=== PATIENT | male | born 1930 | race Caucasian/White ===

== ENCOUNTER → 2016-08-07 | Outpatient (CLI) | payer OTHER, MEDICARE ==
[~2016-08-07] MED LIST: ASPI81TA21 PO; CEFD1CAP14 PO; DICL-201 PO; DICL1GEL12 TOP; DTRSR/2 PO; LEVO88TA PO; LIDO1CRE16 TOP; LVQ500 PO; MOMLX PO; MULT-190 PO; Nicotine TD; POLY335019 PO; RISP0.5T4 PO; SENN-65 PO; SIMV40TA4 PO; TPRSR25 PO; TRAZ50TA35 PO
[2016-08-07 12:47] LABS: BASO % 0.7 %; BASO ABS # 0.04 K/uL (0-0.2); EOS % 3.7 %; HEMATOCRIT 35.7 % (42-52); IG% 0.7 %; LYMPH % 30.9 %; LYMPH ABS # 1.86 K/uL (1.2-3.4); MEAN CELL VOLUME 94.9 fL (80-100); MEAN CORPUSCULAR HEMOGLOBIN 31.9 pg (25-34); MEAN CORPUSCULAR HGB CONC 33.6 g/dl (32-36); MEAN PLATELET VOLUME 9.4 fL (7.4-10.4); MONO % 7.3 %; NEUT % 56.7 %; PLATELET COUNT 124 K/uL (130-400); RED BLOOD COUNT 3.76 M/uL (4.7-6.1); WHITE BLOOD COUNT 6.01 K/uL (4.8-10.8)
[2016-08-07 13:01] LABS: FERRITIN 93.8 ng/ml (8.0-388.0)
[2016-08-07 13:16] LABS: COMPLETE YES
== END | disposition home or self-care (01) ==
LOC: C.LABSPEC 12:11
PROVIDERS: ATTEND Internal Medicine Hematology & Oncology
DX: G93.41 Metabolic encephalopathy (principal); D63.8 Anemia in other chronic diseases classified elsewhere; E11.9 Type 2 diabetes mellitus without complications; D50.9 Iron deficiency anemia, unspecified

== ENCOUNTER 2016-11-04 07:16 | Emergency (ER) | payer OTHER, MEDICARE ==
[~2016-11-04] VITALS: Ht 175.3 cm; Wt 120.0 kg
[~2016-11-04 07:16] MED LIST changes: -CEFD1CAP14 PO; -DICL1GEL12 TOP; -LIDO1CRE16 TOP; -LVQ500 PO; -MOMLX PO; -Nicotine TD; -POLY335019 PO; -RISP0.5T4 PO; -TPRSR25 PO; -TRAZ50TA35 PO
[2016-11-04 07:21] VITALS: O2SAT 91; Ht 175.3 cm; Wt 120.0 kg
--- NOTE | 2016-11-04 08:02 | DIAGNOSTIC IMAGING REPORT ---
CHEST ONE VIEW PORTABLE CLINICAL HISTORY: cough, sob COMPARISON STUDY: 12/24/2015 FINDINGS: The cardiac and mediastinal contours remain stable. There is a right internal jugular A-Port catheter. There is no failure. There is no lobar consolidation. There is minor basilar atelectatic change. No pleural effusions are visualized.[ IMPRESSION: AP portable study. No acute findings. Electronically signed by: Guy Valdez M.D. 11/04/2016 8:01 AM Dictated Date/Time: 11/04/2016 8:00 AM
[2016-11-04] MEDS ORDERED: DICL1GEL12 TOP (08:09)
[2016-11-04] MEDS ORDERED: LIDO1CRE16 TOP (08:09)
[2016-11-04 08:15] LABS: HEMATOCRIT 39.2 % (42-52); MEAN CELL VOLUME 95.6 fL (80-100); MEAN CORPUSCULAR HEMOGLOBIN 31.2 pg (25-34); MEAN CORPUSCULAR HGB CONC 32.7 g/dl (32-36); MEAN PLATELET VOLUME 9.1 fL (7.4-10.4); PLATELET COUNT 103 K/uL (130-400); WHITE BLOOD COUNT 7.44 K/uL (4.8-10.8)
--- NOTE | 2016-11-04 08:19 | EMERGENCY ROOM VISIT NOTE ---
History Report prepared by Tory: Franchesca Reynoso Under the Supervision of: Dr. Shireen Nelson M.D. First contact with patient: 07:31 Chief Complaint: SHORTNESS OF BREATH Stated Complaint: CAN'T BREATH, UPSET STOMACH, WEAK, DONT FEEL WELL Nursing Triage Summary: Triage note: Pt reports nausea "all night." pt reports shortness of breath for the past several days. pt reports generalized weakness. pt reports "i have a permanent catheter." History of Present Illness The patient is a 86 year old male who presents to the Emergency Room with complaints of constant shortness of breath beginning 2 days ago. The patient states that he has felt generally ill over the last week and has developed a cough and shortness of breath over the last 2 days. He complains of chills, fatigue, tiredness, lower back pain, and a cough. He denies any chest pain, abdominal pain, vomiting, diarrhea, and change in mental status. The patient reports that he has not been sleeping well and has little energy. He notes that he has a history of recurrent UTI, chronic indwelling Monson catheter, and aortic stenosis. The patient last had his Monson changed 3 weeks ago and is scheduled to have it changed again next week. Source of History: patient Onset: 2 days ago Position: other (global) Quality: other (SOB) Timing: constant Associated Symptoms: + back pain, + chills, + cough, No abdominal pain, No chest pain, No diarrhea, No vomiting Note: He complains of fatigue, tiredness. He denies any change in mental status. Review of Systems See HPI for pertinent positives & negatives. A total of 10 systems reviewed and were otherwise negative. Past Medical & Surgical Medical Problems: (1) Aortic stenosis, severe (2) Chronic anemia (3) Dyslipidemia (4) History of colon cancer (5) Hypertension (6) Lymphoma (7) Obesity Surgical Problems: (1) H/O cataract removal with insertion of prosthetic lens (2) History of amputation of lesser toe of right foot (3) S/P TURP (status post transurethral resection of prostate) Family History Omitted due to age Social History Smoking Status: Former Smoker Alcohol Use: none Drug Use: none Marital Status: Housing Status: lives with significant other Occupation Status: retired Current/Historical Medications Scheduled Aspirin Enteric Coated (Ecotrin Or Generic), 81 MG PO QAM Cefdinir (Omnicef), 300 MG PO Q12H Levothyroxine Sodium (Synthroid), 2 TAB PO QAM Ocuvite Preservision (Ocuvite Preservision), 1 TAB PO BID Simvastatin (Zocor), 20 MG PO HS Trazodone Hcl (Trazodone), Unknown Dose PO UD Scheduled PRN Diclofenac Sodium (Topical) (Voltaren 1% Top Gel), Unknown Dose TOP DAILY PRN for Pain Lidocaine-Prilocaine (Lidocaine/Prilocaine), 1 APPLN TOP UD PRN for Pain Senna/Docusate Sod (Senokot S), 1 TAB PO DAILY PRN for Constipation Allergies Coded Allergies: Baclofen (Unverified Allergy, Unknown, HIVES, 11/04/16) Sulfamethoxazole w/Trimethoprim (Unverified Allergy, Unknown, rash per PCP records , 11/04/16) Physical Exam Vital Signs Date Time Temp Pulse Resp B/P Pulse Ox O2 Delivery O2 Flow Rate FiO2 11/04/16 10:57 37.3 66 18 108/62 11/04/16 10:08 94 18 104/60 11/04/16 09:05 96 18 119/68 11/04/16 08:10 95 11/04/16 07:21 91 11/04/16 07:21 37.8 94 20 129/70 92 Room Air Physical Exam Vital signs reviewed. General: Elderly, chronically ill appearing, obese, Monson catheter in place, in no significant distress. HEENT: No scleral icterus, PERRLA, neck supple. Atraumatic. Cardiovascular: Regular rate and rhythm, no extra sounds. Pulmonary: Clear to auscultation bilaterally, normal work of breathing. Moist cough with green sputum. Abdomen: Soft, nontender, nondistended, positive bowel sounds. Musculoskeletal: Atraumatic, no peripheral edema. Neurologic: Patient awake alert and oriented x 3 generally weak however no focal deficit appreciated. Skin: Warm, dry, no rash Medical Decision & Procedures ER Provider Diagnostic Interpretation: X-ray results as stated below per interpretation by me and the radiologist: CHEST ONE VIEW PORTABLE FINDINGS: The cardiac and mediastinal contours remain stable. There is a right internal jugular A-Port catheter. There is no failure. There is no lobar consolidation. There is minor basilar atelectatic change. No pleural effusions are visualized.[ IMPRESSION: AP portable study. No acute findings. Electronically signed by: Guy Valdez M.D. 11/04/2016 8:01 AM Dictated Date/Time: 11/04/2016 8:00 AM Laboratory Results 11/04/16 07:50 Red Blood Count 4.10, Mean Corpuscular Volume 95.6, Mean Corpuscular Hemoglobin 31.2, Mean Corpuscular Hemoglobin Concent 32.7, Mean Platelet Volume 9.1, Neutrophils (%) (Auto) 67.4, Lymphocytes (%) (Auto) 17.3, Monocytes (%) (Auto) 12.2, Eosinophils (%) (Auto) 1.9, Basophils (%) (Auto) 0.3, Neutrophils # (Auto ) 5.01, Lymphocytes # (Auto) 1.29, Monocytes # (Auto) 0.91, Eosinophils # (Auto ) 0.14, Basophils # (Auto) 0.02 11/04/16 07:50 Test 11/04/16 07:50 11/04/16 08:14 11/04/16 08:40 White Blood Count 7.44 K/uL (4.8-10.8) Red Blood Count 4.10 M/uL (4.7-6.1) Hemoglobin 12.8 g/dL (14.0-18.0) Hematocrit 39.2 % (42-52) Mean Corpuscular Volume 95.6 fL (80-100) Mean Corpuscular Hemoglobin 31.2 pg (25-34) Mean Corpuscular Hemoglobin Concent 32.7 g/dl (32-36) Platelet Count 103 K/uL (130-400) Mean Platelet Volume 9.1 fL (7.4-10.4) Neutrophils (%) (Auto) 67.4 % Lymphocytes (%) (Auto) 17.3 % Monocytes (%) (Auto) 12.2 % Eosinophils (%) (Auto) 1.9 % Basophils (%) (Auto) 0.3 % Neutrophils # (Auto) 5.01 K/uL (1.4-6.5) Lymphocytes # (Auto) 1.29 K/uL (1.2-3.4) Monocytes # (Auto) 0.91 K/uL (0.11-0.59) Eosinophils # (Auto) 0.14 K/uL (0-0.5) Basophils # (Auto) 0.02 K/uL (0-0.2) RDW Standard Deviation 47.5 fL (36.4-46.3) RDW Coefficient of Variation 13.5 % (11.5-14.5) Immature Granulocyte % (Auto) 0.9 % Immature Granulocyte # (Auto) 0.07 K/uL (0.00-0.02) Anion Gap 8.0 mmol/L (3-11) Est Creatinine Clear Calc Drug Dose 72.7 ml/min Estimated GFR () 84.3 Estimated GFR (Non- 72.7 BUN/Creatinine Ratio 23.6 (10-20) Calcium Level 8.7 mg/dl (8.5-10.1) Lactic Acid Level 1.3 mmol/L (0.4-2.0) Urine Color YELLOW Urine Appearance CLEAR (CLEAR) Urine pH 5.0 (4.5-7.5) Urine Specific [place] 1.015 (1.000-1.030) Urine Protein NEG (NEG) Urine Glucose (UA) NEG (NEG) Urine Ketones NEG (NEG) Urine Occult Blood TRACE (NEG) Urine Nitrite POS (NEG) Urine Bilirubin NEG (NEG) Urine Urobilinogen NEG (NEG) Urine Leukocyte Esterase MODERATE (NEG) Urine WBC (Auto) 10-30 /hpf (0-5) Urine RBC (Auto) 0-4 /hpf (0-4) Urine Hyaline Casts (Auto) 1-5 /lpf (0-5) Urine Epithelial Cells (Auto) 0-5 /lpf (0-5) Urine Bacteria (Auto) 1+ (NEG) Laboratory results per my review. Medications Administered Medications (Trade) Dose Ordered Sig/Robert Route Start Time Stop Time Status Last Admin Dose Admin Acetaminophen 650 mg 650 mg NOW STAT PO 11/04/16 08:39 11/04/16 08:41 DC 11/04/16 09:06 650 MG Sodium Chloride (Nss 1000ml) 1,000 ml @ 100 mls/hr Q10H IV 11/04/16 08:45 11/04/16 11:42 DC 11/04/16 09:07 100 MLS/HR Ceftriaxone Sodium (Rocephin Inj) 1 gm NOW STAT IV 11/04/16 09:06 11/04/16 09:07 DC 11/04/16 09:31 1 GM Albuterol/ Ipratropium (Duoneb) 3 ml ONE ONCE INH 11/04/16 09:15 11/04/16 09:16 DC 11/04/16 09:33 3 ML ECG Rate (beats per minute): 96 Rhythm: sinus rhythm Findings: RBBB, left axis deviation, other (Premature supraventricular complexes, previous inferior infarct) ED Course 0731: Past medical records reviewed. The patient was evaluated in room B10. A complete history and physical examination was performed. 0839: Tylenol Tab 650mg PO. 0845: Sodium Chloride 1000 ml @ 100 mls/hr IV. 0906: Rocephin Inj 1gm IV. 0915: Duoneb 3ml INH. 0952: I reevaluated the patient and he is doing well. 1021: Upon reevaluation, the patient appeared to have improvement of his symptoms. I discussed findings with the patient. He verbalized agreement of the treatment plan. The patient was discharged home. Medical Decision Differential diagnosis: Influenza, other viral illness, pneumonia, urinary tract infection, metabolic abnormality, medication effect, cellulitis, meningitis, intra-abdominal source. Medication Reconciliation: I attest that I have personally reviewed the patient' s current medication list. Blood Pressure Screening: Patient was found to have normal blood pressure on screening and does not require follow-up. This patient was evaluated and appeared to be in no significant distress. The patient had a mild increased work of breathing with moist cough. The patient had spit up some green sputum prior to my evaluation. Chest x-ray is clear. Laboratory work reveals a normal white blood cell count, UA is concerning for infection. Monson catheter was changed. The patient was medicated with IV ceftriaxone. He was given oral Tylenol for his low-grade fever. Patient felt better after a DuoNeb treatment. He was placed on Omnicef 300 mg twice a day for 10 days. Patient will follow-up with his physician this week for reevaluation and return to the ER for worsening of symptoms or any medical concerns. Impression Primary Impression: UTI (urinary tract infection) Additional Impression: Bronchitis Scribe Attestation The scribe's documentation has been prepared under my direction and personally reviewed by me in its entirety. I confirm that the note above accurately reflects all work, treatment, procedures, and medical decision making performed by me. Departure Information Dispostion Home / Self-Care Prescriptions Cefdinir (Omnicef) 300 Mg Cap 300 MG PO Q12H for 10 Days, #20 CAP Prov: Minh Sage MD 11/04/16 Referrals Arash Gomez M.D. (PCP) Forms HOME CARE DOCUMENTATION FORM, IMPORTANT VISIT INFORMATION Patient Instructions My [facility] Additional Instructions - Please follow up with your Primary Care Physician in the next week - For your records you had your Monson Catheter changed on 11/04/2016 - Please take Omnicef 300mg tablet twice daily for your urinary tract infection and also bronchitis - Continue to take Tylenol as needed for fever - If your symptoms do not improve over the next 3 days or you present with worsening fever, chills, fatigue, change in mental status, shortness of breath, or any other concerning symptoms please return to the hospital to be evaluated Problem Qualifiers
[2016-11-04 08:31] LABS: BUN/CREATININE RATIO 23.6 (10-20); CREATININE 0.95 mg/dl (0.60-1.40)
[2016-11-04 08:37] LABS: CALCIUM 8.7 mg/dl (8.5-10.1)
[2016-11-04] MEDS ORDERED: ACETAMINOPHEN 325 MG TAB PO STA (08:39)
[2016-11-04 08:44] LABS: BASO % 0.3 %; BASO ABS # 0.02 K/uL (0-0.2); COMPLETE YES; EOS % 1.9 %; IG% 0.9 %; LYMPH % 17.3 %; LYMPH ABS # 1.29 K/uL (1.2-3.4); MONO % 12.2 %; NEUT % 67.4 %
[2016-11-04] MEDS ORDERED: SODIUM CHLORIDE 0.9% 1000ML 1,000 ML IV SCH (08:45)
[2016-11-04 09:00] LABS: MANUAL MICROSCOPIC REQUIRED? NO; REVIEW REQ? NO; URINE APPEARANCE CLEAR (CLEAR); URINE BILIRUBIN NEG (NEG); URINE COLOR YELLOW; URINE EPITHELIAL CELL AUTO 0-5 /lpf (0-5); URINE NITRITE POS (NEG); URINE SPECIFIC GRAVITY 1.015 (1.000-1.030); UROBILINOGEN NEG (NEG)
[2016-11-04] MEDS ORDERED: CEFTRIAXONE SOD INJ 1 GM ADDVIAL IV STA (09:06)
[2016-11-04] MEDS ORDERED: TRAZ50TA35 PO (09:13)
[2016-11-04] MEDS ORDERED: ALBUT/IPRATROP 3MG/0.5MG NEB 3 ML VIAL INH ONE (09:15)
--- NOTE | 2016-11-04 10:17 | EMERGENCY ROOM VISIT NOTE ---
History First contact with patient: 07:32 Chief Complaint: SHORTNESS OF BREATH Stated Complaint: CAN'T BREATH, UPSET STOMACH, WEAK, DONT FEEL WELL Nursing Triage Summary: Triage note: Pt reports nausea "all night." pt reports shortness of breath for the past several days. pt reports generalized weakness. pt reports "i have a permanent catheter." History of Present Illness The patient is a 86 year old male with a past medical history of recurrent UTI, chronic indwelling beebe catheter, and aortic stenosis who presents to the Emergency Room with complaints of shortness of breath and fatigue. The patient states that he has felt "bad all over" for the last weeks. Over the last 2 days his has noticed he has been coughing more often and more tired. He says he has no energy and wants to sleep all day. The patient states he has had the chills and has not been sleeping well. The patient last had his beebe changed 3 weeks ago and is scheduled to have it changed again next week. He denies any fevers, nausea, vomiting, diarrhea, abdominal pain, or chest pain. Review of Systems See HPI for pertinent positives and negatives. A total of ten systems were reviewed and were otherwise negative. Past Medical/Surgical History Medical Problems: (1) Aortic stenosis, severe (2) Chronic anemia (3) Dyslipidemia (4) History of colon cancer (5) Hypertension (6) Lymphoma (7) Obesity Surgical Problems: (1) H/O cataract removal with insertion of prosthetic lens (2) History of amputation of lesser toe of right foot (3) S/P TURP (status post transurethral resection of prostate) Family History Omitted due to age Social History Smoking Status: Former Smoker Alcohol Use: none Drug Use: none Marital Status: Housing Status: lives with significant other Occupation Status: retired Current/Historical Medications Scheduled Aspirin Enteric Coated (Ecotrin Or Generic), 81 MG PO QAM Levothyroxine Sodium (Synthroid), 2 TAB PO QAM Ocuvite Preservision (Ocuvite Preservision), 1 TAB PO BID Simvastatin (Zocor), 20 MG PO HS Trazodone Hcl (Trazodone), Unknown Dose PO UD Scheduled PRN Diclofenac Sodium (Topical) (Voltaren 1% Top Gel), Unknown Dose TOP DAILY PRN for Pain Lidocaine-Prilocaine (Lidocaine/Prilocaine), 1 APPLN TOP UD PRN for Pain Senna/Docusate Sod (Senokot S), 1 TAB PO DAILY PRN for Constipation Allergies Coded Allergies: Baclofen (Unverified Allergy, Unknown, HIVES, 11/04/16) Sulfamethoxazole w/Trimethoprim (Unverified Allergy, Unknown, rash per PCP records , 11/04/16) Physical Exam Vital Signs Date Time Temp Pulse Resp B/P Pulse Ox O2 Delivery O2 Flow Rate FiO2 11/04/16 09:05 96 18 119/68 11/04/16 08:10 95 11/04/16 07:21 91 11/04/16 07:21 37.8 94 20 129/70 92 Room Air Physical Exam GENERAL: Awake, alert, well-appearing, in no distress HENT: Normocephalic, atraumatic. Oropharynx unremarkable. EYES: Normal conjunctiva. Sclera non-icteric. NECK: Supple. No nuchal rigidity. RESPIRATORY: Clear to auscultation. CARDIAC: Regular rate, normal rhythm. Systolic ejection murmur. Extremities warm and well perfused. Pulses equal. ABDOMEN: Soft, non-distended. Suprapubic tenderness to palpation. No rebound or guarding. No masses. RECTAL: Deferred. MUSCULOSKELETAL: Chest examination reveals no tenderness. The back is symmetrical on inspection without obvious abnormality. There is no CVA tenderness to palpation. Lower midline back pain. LOWER EXTREMITIES: Calves are equal size bilaterally and non-tender. No edema. No discoloration. NEURO: Patient has some element of dementia but does respond appropriately to questions. SKIN: No rash or jaundice noted. Medical Decision & Procedures Laboratory Results 11/04/16 07:50 Red Blood Count 4.10, Mean Corpuscular Volume 95.6, Mean Corpuscular Hemoglobin 31.2, Mean Corpuscular Hemoglobin Concent 32.7, Mean Platelet Volume 9.1, Neutrophils (%) (Auto) 67.4, Lymphocytes (%) (Auto) 17.3, Monocytes (%) (Auto) 12.2, Eosinophils (%) (Auto) 1.9, Basophils (%) (Auto) 0.3, Neutrophils # (Auto ) 5.01, Lymphocytes # (Auto) 1.29, Monocytes # (Auto) 0.91, Eosinophils # (Auto ) 0.14, Basophils # (Auto) 0.02 11/04/16 07:50 Test 11/04/16 07:50 11/04/16 08:14 11/04/16 08:40 White Blood Count 7.44 K/uL (4.8-10.8) Red Blood Count 4.10 M/uL (4.7-6.1) Hemoglobin 12.8 g/dL (14.0-18.0) Hematocrit 39.2 % (42-52) Mean Corpuscular Volume 95.6 fL (80-100) Mean Corpuscular Hemoglobin 31.2 pg (25-34) Mean Corpuscular Hemoglobin Concent 32.7 g/dl (32-36) Platelet Count 103 K/uL (130-400) Mean Platelet Volume 9.1 fL (7.4-10.4) Neutrophils (%) (Auto) 67.4 % Lymphocytes (%) (Auto) 17.3 % Monocytes (%) (Auto) 12.2 % Eosinophils (%) (Auto) 1.9 % Basophils (%) (Auto) 0.3 % Neutrophils # (Auto) 5.01 K/uL (1.4-6.5) Lymphocytes # (Auto) 1.29 K/uL (1.2-3.4) Monocytes # (Auto) 0.91 K/uL (0.11-0.59) Eosinophils # (Auto) 0.14 K/uL (0-0.5) Basophils # (Auto) 0.02 K/uL (0-0.2) RDW Standard Deviation 47.5 fL (36.4-46.3) RDW Coefficient of Variation 13.5 % (11.5-14.5) Immature Granulocyte % (Auto) 0.9 % Immature Granulocyte # (Auto) 0.07 K/uL (0.00-0.02) Anion Gap 8.0 mmol/L (3-11) Est Creatinine Clear Calc Drug Dose 72.7 ml/min Estimated GFR () 84.3 Estimated GFR (Non- 72.7 BUN/Creatinine Ratio 23.6 (10-20) Calcium Level 8.7 mg/dl (8.5-10.1) Lactic Acid Level 1.3 mmol/L (0.4-2.0) Urine Color YELLOW Urine Appearance CLEAR (CLEAR) Urine pH 5.0 (4.5-7.5) Urine Specific [place] 1.015 (1.000-1.030) Urine Protein NEG (NEG) Urine Glucose (UA) NEG (NEG) Urine Ketones NEG (NEG) Urine Occult Blood TRACE (NEG) Urine Nitrite POS (NEG) Urine Bilirubin NEG (NEG) Urine Urobilinogen NEG (NEG) Urine Leukocyte Esterase MODERATE (NEG) Urine WBC (Auto) 10-30 /hpf (0-5) Urine RBC (Auto) 0-4 /hpf (0-4) Urine Hyaline Casts (Auto) 1-5 /lpf (0-5) Urine Epithelial Cells (Auto) 0-5 /lpf (0-5) Urine Bacteria (Auto) 1+ (NEG) Medications Administered Medications (Trade) Dose Ordered Sig/Robert Route Start Time Stop Time Status Last Admin Dose Admin Acetaminophen 650 mg 650 mg NOW STAT PO 11/04/16 08:39 11/04/16 08:41 DC 11/04/16 09:06 650 MG Sodium Chloride (Nss 1000ml) 1,000 ml @ 100 mls/hr Q10H IV 11/04/16 08:45 12/04/16 08:44 11/04/16 09:07 100 MLS/HR Ceftriaxone Sodium (Rocephin Inj) 1 gm NOW STAT IV 11/04/16 09:06 11/04/16 09:07 DC 11/04/16 09:31 1 GM Albuterol/ Ipratropium (Duoneb) 3 ml ONE ONCE INH 11/04/16 09:15 11/04/16 09:16 DC 11/04/16 09:33 3 ML Medical Decision Patient is an 86 year old male that presents with fatigue and cough Differential Diagnosis: Catheter associated UTI, Bronchitis, Pneumonia, Viral URI, Pyelonephritis, Gastroenteritis, Dehydration Labs Ordered: CBC, BMP, Urinalysis, Urine Culture, Lactic Acid Imaging: Chest XRay, EKG Patient given IV NS at 100ml/hr and Tylenol 650mg for headache and fever UA returned with appearance of UTI (blood, nitrite, leuk esterase) and sample from cath not contaminated - Patient given 1g Rocephin - Changed Catheter - Given DuoNeb breathing treatment Impression Primary Impression: Urinary tract infection associated with indwelling urethral catheter Additional Impression: Acute bronchitis Departure Information Dispostion Home / Self-Care Condition GOOD Referrals Arash Gomez M.D. (PCP) Patient Instructions My [facility] Problem Qualifiers Primary Impression: Urinary tract infection associated with indwelling urethral catheter Encounter type: initial encounter Qualified Codes: T83.511A - Infection and inflammatory reaction due to indwelling urethral catheter, initial encounter; N39.0 - Urinary tract infection, site not specified
[2016-11-04] MEDS ORDERED: CEFD1CAP14 PO (10:23)
[2016-11-04 10:57] VITALS: BP 108/62; PULSE 66; TEMP 37.3
[2016-11-04] MEDS ORDERED: POLY335019 PO (18:31)
[2016-11-04] MEDS ORDERED: DICL-201 PO (18:31)
[2016-11-06] MEDS ORDERED: Nicotine TD (10:03)
[2016-11-06] MEDS ORDERED: LVQ500 PO (10:03)
[2016-11-06] MEDS ORDERED: TPRSR25 PO (10:03)
[2016-11-06] MEDS ORDERED: MOMLX PO (10:03)
[2016-11-06] MEDS ORDERED: RISP0.5T4 PO (10:03)
--- NOTE | 2016-11-06 11:23 | Pharmacy Progress Note ---
ED Pharmacist Culture FollowUp Date of Service: Nov 06, 2016. Patient was seen in ER on 11/04 for complicated UTI. He initially left the ER after receiving IV abx and rx for PO abx however returned later in the day with fever and SIRS. He was admitted to [facility] with sepsis. His urine cx from that ER visit is growing pansensitive e coli. He remains hospitalized and ID is following this patient. ID noted that the ER cx is growing pansensitive e coli. He is currently receiving PO Levofloxacin which will cover this organism based upon cx result. No action required from ED at this time.
== END 2016-11-04 10:59 | disposition home or self-care (01) ==
LOC: C.EDB 07:19
DX: N39.0 Urinary tract infection, site not specified (principal); J40 Bronchitis, not specified as acute or chronic; I35.0 Nonrheumatic aortic (valve) stenosis; D64.9 Anemia, unspecified; E78.5 Hyperlipidemia, unspecified; I10 Essential (primary) hypertension; E66.9 Obesity, unspecified; C85.90 Non-Hodgkin lymphoma, unspecified, unspecified site; I45.10 Unspecified right bundle-branch block; Z96.0 Presence of urogenital implants; Z87.440 Personal history of urinary (tract) infections; Z85.038 Personal history of other malignant neoplasm of large intestine; Z87.891 Personal history of nicotine dependence; Z89.421 Acquired absence of other right toe(s); Z79.82 Long term (current) use of aspirin

== ENCOUNTER 2016-11-04 18:00 | Inpatient (IN) | payer OTHER, MEDICARE ==
[~2016-11-04] VITALS: Ht 177.8 cm; Wt 111.8 kg
[~2016-11-04 18:00] MED LIST changes: +CEFD1CAP14 PO; +DICL1GEL12 TOP; +LIDO1CRE16 TOP; +TRAZ50TA35 PO
[2016-11-04] MEDS ORDERED: PIPERACILLIN/TAZOBACTAM 4.5 GM/100ML D5W IV STA (18:19)
[2016-11-04] MEDS ORDERED: VANCOMYCIN INJ 2,300 MG in SODIUM CHLORIDE 0.9% 500ML 500 ML IV STA (18:19)
[2016-11-04] MEDS ORDERED: SODIUM CHLORIDE 0.9% 1000ML 1,000 ML IV STA ×3 (18:19→19:20)
[2016-11-04] MEDS ORDERED: ACETAMINOPHEN 325 MG TAB PO STA (18:26)
[2016-11-04] MEDS ORDERED: DICL-201 PO (18:31)
[2016-11-04] MEDS ORDERED: POLY335019 PO (18:31)
--- NOTE | 2016-11-04 18:36 | DIAGNOSTIC IMAGING REPORT ---
SINGLE VIEW CHEST CLINICAL HISTORY: Generalized weakness. Fever. FINDINGS: An AP, portable, upright chest radiograph is compared to study performed by the same day 11/04/2016 and correlated with chest CT dated 03/30/2012.. The examination is degraded by portable technique, motion artifact, large body habitus, and patient rotation. A right internal jugular central venous infusion port is unchanged in position. The heart is enlarged and there is atherosclerotic calcification of the thoracic aorta. The pulmonary vasculature is noncongested. Chronic interstitial thickening is unchanged. No pleural effusion or focal airspace consolidation is identified. Linear atelectasis is seen at the lung bases. No pneumothorax is seen. The skeletal structures are osteopenic. The bony thorax is grossly intact. IMPRESSION: Cardiomegaly with no acute cardiopulmonary abnormality. There has been no significant change from today's earlier examination. Electronically signed by: Nathan Cuadra M.D. 11/04/2016 6:34 PM Dictated Date/Time: 11/04/2016 6:32 PM
[2016-11-04 18:37] LABS: HEMATOCRIT 37.1 % (42-52); MEAN CELL VOLUME 96.4 fL (80-100); MEAN CORPUSCULAR HEMOGLOBIN 32.5 pg (25-34); MEAN CORPUSCULAR HGB CONC 33.7 g/dl (32-36); RED BLOOD COUNT 3.85 M/uL (4.7-6.1); WHITE BLOOD COUNT 10.13 K/uL (4.8-10.8)
[2016-11-04 18:50] LABS: PARTIAL THROMBOPLASTIN RATIO 1.2; PROTHROMBIN TIME (PATIENT) 10.7 SECONDS (9.0-12.0)
[2016-11-04 18:59] LABS: BUN/CREATININE RATIO 23.1 (10-20); CALCIUM 8.2 mg/dl (8.5-10.1); CREATININE 0.95 mg/dl (0.60-1.40); POTASSIUM 4.1 mmol/L (3.5-5.1)
[2016-11-04 19:40] LABS: MAGNESIUM 1.8 mg/dl (1.8-2.4); THYROID STIMULATING HORMONE 1.79 uIu/ml (0.300-4.500)
--- NOTE | 2016-11-04 19:47 | History and Physical ---
History & Physical Date & Time of Service: November 04, 2016 at 19:47 Chief Complaint: Fever, Sob, Sepsis Alert Primary Care Physician: Arash Gomez M.D. History of Present Illness Source: family (DAUGHTERS , ) this is a 86 yo Male with hx of chronic indwelling catheter /recurrent UTI ( last urine culture-MRSA ) , critical aortic stenosis , hx of large cell lymphoma on remission presented to ED with complain of fever , generalized weakness, worsening of mental status , lethargy history obtained form Family members -daughters , present at bedside as pt was not able to stay awake through the conversation pt as brought to ED earlier today morning for weakness, chills , concern for possible UTI as all his prior episodes had similar presentation in ED visit -UA was found to be grossly positive , had normal white count , afebrile pt was discharged home with Omnicef /Cefdinir PO , as pt returned home in few hours -started to spike fever, had chills and rigor severe weakness, need 2 person to get him up to bathroom more lethargic and sleepy Family brought pt to ED as his condition detoriated pt was found to be febrile , hypotensive , tachycardic , in rapid afib ( no prior diagnosis of arrhythmia) elevated Lactic acid 2.4 ( am level was 1.3 ) no complain of SOB , chest heaviness Past Medical/Surgical History Medical Problems: (1) Aortic stenosis, severe Permanent Comment: echo 2015: critical Status: Chronic (2) Chronic anemia Status: Chronic (3) Dyslipidemia Status: Chronic (4) History of colon cancer Status: Chronic (5) Hypertension Status: Chronic (6) Lymphoma Permanent Comment: remission Status: Resolved (7) Obesity Status: Chronic Surgical Problems: (1) H/O cataract removal with insertion of prosthetic lens Permanent Comment: R side Status: Resolved (2) History of amputation of lesser toe of right foot Permanent Comment: 3rd toe amputation 2* gangrene Status: Resolved (3) S/P TURP (status post transurethral resection of prostate) Status: Resolved Family History Omitted due to age Social History Smoking Status: Former Smoker Drug Use: none Marital Status: Housing status: lives with family Occupational Status: retired Immunizations History of Influenza Vaccine: Yes History of Tetanus Vaccine?: Unknown History of Pneumococcal: Yes History of Hepatitis B Vaccine: No Multi-Drug Resistant Organisms History of MDRO: Yes Type of MDRO: MRSA Allergies Coded Allergies: Baclofen (Verified Allergy, Intermediate, HIVES, 11/04/16) Sulfamethoxazole w/Trimethoprim (Verified Allergy, Mild, rash per PCP records , 11/04/16) Home Medications Scheduled Aspirin Enteric Coated (Ecotrin Or Generic), 81 MG PO QAM Cefdinir (Omnicef), 300 MG PO Q12H Levothyroxine Sodium (Synthroid), 2 TAB PO QAM Ocuvite Preservision (Ocuvite Preservision), 1 TAB PO BID Polyethylene Glycol 3350 (Miralax), 17 GM PO DAILY Simvastatin (Zocor), 40 MG PO HS Scheduled PRN Diclofenac (Voltaren), 75 MG PO DAILY PRN for PRN Lidocaine-Prilocaine (Lidocaine/Prilocaine), 1 APPLN TOP UD PRN for Pain Review of Systems Constitutional: + chills, + fatigue, + fever, + sweats, + weakness Respiratory: + cough Cardiovascular: No PND, No chest pain, No claudication, No edema, No orthopnea , No palpitations, No problem reported Abdomen: No GI bleeding, No constipation, No diarrhea, No nausea, No pain, No problem reported, No vomiting Musculoskeletal: No calf pain, No joint pain, No muscle pain, No problem reported, No swelling Genitourinary - Male: + urinary incontinence (ON CHRONIC BEY CATHETER ) Neurologic: + problem reported (LETHERGY ), + weakness Endocrine: + fatigue Physical Exam Vital Signs Date Time Temp Pulse Resp B/P Pulse Ox O2 Delivery O2 Flow Rate FiO2 11/04/16 19:27 37.6 108 20 11/04/16 18:37 115 17 109/59 96 Nasal Cannula 2.0 11/04/16 18:30 95 Nasal Cannula 2.0 11/04/16 18:29 93 Room Air 11/04/16 18:27 93 Room Air 11/04/16 18:25 39.3 115 24 114/59 93 Room Air 11/04/16 18:20 120 General Appearance: no apparent distress Eyes: sclerae normal Respiratory/Chest: lungs clear, normal breath sounds, no respiratory distress Cardiovascular: + tachycardia, + irregularly irregular Abdomen/GI: normal bowel sounds, non tender, soft Extremities/Musculoskelatal: normal capillary refill, + pedal edema (+1 ) Neurologic/Psych: + pertinent finding (LETHERGIC , OPENS EYES TO VOICE , ABLE TO ANSWER QUESTIONS ) Diagnostics Laboratory Results Results Past 24 Hours Test 11/04/16 18:15 11/04/16 18:25 11/04/16 19:18 Range/Units Bedside Prothrombin Time INR 1.1 0.9-1.1 Bedside Glucose 127 70-99 mg/dl White Blood Count 10.13 4.8-10.8 K/uL Red Blood Count 3.85 4.7-6.1 M/uL Hemoglobin 12.5 14.0-18.0 g/dL Hematocrit 37.1 42-52 % Mean Corpuscular Volume 96.4 80-100 fL Mean Corpuscular Hemoglobin 32.5 25-34 pg Mean Corpuscular Hemoglobin Concent 33.7 32-36 g/dl RDW Standard Deviation 47.9 36.4-46.3 fL RDW Coefficient of Variation 13.6 11.5-14.5 % Prothrombin Time 10.7 9.0-12.0 SECONDS Prothromb Time International Ratio 1.0 0.9-1.1 Activated Partial Thromboplast Time 29.9 21.0-31.0 SECONDS Partial Thromboplastin Ratio 1.2 Sodium Level 141 136-145 mmol/L Potassium Level 4.1 3.5-5.1 mmol/L Chloride Level 105 98-107 mmol/L Carbon Dioxide Level 27 21-32 mmol/L Anion Gap 9.0 3-11 mmol/L Blood Urea Nitrogen 22 7-18 mg/dl Creatinine 0.95 0.60-1.40 mg/dl Est Creatinine Clear Calc Drug Dose 73.2 ml/min Estimated GFR () 84.3 Estimated GFR (Non- 72.7 BUN/Creatinine Ratio 23.1 10-20 Random Glucose 145 70-99 mg/dl Calcium Level 8.2 8.5-10.1 mg/dl Magnesium Level 1.8 1.8-2.4 mg/dl Total Bilirubin 0.9 0.2-1 mg/dl Direct Bilirubin 0.2 0-0.2 mg/dl Aspartate Amino Transf (AST/SGOT) 22 15-37 U/L Alanine Aminotransferase (ALT/SGPT) 21 12-78 U/L Alkaline Phosphatase 67 45-117 U/L Troponin I 0.789 0-0.045 ng/ml Total Protein 6.5 6.4-8.2 gm/dl Albumin 3.6 3.4-5.0 gm/dl Lipase 192 73-393 U/L Thyroid Stimulating Hormone (TSH) 1.790 0.300-4.500 uIu/ml Bedside Lactic Acid Venous 2.46 0.90-1.70 mmol/L Microbiology Results 11/04/16 Blood Culture, Received Pending Diagnostic Radiology CHEST XRAY : PORTABLE -Cardiomegaly with no acute cardiopulmonary abnormality no significant change form today's earlier examination EKG AFIB WITH RVR @110 LEFT AXIS DEVIATION RBBB INFERIOR INFRACT NOTED IN PRIOR EKG Impression Assessment and Plan SEPSIS DUE TO UTI : -meets criteria -presented with fever , tachycardia , elevated lactic acid -possible source UTI , -complicated UTI due to chronic indwelling catheter -prior urine culture -staph aureus MRSA ( URINE CULTURE ON 10/27/15 ) -started on Vancomycin -added IV Zosyn for gram negative coverage has A port -( prior hx of Lymphoma completed chemo few yrs back ) -blood and urine culture ordered CRITICAL AORTIC STENOSIS : ECHO ON 04/2015 : severely calcified aortic valve /critical aortic stenosis , V max of 4.8 m/sec mild to moderate aortic regurgitation pt was found not a surgical candidate due to multiple co morbidities ( pt and family also declined aggressive measures ) need to be cautious with IV fluid resuscitation got 1 liter of NSS in ED already will order for gentle hydration of NSS @ 75 ml /hr X1 more liter cont to assess vol status and monitor of I's /0's very high risk for Flash pulmonary edema with vol overload due to critical repeat ECHO ordered to assess pt follows with Cardiology Dr Palma AFIB RVR -NEW DX : due to infection sepsis /critical pt denies on any chest pain , palpitation or SOB monitor in Tele ordered for Low dose Lopressor 12.5 mg BID with holding parameters IV heparin not ordered -thrombocytopenia , prior hx of anemia , GI bleed will defer to Cardiology for further recommendation ECHO ordered cardiology eval requested THROMBOCYTOPENIA ; possible due to sepsis platelet this Am 103-> 96 follow CBC daily avoid antiplatelets , anticoagulation MILD ELEVATION OF TROPONIN : possible due to demand ischemia due to above pt denies of any symptom of chest pain serial cardiac markers ordered ECHO in AM Cardiology eval requested HX OF LARGE CELL LYMPHOMA : -in remission -completed chemo few yrs back -blood cultures ordered for presence of A port /sepsis -Pt follows at [facility] FULL CODE -discussed with pt and family DVT PROPHYLAXIS : moderate to high risk sub q heparin not ordered for low platelet count SCD and teds ambulate as tolerated DISPOSITION : lives at home with active with home health recently had referral for home PT for bilateral knee pain /arthritis PT/OT EVAL prior to discharge Social service consulted for discharge planning Medicine follow up with Dr Gomez Level of Care Telemetry Resuscitation Status FULL RESUSCITATION VTE Prophylaxis VTE Risk Assessment Done? Y/N: Yes Risk Level: Moderate Given or contraindicated: T.E.D. Stockings, SCD's Additional Copies To Arash Gomez M.D., Michael G., DO
[2016-11-04] MEDS ORDERED: SODIUM CHLORIDE 0.9% 1000ML 1,000 ML IV SCH (19:50)
[2016-11-04 19:53] LABS: BASO ABS # 0.17 K/uL (0-0.2); BASOPHIL % 1.7 % (0-2); COMPLETE YES; LYMPHOCYTE % 21.7 %; MEAN PLATELET VOLUME 9.3 fL (7.4-10.4); META ABS # 0.09 K/uL (0-0); METAMYELOCYTE % 0.9 %; MYELOCYTE % 0.9 %; NEUTROPHILS % 64.4 %; PLATELET COUNT 96 K/uL (130-400); PLT ESTIMATE DECREASED
[2016-11-04] MEDS ORDERED: POLYETHYLENE (MIRALAX) 17 GM PACK PO PRN (20:00)
[2016-11-04] MEDS ORDERED: MAGNESIUM HYDROXIDE SUSP 30 ML UDC PO PRN (20:00)
[2016-11-04] MEDS ORDERED: ONDANSETRON INJ 2 MG/ML 2 ML VIAL IV PRN (20:00)
[2016-11-04] MEDS ORDERED: ZOLPIDEM TARTRATE 5 MG TAB PO PRN (20:00)
[2016-11-04] MEDS ORDERED: ALUMINUM/MAGNESIUM/SIMETH (MAALOX MAX) 30 ML UDC PO PRN (20:00)
[2016-11-04] MEDS ORDERED: NITROGLYCERIN 0.4 MG SL PER TAB CHARGE SL PRN (20:00)
[2016-11-04] MEDS ORDERED: PIPERACILL/TAZOBAC CONSULT ACTIVE SCH (20:13)
[2016-11-04] MEDS ORDERED: VANCOMYCIN CONSULT ACTIVE SCH (20:18)
[2016-11-04 20:36] VITALS: BP 112/62; PULSE 97; TEMP 37.6; O2SAT 97; Ht 177.8 cm; Wt 111.8 kg
[2016-11-04] MEDS ORDERED: HEPARIN IV LOW DOSE NO BOLUS SCH (20:41)
[2016-11-04 20:42] LABS: SMUDGE CELLS PRESENT
[2016-11-04] MEDS: METOPROLOL TARTRATE 25 MG TAB PO SCH (21:00)
[2016-11-04] MEDS ORDERED: HEPARIN 25,000 UNIT/500ML D5W 500 ML IV PRN (21:00)
[2016-11-04] MEDS: SIMVASTATIN 40 MG TAB PO SCH (21:00)
[2016-11-04] MEDS: CEROVITE ADV FORMULA TAB PO SCH (21:00)
--- NOTE | 2016-11-04 21:19 | EMERGENCY ROOM VISIT NOTE ---
History Report prepared by Tory: Deb Zuniga Under the Supervision of: Dr. Cody Roldan M.D. First contact with patient: 18:03 Stated Complaint: FEVER, SOB, SEPSIS ALERT History of Present Illness The patient is an 86 year old male who presents to the Emergency Room with complaints of a persistent illness that worsened just prior to arrival. Per records, the patient was seen and evaluated in the emergency department this morning for confusion, fatigue, and weakness, and found to have a urinary tract infection. Per records, the patient had his Monson catheter changed and was given a shot of Rocephin. Records indicate that the patient was discharged on Omnicef. The patient states that he arrived home today and developed a fever of 102 degrees Fahrenheit. He additionally associates tachycardia and shortness of breath with his symptoms today. The patient's family denies the patient wearing supplemental nasal cannula oxygen at home. They note that the patient has a history of recurrent UTIs and atrial fibrillation. The patient denies taking any Tylenol prior to arrival. The patient states that his shortness of breath has resolved with the DuoNeb treatment prior to arrival. The patient's family reports that the patient is currently undergoing treatments for lymphoma. Source of History: patient, family, other (records) Onset: prior to arrival Position: other (global) Quality: other (illness) Timing: worsening, other (persistent) Associated Symptoms: + SOB, + fevers Note: Associated Symptoms: tachycardia Review of Systems See HPI for pertinent positives and negatives. A total of ten systems were reviewed and were otherwise negative. Past Medical & Surgical Medical Problems: (1) Aortic stenosis, severe (2) Chronic anemia (3) Dyslipidemia (4) History of colon cancer (5) Hypertension (6) Lymphoma (7) Obesity (8) Sepsis Surgical Problems: (1) H/O cataract removal with insertion of prosthetic lens (2) History of amputation of lesser toe of right foot (3) S/P TURP (status post transurethral resection of prostate) Family History Omitted due to age Social History Smoking Status: Former Smoker Alcohol Use: none Drug Use: none Marital Status: Housing Status: lives with significant other Occupation Status: retired Current/Historical Medications Scheduled Aspirin Enteric Coated (Ecotrin Or Generic), 81 MG PO QAM Cefdinir (Omnicef), 300 MG PO Q12H Levothyroxine Sodium (Synthroid), 2 TAB PO QAM Ocuvite Preservision (Ocuvite Preservision), 1 TAB PO BID Polyethylene Glycol 3350 (Miralax), 17 GM PO DAILY Simvastatin (Zocor), 40 MG PO HS Scheduled PRN Diclofenac (Voltaren), 75 MG PO DAILY PRN for PRN Lidocaine-Prilocaine (Lidocaine/Prilocaine), 1 APPLN TOP UD PRN for Pain Allergies Coded Allergies: Baclofen (Verified Allergy, Intermediate, HIVES, 11/04/16) Sulfamethoxazole w/Trimethoprim (Verified Allergy, Mild, rash per PCP records , 11/04/16) Physical Exam Vital Signs Date Time Temp Pulse Resp B/P Pulse Ox O2 Delivery O2 Flow Rate FiO2 11/04/16 19:27 37.6 108 20 11/04/16 18:37 115 17 109/59 96 Nasal Cannula 2.0 11/04/16 18:30 95 Nasal Cannula 2.0 11/04/16 18:29 93 Room Air 11/04/16 18:27 93 Room Air 11/04/16 18:25 39.3 115 24 114/59 93 Room Air 11/04/16 18:20 120 Physical Exam GENERAL: Awake, alert, well-appearing, in no distress HENT: Normocephalic, atraumatic. Oropharynx unremarkable. EYES: Normal conjunctiva. Sclera non-icteric. NECK: Supple. No nuchal rigidity. FROM. No JVD. RESPIRATORY: Scattered wheezes. Mildly dyspneic. CARDIAC: Tachycardic rate, normal rhythm. Systolic ejection murmur. Extremities warm and well perfused. Pulses equal. ABDOMEN: Soft, non-distended. No tenderness to palpation. No rebound or guarding. No masses. RECTAL: Deferred. MUSCULOSKELETAL: Chest examination reveals no tenderness. No joint edema. LOWER EXTREMITIES: 2+ pitting edema to bilateral extremities. Calves are equal size bilaterally and non-tender. No discoloration. NEURO: Normal sensorium. No sensory or motor deficits noted. SKIN: No rash or jaundice noted. Medical Decision & Procedures ER Provider Diagnostic Interpretation: X-ray: Per my interpretation, radiologist review. SINGLE VIEW CHEST CLINICAL HISTORY: Generalized weakness. Fever. FINDINGS: An AP, portable, upright chest radiograph is compared to study performed by the same day 11/04/2016 and correlated with chest CT dated 03/30/2012.. The examination is degraded by portable technique, motion artifact, large body habitus, and patient rotation. A right internal jugular central venous infusion port is unchanged in position. The heart is enlarged and there is atherosclerotic calcification of the thoracic aorta. The pulmonary vasculature is noncongested. Chronic interstitial thickening is unchanged. No pleural effusion or focal airspace consolidation is identified. Linear atelectasis is seen at the lung bases. No pneumothorax is seen. The skeletal structures are osteopenic. The bony thorax is grossly intact. IMPRESSION: Cardiomegaly with no acute cardiopulmonary abnormality. There has been no significant change from today's earlier examination. Electronically signed by: Nathan Cuadra M.D. 11/04/2016 6:34 PM Dictated Date/Time: 11/04/2016 6:32 PM The status of this report is Signed. Draft = Not yet reviewed or approved by Radiologist. Signed = Reviewed and approved by Radiologist. Laboratory Results 11/04/16 18:25 Red Blood Count 3.85, Mean Corpuscular Volume 96.4, Mean Corpuscular Hemoglobin 32.5, Mean Corpuscular Hemoglobin Concent 33.7, Mean Platelet Volume 9.3 11/04/16 18:25 Test 11/04/16 18:15 11/04/16 18:25 11/04/16 19:18 Bedside Prothrombin Time INR 1.1 (0.9-1.1) Bedside Glucose 127 mg/dl (70-99) White Blood Count 10.13 K/uL (4.8-10.8) Red Blood Count 3.85 M/uL (4.7-6.1) Hemoglobin 12.5 g/dL (14.0-18.0) Hematocrit 37.1 % (42-52) Mean Corpuscular Volume 96.4 fL (80-100) Mean Corpuscular Hemoglobin 32.5 pg (25-34) Mean Corpuscular Hemoglobin Concent 33.7 g/dl (32-36) Platelet Count 96 K/uL (130-400) Mean Platelet Volume 9.3 fL (7.4-10.4) RDW Standard Deviation 47.9 fL (36.4-46.3) RDW Coefficient of Variation 13.6 % (11.5-14.5) Neutrophils % (Manual) 64.4 % Lymphocytes % (Manual) 21.7 % Monocytes % (Manual) 10.4 % Basophils % (Manual) 1.7 % (0-2) Metamyelocytes % 0.9 % Myelocytes % 0.9 % Neutrophils # (Manual) 6.52 K/uL (1.4-6.5) Total Absolute Neutrophils 6.52 K/uL (1.4-6.5) Lymphocytes # (Manual) 2.20 K/uL (1.2-3.4) Total Absolute Lymphocytes 2.20 K/uL (1.2-3.4) Monocytes # (Manual) 1.05 K/uL (0.11-0.59) Basophils # (Manual) 0.17 K/uL (0-0.2) Metamyelocytes # 0.09 K/uL (0-0) Myelocytes # 0.09 K/uL (0-0) Smudge Cells PRESENT Platelet Estimate DECREASED Red Blood Cell Morphology Unremarkable Prothrombin Time 10.7 SECONDS (9.0-12.0) Prothromb Time International Ratio 1.0 (0.9-1.1) Activated Partial Thromboplast Time 29.9 SECONDS (21.0-31.0) Partial Thromboplastin Ratio 1.2 Anion Gap 9.0 mmol/L (3-11) Est Creatinine Clear Calc Drug Dose 73.2 ml/min Estimated GFR () 84.3 Estimated GFR (Non- 72.7 BUN/Creatinine Ratio 23.1 (10-20) Calcium Level 8.2 mg/dl (8.5-10.1) Magnesium Level 1.8 mg/dl (1.8-2.4) Total Bilirubin 0.9 mg/dl (0.2-1) Direct Bilirubin 0.2 mg/dl (0-0.2) Aspartate Amino Transf (AST/SGOT) 22 U/L (15-37) Alanine Aminotransferase (ALT/SGPT) 21 U/L (12-78) Alkaline Phosphatase 67 U/L (45-117) Troponin I 0.789 ng/ml (0-0.045) Total Protein 6.5 gm/dl (6.4-8.2) Albumin 3.6 gm/dl (3.4-5.0) Lipase 192 U/L (73-393) Thyroid Stimulating Hormone (TSH) 1.790 uIu/ml (0.300-4.500) Bedside Lactic Acid Venous 2.46 mmol/L (0.90-1.70) Laboratory results reviewed by me Medications Administered Medications (Trade) Dose Ordered Sig/Robert Route Start Time Stop Time Status Last Admin Dose Admin Sodium Chloride 1,000 ml @ 125 mls/hr Q8H STAT IV 11/04/16 18:19 11/04/16 20:49 DC 11/04/16 18:31 125 MLS/HR Sodium Chloride 1,000 ml @ 999 mls/hr Q1H1M STAT IV 11/04/16 18:19 11/04/16 19:19 DC 11/04/16 18:32 999 MLS/HR Vancomycin HCl/ Sodium Chloride (Vancomycin Inj/ Nss 500ml) 546 ml @ 200 mls/hr ONE STAT IV 11/04/16 18:19 11/04/16 21:02 DC 11/04/16 18:42 200 MLS/HR Piperacillin Sod/ Tazobactam Sod (Zosyn Iv) 4.5 gm NOW STAT IV 11/04/16 18:19 11/04/16 18:24 DC 11/04/16 18:32 4.5 GM Acetaminophen 325 mg 325 mg NOW STAT PO 11/04/16 18:26 11/04/16 18:27 DC 11/04/16 18:33 325 MG Sodium Chloride (Nss 1000ml) 1,000 ml @ 999 mls/hr Q1H1M STAT IV 11/04/16 19:20 11/04/16 20:20 DC 11/04/16 19:20 999 MLS/HR ECG Indication: tachycardia Rate (beats per minute): 119 Rhythm: atrial fibrillation (with RVR) Findings: RBBB, no acute ischemic change, left axis deviation ED Course 1811: The patient was evaluated in room A1. A complete history and physical exam was performed. 1818: Ordered Zosyn IV 4.5 gm IV, Vancomycin HCl 2300 mg/Sodium Chloride 546 ml @ 200 mls/hr IV, Sodium Chloride 1000 ml @ 999 mls/hr IV, Sodium Chloride 1000 ml @ 125 mls/hr IV. 1825: Ordered Tylenol Tab 325 mg PO. 1827: Pharmacy reviewed prior sensitivities and MRSA was noted. 1907: I reevaluated the patient and he is feeling better and breathing easier. I discussed the exam findings thus far with him and I discussed the treatment plan. He and his family verbalized complete understanding and agreement. He is going to be evaluated for further treatment. 1919: Ordered Sodium Chloride 1000 ml @ 999 mls/hr IV. 1922: I discussed the patient's case with Elida Inman. She is going to evaluate the patient for further treatment. Medical Decision Medication Reconciliation: I attest that I have personally reviewed the patient' s current medication list Triage Nursing notes reviewed. The patient's presentation and history were concerning for possible sepsis. Etiologies such as urinary tract infection, sepsis, bacteremia, viral syndrome, pneumonia, meningitis, as well as others were entertained. The patient was evaluated. Prior records were reviewed. I did discuss the case with one of his treating physicians, Dr. Sage, from earlier today. The patient was given IV Rocephin and placed on Omnicef for UTI. He worsened at home. EMS was summoned. The patient was febrile. He was tachycardic and was having some difficulty breathing. He was given multiple DuoNeb, Tylenol, and fluids by my medical command. He was doing somewhat better. Additional fluids were ordered. A sepsis alert was initiated from the prehospital standpoint. ECG did reveal a mild rapid atrial fibrillation. His CBC was unremarkable compared to prior. Chemistry panel was unchanged. The patient was experiencing a moderate elevation of his lactate. Troponin was mildly elevated. He was given IV Zosyn and IV vancomycin. Prior cultures were reviewed from the last several years and he was noted to have MRSA in his urine. The vancomycin should cover this well. I did discuss this with the patient and family. His chest x-ray was unremarkable. The patient was reassessed and was feeling better. Consultation was made with internal medicine. He was evaluated in the Emergency Room for further management. The chart was completed utilizing [employer] Speech voice recognition software. Grammatical errors, random word insertions, pronoun errors, and incomplete sentences are an occasional consequence of this system due to software limitations, ambient noise, and hardware issues. Any formal questions or concerns about the content, text, or information contained within the body of this dictation should be directly addressed to the physician for clarification. Consults Time Called: 1917 Consulting Physician: Elida Inman Returned Call: 1922 I discussed the patient's case with Elida Inman. She is going to evaluate the patient for further treatment. Impression Primary Impression: Sepsis Additional Impressions: UTI (urinary tract infection) Elevated troponin Critical Care I have personally spent greater than 30 minutes of critical care time in the direct management of this patient. This includes bedside care, interpretation of diagnostic studies, and testing, discussion with consultants, patient, and family members, and other required patient management activities. This 30 minutes is in excess of all separately billable procedures. Scribe Attestation The scribe's documentation has been prepared under my direction and personally reviewed by me in its entirety. I confirm that the note above accurately reflects all work, treatment, procedures, and medical decision making performed by me. Departure Information Dispostion Being Evaluated By Hospitalist Arash Mann M.D. (PCP) Problem Qualifiers
[2016-11-04] MEDS: ACETAMINOPHEN 325 MG TAB PO PRN (21:29)
--- NOTE | 2016-11-04 21:32 | Pharmacy Progress Note ---
Pharmacy Antibiotic Consult Date of Service: November 04, 2016. Pharmacy Dosing Scope Pharmacy is consulted to initiate vancomycin and Zosyn IV dosing therapy, order appropriate labs and adjust drug dose/frequency. Subjective The patient is a 86 year old male admitted on November 04, 2016 at 19:29. Objective Height (Feet): 5 Height (Inches): 10.00 Weight (Kilograms): 118.100 Lab Results (24hrs): Test 11/04/16 18:15 11/04/16 18:25 11/04/16 19:18 11/04/16 20:30 Bedside Prothrombin Time INR 1.1 (0.9-1.1) Bedside Glucose 127 mg/dl (70-99) White Blood Count 10.13 K/uL (4.8-10.8) Red Blood Count 3.85 M/uL (4.7-6.1) Hemoglobin 12.5 g/dL (14.0-18.0) Hematocrit 37.1 % (42-52) Mean Corpuscular Volume 96.4 fL (80-100) Mean Corpuscular Hemoglobin 32.5 pg (25-34) Mean Corpuscular Hemoglobin Concent 33.7 g/dl (32-36) Platelet Count 96 K/uL (130-400) Mean Platelet Volume 9.3 fL (7.4-10.4) RDW Standard Deviation 47.9 fL (36.4-46.3) RDW Coefficient of Variation 13.6 % (11.5-14.5) Neutrophils % (Manual) 64.4 % Lymphocytes % (Manual) 21.7 % Monocytes % (Manual) 10.4 % Basophils % (Manual) 1.7 % (0-2) Metamyelocytes % 0.9 % Myelocytes % 0.9 % Neutrophils # (Manual) 6.52 K/uL (1.4-6.5) Total Absolute Neutrophils 6.52 K/uL (1.4-6.5) Lymphocytes # (Manual) 2.20 K/uL (1.2-3.4) Total Absolute Lymphocytes 2.20 K/uL (1.2-3.4) Monocytes # (Manual) 1.05 K/uL (0.11-0.59) Basophils # (Manual) 0.17 K/uL (0-0.2) Metamyelocytes # 0.09 K/uL (0-0) Myelocytes # 0.09 K/uL (0-0) Smudge Cells PRESENT Platelet Estimate DECREASED Red Blood Cell Morphology Unremarkable Prothrombin Time 10.7 SECONDS (9.0-12.0) Prothromb Time International Ratio 1.0 (0.9-1.1) Activated Partial Thromboplast Time 29.9 SECONDS (21.0-31.0) Partial Thromboplastin Ratio 1.2 Sodium Level 141 mmol/L (136-145) Potassium Level 4.1 mmol/L (3.5-5.1) Chloride Level 105 mmol/L (98-107) Carbon Dioxide Level 27 mmol/L (21-32) Anion Gap 9.0 mmol/L (3-11) Blood Urea Nitrogen 22 mg/dl (7-18) Creatinine 0.95 mg/dl (0.60-1.40) Est Creatinine Clear Calc Drug Dose 73.2 ml/min Estimated GFR () 84.3 Estimated GFR (Non- 72.7 BUN/Creatinine Ratio 23.1 (10-20) Random Glucose 145 mg/dl (70-99) Calcium Level 8.2 mg/dl (8.5-10.1) Magnesium Level 1.8 mg/dl (1.8-2.4) Total Bilirubin 0.9 mg/dl (0.2-1) Direct Bilirubin 0.2 mg/dl (0-0.2) Aspartate Amino Transf (AST/SGOT) 22 U/L (15-37) Alanine Aminotransferase (ALT/SGPT) 21 U/L (12-78) Alkaline Phosphatase 67 U/L (45-117) Troponin I 0.789 ng/ml (0-0.045) Total Protein 6.5 gm/dl (6.4-8.2) Albumin 3.6 gm/dl (3.4-5.0) Lipase 192 U/L (73-393) Thyroid Stimulating Hormone (TSH) 1.790 uIu/ml (0.300-4.500) Bedside Lactic Acid Venous 2.46 mmol/L (0.90-1.70) Lactic Acid Level 1.6 mmol/L (0.4-2.0) Micro Results: 11/04 blood x3 pending 11/04 urine pending Recent Pertinent Medications Item Value Date Time Piperacillin Sod/ 120 ml @ 30 mls/hr 11/05/16 0000 Tazobactam Sod Q8@0000,0800,1600/IV 4.5 gm/Dextrose Vancomycin HCl 270 ml @ 125 mls/hr 11/04/16 2100 1000 mg/Sodium Q12/IV Chloride Vancomycin HCl 546 ml @ 200 mls/hr 11/04/16 1819 2300 mg/Sodium ONE STAT/IV 11/04/16 1842 Chloride Piperacillin Sod/ 4.5 gm 11/04/16 1819 Tazobactam Sod NOW STAT/IV 11/04/16 1832 (Zosyn Iv) Assessment & Plan Loading dose: vancomycin 2300 mg IV X 1 dose (~19.5 mg/kg) then: vancomycin 1500 mg IV every 12 hours. Goal peak level estimate: between 25- 40 mcg/mL. Goal trough level estimate: between 15-20 mcg/mL. (may be able to adjust when culture results are available) Trough has been ordered for: 11/06/16 before 0600 dose. Zosyn 4.5 Gm loading dose, then 4.5 Gm (infused over 4 hr) q8h for CrCl greater than 20 ml/min. Pharmacy will continue to follow and will adjust dose/frequency as necessary. Thank you
[2016-11-04] MEDS ORDERED: HEPARIN SOD 5000 UNIT/0.5 ML CARP SQ SCH (22:00)
[2016-11-04] MEDS ORDERED: MoRPHine SULFATE 2 MG/ML CARP IV STA (22:19)
[2016-11-04] MEDS ORDERED: MoRPHine SULFATE 2 MG/ML CARP ONE (22:27)
[2016-11-04] MEDS ORDERED: MoRPHine SULFATE 2 MG/ML CARP IV PRN (22:30)
[2016-11-04] MEDS ORDERED: HEPARIN DRIP~STOP ORDER STA (22:43)
[2016-11-04 22:50] VITALS: BP 115/62; PULSE 86; TEMP 37.2; O2SAT 96
[2016-11-04] MEDS: PIPERACILL/TAZOBAC IV 4.5 GM in DEXTROSE 5% 100ML 100 ML IV SCH (23:54)
[2016-11-05] VITALS (8 sets, daily range): BP systolic 128–143; BP diastolic 63–76; PULSE 69–81; TEMP 36.5–38; O2SAT 91–96
[2016-11-05 02:49] LABS: CKMB/CK RATIO 2.7 (0-3.0)
[2016-11-05 05:50] LABS: HEMATOCRIT 33.7 % (42-52); MEAN CELL VOLUME 97.4 fL (80-100); MEAN CORPUSCULAR HEMOGLOBIN 31.2 pg (25-34); RED BLOOD COUNT 3.46 M/uL (4.7-6.1); WHITE BLOOD COUNT 6.66 K/uL (4.8-10.8)
[2016-11-05 05:51] LABS: MEAN PLATELET VOLUME 9.4 fL (7.4-10.4); PLATELET COUNT 89 K/uL (130-400)
[2016-11-05] MEDS: LEVOTHYROXINE 88 MCG TAB PO SCH (05:53)
[2016-11-05 05:55] LABS: PARTIAL THROMBOPLASTIN RATIO 1.1
[2016-11-05] MEDS ORDERED: VANCOMYCIN INJ 1,500 MG in SODIUM CHLORIDE 0.9% 500ML 500 ML IV SCH (06:00)
[2016-11-05 06:23] LABS: CALCIUM 7.7 mg/dl (8.5-10.1); CREATININE 0.91 mg/dl (0.60-1.40); POTASSIUM 3.8 mmol/L (3.5-5.1)
[2016-11-05 06:30] LABS: ALB/GLOB RATIO 1.2 (0.9-2); CHOLESTEROL/HDL RATIO 2.8
--- NOTE | 2016-11-05 07:31 | DIAGNOSTIC IMAGING REPORT ---
BILATERAL LOWER EXTREMITY VENOUS DOPPLER HISTORY: pain and swelling of bilat legs COMPARISON STUDY: None. FINDINGS: There is normal compressibility, flow, and augmentation within the bilateral lower extremity deep venous systems. IMPRESSION: No DVT within the right or left lower extremity. Electronically signed by: Aly Manzano M.D. 11/05/2016 7:30 AM Dictated Date/Time: 11/05/2016 7:30 AM
[2016-11-05] MEDS ORDERED: PERFLUTREN LIPID MICROSPHERE (DEFINITY) IV ONE (07:57)
[2016-11-05] MEDS: PIPERACILL/TAZOBAC IV 4.5 GM in DEXTROSE 5% 100ML 100 ML IV SCH ×3 (08:06→23:22)
[2016-11-05] MEDS: METOPROLOL TARTRATE 25 MG TAB PO SCH ×2 (08:08→20:41)
[2016-11-05] MEDS: CEROVITE ADV FORMULA TAB PO SCH ×2 (08:08→20:46)
--- NOTE | 2016-11-05 08:44 | DIAGNOSTIC IMAGING REPORT ---
CHEST ONE VIEW PORTABLE CLINICAL HISTORY: Congestive heart failure. COMPARISON STUDY: Chest radiograph November 04, 2016. FINDINGS: A right internal jugular [id number] remains in place. There is no pneumothorax or pleural effusion. The patient is rotated. Cardiac size is at the upper limits of normal. Patient rotation likely accounts for mediastinal widening. There is no radiographic evidence of pulmonary edema. Right infrahilar opacity likely reflects normal vessels or atelectasis. IMPRESSION: 1. No radiographic evidence of pulmonary edema. 2. Right infrahilar opacity likely reflects normal vessels or atelectasis. Electronically signed by: Kirby Garcia M.D. 11/05/2016 8:43 AM Dictated Date/Time: 11/05/2016 8:41 AM
[2016-11-05] MEDS ORDERED: GLUCOSE 10 TABS/TUBE PO PRN (08:45)
[2016-11-05] MEDS ORDERED: GLUCOSE 40% GEL 15 GM TUBE PO PRN (08:45)
[2016-11-05] MEDS ORDERED: GLUCAGON FOR INJ 1 MG VIAL SQ PRN (08:45)
[2016-11-05] MEDS ORDERED: DEXTROSE 50% 50 ML SYR IV PRN (08:45)
[2016-11-05] MEDS ORDERED: ASPIRIN 81 MG ECTAB PO SCH (09:00)
[2016-11-05] MEDS: NICOTINE 21 MG/24 HR TDSY TD SCH ×2 (09:17→09:18)
--- NOTE | 2016-11-05 09:57 | Cardiology Consultation ---
Cardiology Consultation Date of Consultation: November 05, 2016 Requesting Physician: Sarbjit Attending Power And Recovery Supervisor: Minerva (Get Hernandez PA-C) History of Present Illness History of Present Illness: Mr. Padron is an 86 year old male who presented to the [facility] ER on 11/04/2016 with multiple complaints including acute on chronic dyspnea, nausea, GI upset, generalized weakness. He was felt to have an acute bronchitis and a recurrent urinary tract infection. He was given 650 mg of PO Tylenol, IVF's, 1 gram of Rocephin, and a Duoneb treatment with improvement of his symptoms. His Monson catheter was change. Omnicef was prescribed on discharge from the ER. EKG revealed Sinus rhythm with premature supraventricular complexes and a right bundle branch block. Symptoms progressed upon returning home including fever, rigors, progressive weakness, increased lethargy. He returned to the ER and was found to be febrile, hypotension, and tachycardic. Lactic acid was 2.4. In the ER he was given Zosyn, Vancomycin, 1 L IVF's, and Tylenol. EKG is suggestive of atrial fibrillation with a rapid ventricular response versus sinus tachycardia with frequent premature atrial complexes with a right bundle branch block pattern. Patient admitted with a working diagnosis of urosepsis, acute complicated bronchitis, and possible atrial fibrillation which was the reason for cardiology consultation. At the time of my evaluation, the patient is resting comfortably with multiple family members present at the bedside. He denies chest pain. He denies palpitations. He notes, on questioning, increased shortness of breath and a cough productive of thick green sputum. He notes his was recently diagnosed with acute bronchitis. He denies abdominal bloating, orthopnea, PND, lower extremity peripheral edema, or abrupt weight change. No lightheadedness or dizziness. No near syncope or syncope. 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 Chart history of iron deficiency. History of GI bleed, unknown etiology Hypertension Dyslipidemia Hypothyroidism. Type II diabetes mellitus Generalized osteoarthritis Obesity Chart history of colon carcinoma Removal of the prostate, TURP Right 3rd toe amputation Multiple eye injections, followed by Dr. Broderick. Bilateral cataract extraction Social History: Nonsmoker. Chronic smokeless tobacco user, currently 1 can per day. He notes chewing x 73 years. Alcohol: Remote heavy use, minimal over the past 20 years. No illegal drug use. Retired after 43 years of service at the [employer] in [facility] [place]. Lives in [place] with his family. . Family History: Father with stroke age 63. Mother with stomach cancer. Brother with NM age 58. Sister with metastatic ? colon cancer. (Get Hernandez PA-C) Review Of Systems General: + Fever. + Chills. + Sweats. Head: No headache. Cardiovascular: Denies chest pain or chest discomfort. No palpitations. One pillow orthopnea without PND. + MCQUEEN. Pulmonary: + Cough productive of green sputum. + wheeze. No hemoptysis. Gastrointestinal: + Nausea. No vomiting. No diarrhea. Skin: No rash. Musculoskeletal: Diffuse arthritis. Neurological: Denies history of TIA, CVA, or seizures Complete review of systems is as stated above, negative, or noncontributory. (Get Hernandez PA-C) Allergies Coded Allergies: Baclofen (Verified Allergy, Intermediate, HIVES, 11/04/16) Sulfamethoxazole w/Trimethoprim (Verified Allergy, Mild, rash per PCP records , 11/04/16) Medications Reported Home Medications Medications Dose Route/Sig Max Daily Dose Days Date Category Dose Instructions Miralax (Polyethylene Glycol 3350) 1 Pow Pow 17 Gm PO DAILY 11/04/16 Reported Voltaren (Diclofenac Sodium) 75 Mg Tabcr 75 Mg PO DAILY PRN 11/04/16 Reported WITH FOOD Omnicef (Cefdinir) 300 Mg Cap 300 Mg PO Q12H 10 11/04/16 Rx Lidocaine/Prilocaine (Lidocaine-Prilocaine) 1 Cre Cre 1 Appln TOP UD PRN 11/04/16 Reported Applies to heels in evning as needed Ocuvite Preservision (Multivitamins/Minerals) 1 Tab Tab 1 Tab PO BID 09/12/15 Reported Ecotrin Or Generic (Aspirin) 81 Mg Tab 81 Mg PO QAM 03/29/12 Reported Zocor (Simvastatin) 40 Mg Tab 40 Mg PO HS 03/29/12 Reported Synthroid (Levothyroxine Sodium) 88 Mcg Tab 2 Tab PO QAM 03/29/12 Reported (Get Hernandez PA-C) Physical Exam Vital Signs (Last 8hrs): Last 8 Hrs Date Time Temp Pulse Resp B/P Pulse Ox O2 Delivery O2 Flow Rate FiO2 11/05/16 08:03 37.1 69 22 128/69 93 11/05/16 08:00 Nasal Cannula 11/05/16 04:28 37.0 75 20 131/70 91 Room Air 11/05/16 04:00 Nasal Cannula 2.0 General Appearance: Alert and Oriented x3. Tachypneic. Acutely ill. Chronically ill. Head: Normocephalic Atraumatic. Eyes: PER, EOMI, conjunctiva and sclera pale. Neck: Supple. Transmitted systolic murmur. No overt JVD. Respiratory: Diminished throughout. Decreased breath sounds. Diffuse rhonchi. Diffuse expiratory wheezing. Cardiovascular: Regular at 76 bpm. Grade II/ systolic ejection murmur. Normal S1. Decreased S2. No diastolic murmur. PMI was not palpated. Chest: Right subclavian A-port. Abdomen: Obese. +BS. Soft. Nontender. Extremities: Mild edema. No clubbing. No cyanosis. Distal pulses were 0/4 bilaterally. Neuro: No focal deficits. Psychiatric: Normal affect. (Get Hernandez PA-C) Data Last 24 Hours Test 11/04/16 18:15 11/04/16 18:25 11/04/16 19:18 11/04/16 20:30 Bedside Prothrombin Time INR 1.1 Bedside Glucose 127 mg/dl White Blood Count 10.13 K/uL Red Blood Count 3.85 M/uL Hemoglobin 12.5 g/dL Hematocrit 37.1 % Mean Corpuscular Volume 96.4 fL Mean Corpuscular Hemoglobin 32.5 pg Mean Corpuscular Hemoglobin Concent 33.7 g/dl Platelet Count 96 K/uL Mean Platelet Volume 9.3 fL RDW Standard Deviation 47.9 fL RDW Coefficient of Variation 13.6 % Neutrophils % (Manual) 64.4 % Lymphocytes % (Manual) 21.7 % Monocytes % (Manual) 10.4 % Basophils % (Manual) 1.7 % Metamyelocytes % 0.9 % Myelocytes % 0.9 % Neutrophils # (Manual) 6.52 K/uL Total Absolute Neutrophils 6.52 K/uL Lymphocytes # (Manual) 2.20 K/uL Total Absolute Lymphocytes 2.20 K/uL Monocytes # (Manual) 1.05 K/uL Basophils # (Manual) 0.17 K/uL Metamyelocytes # 0.09 K/uL Myelocytes # 0.09 K/uL Smudge Cells PRESENT Platelet Estimate DECREASED Red Blood Cell Morphology Unremarkable Prothrombin Time 10.7 SECONDS Prothromb Time International Ratio 1.0 Activated Partial Thromboplast Time 29.9 SECONDS Partial Thromboplastin Ratio 1.2 Sodium Level 141 mmol/L Potassium Level 4.1 mmol/L Chloride Level 105 mmol/L Carbon Dioxide Level 27 mmol/L Anion Gap 9.0 mmol/L Blood Urea Nitrogen 22 mg/dl Creatinine 0.95 mg/dl Est Creatinine Clear Calc Drug Dose 73.2 ml/min Estimated GFR () 84.3 Estimated GFR (Non- 72.7 BUN/Creatinine Ratio 23.1 Random Glucose 145 mg/dl Calcium Level 8.2 mg/dl Magnesium Level 1.8 mg/dl Total Bilirubin 0.9 mg/dl Direct Bilirubin 0.2 mg/dl Aspartate Amino Transf (AST/SGOT) 22 U/L Alanine Aminotransferase (ALT/SGPT) 21 U/L Alkaline Phosphatase 67 U/L Troponin I 0.789 ng/ml Total Protein 6.5 gm/dl Albumin 3.6 gm/dl Lipase 192 U/L Thyroid Stimulating Hormone (TSH) 1.790 uIu/ml Bedside Lactic Acid Venous 2.46 mmol/L Lactic Acid Level 1.6 mmol/L Test 11/05/16 02:14 11/05/16 04:55 11/05/16 07:44 Total Creatine Kinase 82 U/L Creatine Kinase MB 2.2 ng/ml Creatine Kinase MB Ratio 2.7 Troponin I 0.525 ng/ml White Blood Count 6.66 K/uL Red Blood Count 3.46 M/uL Hemoglobin 10.8 g/dL Hematocrit 33.7 % Mean Corpuscular Volume 97.4 fL Mean Corpuscular Hemoglobin 31.2 pg Mean Corpuscular Hemoglobin Concent 32.0 g/dl RDW Standard Deviation 49.0 fL RDW Coefficient of Variation 13.7 % Platelet Count 89 K/uL Mean Platelet Volume 9.4 fL Activated Partial Thromboplast Time 28.8 SECONDS Partial Thromboplastin Ratio 1.1 Sodium Level 143 mmol/L Potassium Level 3.8 mmol/L Chloride Level 109 mmol/L Carbon Dioxide Level 28 mmol/L Anion Gap 6.0 mmol/L Blood Urea Nitrogen 18 mg/dl Creatinine 0.91 mg/dl Est Creatinine Clear Calc Drug Dose 74.9 ml/min Estimated GFR () 88.8 Estimated GFR (Non- 76.6 BUN/Creatinine Ratio 20.0 Random Glucose 149 mg/dl Lactic Acid Level 0.9 mmol/L Calcium Level 7.7 mg/dl Magnesium Level 2.0 mg/dl Total Bilirubin 1.0 mg/dl Aspartate Amino Transf (AST/SGOT) 20 U/L Alanine Aminotransferase (ALT/SGPT) 17 U/L Alkaline Phosphatase 52 U/L Total Protein 5.6 gm/dl Albumin 3.1 gm/dl Globulin 2.5 gm/dl Albumin/Globulin Ratio 1.2 Triglycerides Level 86 mg/dl Cholesterol Level 99 mg/dl HDL Cholesterol 36 mg/dl LDL Cholesterol, Calculated 46 mg/dl VLDL Cholesterol, Calculated 17 mg/dl Cholesterol/HDL Ratio 2.8 Bedside Glucose 137 mg/dl Admission CXR, as per Dr. Cuadra, revealed cardiomegaly with no acute cardiopulmonary abnormality. CXR this morning showed no evidence of pulmonary edema as per Dr. Garcia. Right infrahilar opacity observed. Venous duplex was negative for DVT bilaterally as per Dr. Manzano. EKG this morning reveals sinus rhythm with premature atrial complexes and a right bundle branch block, left anterior fascicular block. Telemetry: Currently sinus at 64 bpm. Frequent atrial greater than ventricular ectopy. ? short paroxysms of atrial fibrillation with a rapid ventricular response. No significant bradycardia. (Get Hernandez, JIMBOC) Assessment & Plan 86 year old male admitted the working diagnoses of urosepsis, acute complicated bronchitis, and possible asymptomatic paroxysmal atrial fibrillation with a rapid ventricular response. Paroxysmal atrial fibrillation Likely secondary to the acute illness, urosepsis Asymptomatic although he will not likely tolerate prolonged episodes of atrial fibrillation with his end stage aortic valve disease. Patient with multiple contraindications to anticoagulation Add low dose Toprol XL, 12.5 mg/day, with caution Continue ASA 81 mg/day Elevated troponin concentration, asymptomatic demand ischemia from the critical illness, tachycardia, and severe valvular heart disease. History of critical aortic stenosis Echocardiogram ordered on admission; ? reduction in LV systolic function Patient and family request remains for ongoing medical management, avoiding opening a Lecanto's Box. DVT Prophylaxis: SCD and teds. (Get Hernandez PA-C) CARDIOLOGY ATTENDING ADDENDUM: The patient was seen and personally examined. Agree with Get Hernandez PA-C's findings and plans as documented above. Patient in the past has not wanted aggressive treatment for . He is not a candidate for any intervention. (Masood Palma, DO)
--- NOTE | 2016-11-05 10:14 | Medical Consult ---
Consultation Date of Consultation: November 05, 2016. Attending Physician: Katia Schaffer M.D. Reason for Consultation: Sepsis/UTI History of Present Illness Patient is an 86-year-old female who presented to the emergency department with complaints of fever, weakness, and altered mental status. The patient has history of chronic indwelling catheter for the last 6 months and had previously had recurrent urinary tract infection, most recently with MRSA prior to initiation of his Monson catheter. The patient does also have history of large cell lymphoma currently in remission. The patient was seen in the emergency department on 11/04/2016 at which time he had a urine culture completed and blood cultures drawn. Urine culture is growing E coli with sensitivities pending. Blood cultures are pending. The patient was sent home on p.o. cefdinir, but his symptoms worsened. He was then brought to the emergency department for re-evaluation. The patient did have a chest x-ray on admission which showed cardiomegaly with known cardiopulmonary abnormality. He also a venous Doppler of the bilateral lower extremities which showed no evidence of DVT. The patient's white blood cell count on admission was 10.13. His platelet count was mildly decreased 96. He did a troponin of 0.789 on admission. His creatinine was 0.95, and point of care lactic was 2.46. He was placed empirically on IV Zosyn and vancomycin. Past Medical/Surgical History Medical Problems: (1) Acute bronchitis Status: Acute (2) Bronchitis Status: Acute (3) Confusion Status: Acute (4) Elevated troponin Status: Acute (5) Urinary tract infection associated with indwelling urethralcatheter Status: Acute (6) UTI (urinary tract infection) Status: Acute (7) UTI (urinary tract infection) Status: Acute (8) UTI (urinary tract infection) Status: Acute Medical Problems: (1) Aortic stenosis, severe (2) Chronic anemia (3) Dyslipidemia (4) History of colon cancer (5) Hypertension (6) Lymphoma (7) Obesity (8) Sepsis Surgical Problems: (1) H/O cataract removal with insertion of prosthetic lens (2) History of amputation of lesser toe of right foot (3) S/P TURP (status post transurethral resection of prostate) Family History Omitted due to age Noncontributory Social History Smoking Status: Former Smoker Drug Use: none Marital Status: Housing Status: lives with significant other Occupation Status: retired Allergies Coded Allergies: Baclofen (Verified Allergy, Intermediate, HIVES, 11/04/16) Sulfamethoxazole w/Trimethoprim (Verified Allergy, Mild, rash per PCP records , 11/04/16) Home Medications Reported Home Medications Medications Dose Route/Sig Max Daily Dose Days Date Category Dose Instructions Miralax (Polyethylene Glycol 3350) 1 Pow Pow 17 Gm PO DAILY 11/04/16 Reported Voltaren (Diclofenac Sodium) 75 Mg Tabcr 75 Mg PO DAILY PRN 11/04/16 Reported WITH FOOD Omnicef (Cefdinir) 300 Mg Cap 300 Mg PO Q12H 10 11/04/16 Rx Lidocaine/Prilocaine (Lidocaine-Prilocaine) 1 Cre Cre 1 Appln TOP UD PRN 11/04/16 Reported Applies to heels in evning as needed Ocuvite Preservision (Multivitamins/Minerals) 1 Tab Tab 1 Tab PO BID 09/12/15 Reported Ecotrin Or Generic (Aspirin) 81 Mg Tab 81 Mg PO QAM 03/29/12 Reported Zocor (Simvastatin) 40 Mg Tab 40 Mg PO HS 03/29/12 Reported Synthroid (Levothyroxine Sodium) 88 Mcg Tab 2 Tab PO QAM 03/29/12 Reported Current Inpatient Medications Current Inpatient Medications Medications (Trade) Dose Ordered Sig/Robert Route Start Time Stop Time Status Last Admin Dose Admin Acetaminophen (Tylenol Tab) 650 mg Q4H PRN PO 11/04/16 20:00 12/04/16 19:59 11/04/16 21:29 650 MG Al Hydrox/Mg Hydrox/Simethicone (Maalox Max Susp) 15 ml Q4H PRN PO 11/04/16 20:00 12/04/16 19:59 Magnesium Hydroxide (Milk Of Magnesia Susp) 30 ml Q12H PRN PO 11/04/16 20:00 12/04/16 19:59 Zolpidem Tartrate (Ambien Tab) 5 mg HSZ PRN PO 11/04/16 20:00 12/04/16 19:59 Ondansetron HCl (Zofran Inj) 4 mg Q6H PRN IV 11/04/16 20:00 12/04/16 19:59 Nitroglycerin (Nitrostat Tab) 0.4 mg UD PRN SL 11/04/16 20:00 12/04/16 19:59 Polyethylene 17 gm 17 gm DAILY PRN PO 11/04/16 20:00 12/04/16 19:59 Vancomycin HCl 1500 mg/Sodium Chloride 530 ml @ 200 mls/hr Q12@0600,1800 IV 11/05/16 06:00 11/14/16 17:59 11/05/16 05:52 200 MLS/HR Piperacillin Sod/ Tazobactam Sod/ Dextrose (Zosyn Iv/D5 100ml) 120 ml @ 30 mls/hr Q8@0000,0800,1600 IV 11/05/16 00:00 11/14/16 15:59 11/05/16 08:06 30 MLS/HR Vancomycin HCl (Consult) 1 ea UD N/A 11/04/16 20:18 12/04/16 20:17 Piperacillin Sod/ Tazobactam Sod (Consult) 1 ea UD N/A 11/04/16 20:13 12/04/16 20:12 Aspirin (Ecotrin Tab) 81 mg QAM PO 11/05/16 09:00 12/05/16 08:59 11/05/16 08:08 81 MG Levothyroxine Sodium (Synthroid Tab) 176 mcg DAILYBB PO 11/05/16 06:00 12/05/16 05:59 11/05/16 05:53 176 MCG Multivitamins/ Minerals (Multivitamin W/ Minerals Tab) 1 tab BID PO 11/04/16 21:00 12/04/16 20:59 11/05/16 08:08 1 TAB Simvastatin (Zocor Tab) 40 mg HS PO 11/04/16 21:00 12/04/16 20:59 Metoprolol Tartrate (Lopressor Tab) 12.5 mg BID PO 11/04/16 21:00 11/05/16 22:00 11/05/16 08:08 12.5 MG Morphine Sulfate (MoRPHine SULFATE INJ) 0.5 mg Q8H PRN IV 11/04/16 22:30 11/18/16 22:29 11/05/16 01:37 0.5 MG Heparin Sodium (Porcine) (Heparin 100 Unit/ml 5ml Flush) 5 ml PRN PRN IV 11/04/16 23:30 12/04/16 23:29 Nicotine (Nicoderm Cq 21MG Patch) 1 patch QAM TD 11/05/16 08:45 12/05/16 08:44 11/05/16 09:18 1 PATCH Miscellaneous (Remove Nicoderm Patch) 1 ea HS N/A 11/05/16 21:00 12/05/16 20:59 Insulin Human Regular (novoLIN-R) SLIDING SCALE IF C... ACHS SC 11/05/16 11:00 12/05/16 10:59 Glucose (Glucose 40% Gel) 15-30 GRAMS 15 GRAMS... UD PRN PO 11/05/16 08:45 12/05/16 08:44 Glucose (Glucose Chew Tab) 4-8 Tablets 4 Tabl... UD PRN PO 11/05/16 08:45 12/05/16 08:44 Dextrose (Dextrose 50% 50ML Syringe) 25-50ML OF 50% DW IV FOR... UD PRN IV 11/05/16 08:45 12/05/16 08:44 Glucagon (Glucagon Inj) 1 mg UD PRN SQ 11/05/16 08:45 12/05/16 08:44 Metoprolol Succinate (Toprol Xl Tab) 12.5 mg QAM PO 11/06/16 09:00 12/06/16 08:59 UNV Review of Systems Constitutional: + weakness, + fatigue, No fever, No chills, No sweats Eyes: No worsening of vision ENT: No hearing loss Respiratory: + cough, + shortness of breath Cardiovascular: No chest pain, No palpitations Abdomen: No pain, No nausea, No vomiting, No diarrhea Musculoskeletal: No joint pain Genitourinary - Male: + problem reported (indwelling Monson x 6 months, hx MRSA UTI prior to Monson placement) Neurologic: No numbness/tingling Integumentary: No rash, No itch, No new/changing skin lesions Physical Exam Date Time Temp Pulse Resp B/P Pulse Ox O2 Delivery O2 Flow Rate FiO2 11/05/16 08:03 37.1 69 22 128/69 93 11/05/16 08:00 Nasal Cannula 11/05/16 04:28 37.0 75 20 131/70 91 Room Air 11/05/16 04:00 Nasal Cannula 2.0 11/05/16 00:00 Nasal Cannula 2.0 11/04/16 22:50 37.2 86 24 115/62 96 Nasal Cannula 2.0 11/04/16 20:36 37.6 97 20 112/62 97 Nasal Cannula 2.0 11/04/16 19:27 37.6 108 20 11/04/16 18:37 115 17 109/59 96 Nasal Cannula 2.0 11/04/16 18:30 95 Nasal Cannula 2.0 11/04/16 18:29 93 Room Air 11/04/16 18:27 93 Room Air 11/04/16 18:25 39.3 115 24 114/59 93 Room Air 11/04/16 18:20 120 General Appearance: no apparent distress, + obese Head: normocephalic, atraumatic Eyes: normal inspection, sclerae normal ENT: hearing grossly normal Neck: supple, trachea midline Respiratory/Chest: no respiratory distress, no accessory muscle use, + pertinent finding (coarse breath sounds throughout, mild wheezing) Cardiovascular: + pertinent finding (regular rate) Abdomen/GI: normal bowel sounds, non tender, soft Back: normal inspection, no CVA tenderness Extremities/Musculoskelatal: normal inspection, + swelling (1+ pitting edema b/ l LE) Neurologic/Psych: alert, normal mood/affect Skin: normal color, warm/dry, no rash Laboratory Results CHEST ONE VIEW PORTABLE CLINICAL HISTORY: Congestive heart failure. COMPARISON STUDY: Chest radiograph November 04, 2016. FINDINGS: A right internal jugular Thkwod-[id number]-Ccrk remains in place. There is no pneumothorax or pleural effusion. The patient is rotated. Cardiac size is at the upper limits of normal. Patient rotation likely accounts for mediastinal widening. There is no radiographic evidence of pulmonary edema. Right infrahilar opacity likely reflects normal vessels or atelectasis. IMPRESSION: 1. No radiographic evidence of pulmonary edema. 2. Right infrahilar opacity likely reflects normal vessels or atelectasis. Item Value Date Time Urine Culture Received 11/05/16 0800 Urine,Catheterized Pending Blood Culture Received 11/04/16 2040 Blood Pending Blood Culture Received 11/04/16 2030 Blood Pending Blood Culture Received 11/04/16 1825 Blood Pending Last 24 Hours Test 11/04/16 18:15 11/04/16 18:25 11/04/16 19:18 11/04/16 20:30 Bedside Prothrombin Time INR 1.1 Bedside Glucose 127 mg/dl White Blood Count 10.13 K/uL Red Blood Count 3.85 M/uL Hemoglobin 12.5 g/dL Hematocrit 37.1 % Mean Corpuscular Volume 96.4 fL Mean Corpuscular Hemoglobin 32.5 pg Mean Corpuscular Hemoglobin Concent 33.7 g/dl Platelet Count 96 K/uL Mean Platelet Volume 9.3 fL RDW Standard Deviation 47.9 fL RDW Coefficient of Variation 13.6 % Neutrophils % (Manual) 64.4 % Lymphocytes % (Manual) 21.7 % Monocytes % (Manual) 10.4 % Basophils % (Manual) 1.7 % Metamyelocytes % 0.9 % Myelocytes % 0.9 % Neutrophils # (Manual) 6.52 K/uL Total Absolute Neutrophils 6.52 K/uL Lymphocytes # (Manual) 2.20 K/uL Total Absolute Lymphocytes 2.20 K/uL Monocytes # (Manual) 1.05 K/uL Basophils # (Manual) 0.17 K/uL Metamyelocytes # 0.09 K/uL Myelocytes # 0.09 K/uL Smudge Cells PRESENT Platelet Estimate DECREASED Red Blood Cell Morphology Unremarkable Prothrombin Time 10.7 SECONDS Prothromb Time International Ratio 1.0 Activated Partial Thromboplast Time 29.9 SECONDS Partial Thromboplastin Ratio 1.2 Sodium Level 141 mmol/L Potassium Level 4.1 mmol/L Chloride Level 105 mmol/L Carbon Dioxide Level 27 mmol/L Anion Gap 9.0 mmol/L Blood Urea Nitrogen 22 mg/dl Creatinine 0.95 mg/dl Est Creatinine Clear Calc Drug Dose 73.2 ml/min Estimated GFR () 84.3 Estimated GFR (Non- 72.7 BUN/Creatinine Ratio 23.1 Random Glucose 145 mg/dl Calcium Level 8.2 mg/dl Magnesium Level 1.8 mg/dl Total Bilirubin 0.9 mg/dl Direct Bilirubin 0.2 mg/dl Aspartate Amino Transf (AST/SGOT) 22 U/L Alanine Aminotransferase (ALT/SGPT) 21 U/L Alkaline Phosphatase 67 U/L Troponin I 0.789 ng/ml Total Protein 6.5 gm/dl Albumin 3.6 gm/dl Lipase 192 U/L Thyroid Stimulating Hormone (TSH) 1.790 uIu/ml Bedside Lactic Acid Venous 2.46 mmol/L Lactic Acid Level 1.6 mmol/L Test 11/05/16 02:14 11/05/16 04:55 11/05/16 07:44 11/05/16 09:50 Total Creatine Kinase 82 U/L Creatine Kinase MB 2.2 ng/ml Creatine Kinase MB Ratio 2.7 Troponin I 0.525 ng/ml White Blood Count 6.66 K/uL Red Blood Count 3.46 M/uL Hemoglobin 10.8 g/dL Hematocrit 33.7 % Mean Corpuscular Volume 97.4 fL Mean Corpuscular Hemoglobin 31.2 pg Mean Corpuscular Hemoglobin Concent 32.0 g/dl RDW Standard Deviation 49.0 fL RDW Coefficient of Variation 13.7 % Platelet Count 89 K/uL Mean Platelet Volume 9.4 fL Activated Partial Thromboplast Time 28.8 SECONDS Partial Thromboplastin Ratio 1.1 Sodium Level 143 mmol/L Potassium Level 3.8 mmol/L Chloride Level 109 mmol/L Carbon Dioxide Level 28 mmol/L Anion Gap 6.0 mmol/L Blood Urea Nitrogen 18 mg/dl Creatinine 0.91 mg/dl Est Creatinine Clear Calc Drug Dose 74.9 ml/min Estimated GFR () 88.8 Estimated GFR (Non- 76.6 BUN/Creatinine Ratio 20.0 Random Glucose 149 mg/dl Lactic Acid Level 0.9 mmol/L Calcium Level 7.7 mg/dl Magnesium Level 2.0 mg/dl Total Bilirubin 1.0 mg/dl Aspartate Amino Transf (AST/SGOT) 20 U/L Alanine Aminotransferase (ALT/SGPT) 17 U/L Alkaline Phosphatase 52 U/L Total Protein 5.6 gm/dl Albumin 3.1 gm/dl Globulin 2.5 gm/dl Albumin/Globulin Ratio 1.2 Triglycerides Level 86 mg/dl Cholesterol Level 99 mg/dl HDL Cholesterol 36 mg/dl LDL Cholesterol, Calculated 46 mg/dl VLDL Cholesterol, Calculated 17 mg/dl Cholesterol/HDL Ratio 2.8 Bedside Glucose 137 mg/dl Assessment & Plan Patient with E. Coli UTI and flank pain in the setting of chronic indwelling Monson catheter and lymphoma. The patient does have history of MRSA UTI as well. E. Coli in urine culture from 11/04 is pending sensitivities. All blood cultures are pending. He is currently on IV Vancomycin and Zosyn. Will D/C Vancomycin but continue Zosyn pending culture results. We will follow. PROVIDER ADDENDUM: Patient examined and reviewed with Ms. Gerard. Agree with above assessment.
[2016-11-05] MEDS: INSULIN HUMAN REGULAR SC SCH ×3 (11:00→20:42)
[2016-11-05 11:06] LABS: CKMB/CK RATIO 2.6 (0-3.0)
--- NOTE | 2016-11-05 16:46 | ECHOCARDIOGRAM REPORT ---
*NOTICE TO RECEIVING [employer] This information is strictly Confidential and protected under [place] law. [place] law prohibits you from making any further disclosure of this information unless further disclosure is expressly permitted by the written consent of the person to whom it pertains or is authorized by law. A general authorization for the release of medical or other information is not sufficient for this purpose. Hospital accepts no responsibility if the information is made available to any other person, INCLUDING THE PATIENT. Interpretation Summary * Name: JESSI LIPSCOMB Study Date: 11/05/2016 07:37 AM BP: 128/69 mmHg * Patient Location: C.2T\S\S231\S\1 HR: 69 * : 1930 (M/d/yyy) Gender: Male Height: 70 in * Age: 86 yrs Ethnicity: [place] Weight: 260 lb * Ordering Physician: Katia Schaffer * Referring Physician: Self, Referred * Performed By: Jane Scherer RDCS * * Reason For Study: Atrial fibrillation * BSA: 2.3 m2 * The study was technically limited. * The study was technically difficult. * -- Conclusions -- * The study was technically limited. * The study was technically difficult. * Patient could not be positioned. * The aortic valve is not well visualized. * Probable severe aortic stenosis * Left ventricular systolic function is normal. * Ejection Fraction = >70 %. Procedure Details * A complete two-dimensional transthoracic echocardiogram was performed (2D, M-mode, Doppler and color flow Doppler). * The study was technically limited. * The study was technically difficult. * There were technical limitations due to patient'spoor positioning * A contrast injection of Definity was performed to improve assessment of LV function. * Contrast was injected into an intravenous site in the left arm. * One vial of Definity ultrasound contrast was diluted in normal saline to a total volume of 10 ml. A total of '2' ml of solution was administered during imaging. * Lot # [id number] of Definity utilized for procedure. * Expiration date DEC 23. * The attending nurse who injected the contrast agent was Ashley Machado RN. Left Ventricle * The left ventricle is normal in size. * Ejection Fraction = >70 %. * Left ventricular systolic function is normal. Right Ventricle * The right ventricle is grossly normal size. * The right ventricular systolic function is normal. Atria * The left atrium is not well visualized. * Right atrium not well visualized. Mitral Valve * There is severe mitral annular calcification. * Significant mitral regurgitation is absent. Aortic Valve * The aortic valve is not well visualized. * There is no significant aortic regurgitation. MMode 2D Measurements and Calculations IVSd 1.7 cm LVIDd 4.6 cm LVIDs 2.7 cm LVPWd 0.93 cm IVS/LVPW 1.8 FS 39.8 % EDV(Teich) 95.7 ml ESV(Teich) 28.2 ml EF(Teich) 70.5 % EDV(cubed) 95.3 ml ESV(cubed) 20.8 ml EF(cubed) 78.2 % LV mass(C)d 226.6 grams LV mass(C)dI 97.1 grams/m\S\2 SV(Teich) 67.5 ml SI(Teich) 28.9 ml/m\S\2 SV(cubed) 74.5 ml SI(cubed) 31.9 ml/m\S\2 LA dimension 4.7 cm asc Aorta Diam 3.3 cm LVAd ap4 32.3 cm\S\2 LVLd ap4 8.9 cm EDV(MOD-sp4) 92.5 ml EDV(sp4-el) 99.1 ml LVAs ap4 16.3 cm\S\2 LVLs ap4 7.3 cm ESV(MOD-sp4) 30.4 ml ESV(sp4-el) 30.7 ml EF(MOD-sp4) 67.1 % EF(sp4-el) 69.0 % LVAd ap2 33.5 cm\S\2 LVLd ap2 8.8 cm EDV(MOD-sp2) 102.7 ml EDV(sp2-el) 108.0 ml LVAs ap2 16.4 cm\S\2 LVLs ap2 7.8 cm ESV(MOD-sp2) 28.3 ml ESV(sp2-el) 29.1 ml EF(MOD-sp2) 72.4 % EF(sp2-el) 73.1 % LVLd %diff -0.81 % EDV(MOD-bp) 98.4 ml LVLs %diff 6.2 % ESV(MOD-bp) 29.0 ml EF(MOD-bp) 70.5 % SV(MOD-sp4) 62.1 ml SI(MOD-sp4) 26.6 ml/m\S\2 SV(MOD-sp2) 74.4 ml SI(MOD-sp2) 31.9 ml/m\S\2 SV(MOD-bp) 69.4 ml SI(MOD-bp) 29.7 ml/m\S\2 SV(sp4-el) 68.4 ml SI(sp4-el) 29.3 ml/m\S\2 SV(sp2-el) 78.9 ml SI(sp2-el) 33.8 ml/m\S\2 Doppler Measurements and Calculations MV E max joshua 147.5 cm/sec MV A max joshua 161.2 cm/sec MV E/A 0.91 MV V2 max 169.7 cm/sec MV max PG 11.5 mmHg MV V2 mean 104.5 cm/sec MV mean PG 5.0 mmHg MV V2 VTI 58.1 cm MV dec time 0.36 sec Ao V2 max 103.2 cm/sec Ao max PG 4.3 mmHg Ao max PG (full) 0.74 mmHg LV V1 max PG 3.5 mmHg LV V1 max 93.8 cm/sec PA V2 max 86.9 cm/sec PA max PG 3.0 mmHg PA acc slope 404.1 cm/sec\S\2 PA acc time 0.18 sec TR max joshua 169.7 cm/sec PA pr(Accel) -1.81 mmHg
[2016-11-05] MEDS ORDERED: FUROSEMIDE INJ 20 MG in SYRINGE 0 ML IV ONE (17:00)
--- NOTE | 2016-11-05 17:00 | Progress Note ---
Internal Med Progress Note Date of Service: November 05, 2016. Provider Documentation: SUBJECTIVE: developed epistaxis multiple episodes today resolved with nasal clamps and pressure apply Aspirin D/osito pt was on IV heparin briefly yesterday for Afib RVR -was discontinued has coarse cough , + rales more awake and alert today insisting on going home now does not like the hospital bed , does not like to stay in hospital any more pt is counselled -he was unable to stand up earlier today with PT still have infection in urine requiring IV antibiotics agreeable to stay one more night high fall risk ; with possible sun downing effect in the evening will order 1: 1 observation for pt' safety -as he was trying to get out of bed multiple times with out assistance OBJECTIVE: Vital Signs-as noted below Exam: General-elderly gentleman , anxious , wants to be " out of here " Eyes-sclera non icteric ENT-dried blood present on nasal nares and nasal bridge Neck-no JVD noted Lungs-+ rales at base Heart-irregular Abdomen-soft, non tender Extremities-+ 1 bilat lower ext edema Neuro-anxious with some element of delirium, awake and alert , no focal neurological deficit Lab data as noted below. ASSESSMENT & PLAN: SEPSIS DUE TO UTI : -meets criteria -presented with fever , tachycardia , elevated lactic acid -possible source UTI , -complicated UTI due to chronic indwelling catheter -urine culture in 11/04/16 : E . coli -D/c Vancomycin -cont IV Zosyn for gram negative coverage ID consult appreciated CRITICAL AORTIC STENOSIS : ECHO ON 04/2015 : severely calcified aortic valve /critical aortic stenosis , V max of 4.8 m/sec mild to moderate aortic regurgitation pt was found not a surgical candidate due to multiple co morbidities ( pt and family also declined aggressive measures ) cont to assess vol status and monitor of I's /0's very high risk for Flash pulmonary edema with vol overload due to critical repeat ECHO : * The study was technically limited. * The study was technically difficult. * Patient could not be positioned. * The aortic valve is not well visualized. * Probable severe aortic stenosis * Left ventricular systolic function is normal. * Ejection Fraction = >70 %. pt follows with Cardiology Dr Palma -appreciate input supportive management for end stage valvular heart disease will order Lasix 20 mg IV X1 dose for possible pulm edema as pt received IVF yesterday , getting IV abx repeat Cxray in AM AFIB RVR -NEW DX : due to infection sepsis /critical pt denies on any chest pain , palpitation or SOB monitor in Tele cont Low dose Lopressor 12.5 mg BID with holding parameters not a candidate for anticoagulation -thrombocytopenia , prior hx of anemia , GI bleed /now has ongoing epistaxis repeat ECHO as above appreciate cardiology eval THROMBOCYTOPENIA ; possible causing epistaxis Aspirin D/osito avoid all form of antiplatelets and anticoagulation follow CBC daily avoid antiplatelets , anticoagulation MILD ELEVATION OF TROPONIN : possible due to demand ischemia /severe pt denies of any symptom of chest pain ECHO -no wall motion abnormality per Cardiology conservative /medical management HX OF LARGE CELL LYMPHOMA : -in remission -completed chemo few yrs back -blood cultures ordered for presence of A port /sepsis -Pt follows at [facility] -discussed with pt and family DVT PROPHYLAXIS : moderate to high risk sub q heparin not ordered for low platelet count /ongoing epistaxis SCD and teds ambulate as tolerated PT/OT DISPOSITION : lives at home with PT/OT EVAL APPRECIATED pt presents with significant weakness, deconditioning, affecting pt's safety unable to do ADL's , not safe to return home recommend in patient Rehab Family in agreement for rehab for short term Social service following for discharge planning -aware for need for SNF /short term rehab pt is reluctant to go to rehab , insists on going home as soon as possible will continue to have D/w patient for rehab once medically stable cont PT/OT while in hospital Medicine follow up with Dr Gomez Vital Signs: Date Time Temp Pulse Resp B/P Pulse Ox O2 Delivery O2 Flow Rate FiO2 11/05/16 19:57 38.0 70 20 143/76 94 Room Air 11/05/16 16:00 Nasal Cannula 11/05/16 15:45 36.8 81 20 129/67 96 11/05/16 12:11 36.5 70 20 134/63 94 11/05/16 12:00 Nasal Cannula 11/05/16 10:33 94 11/05/16 08:03 37.1 69 22 128/69 93 11/05/16 08:00 Nasal Cannula 11/05/16 04:28 37.0 75 20 131/70 91 Room Air 11/05/16 04:00 Nasal Cannula 2.0 11/05/16 00:00 Nasal Cannula 2.0 11/04/16 22:50 37.2 86 24 115/62 96 Nasal Cannula 2.0 11/04/16 20:36 37.6 97 20 112/62 97 Nasal Cannula 2.0 Lab Results: Results Past 24 Hours Test 11/04/16 20:30 11/05/16 02:14 11/05/16 04:55 11/05/16 07:44 Range/Units Lactic Acid Level 1.6 0.9 0.4-2.0 mmol/L Total Creatine Kinase 82 39-308 U/L Creatine Kinase MB 2.2 0.5-3.6 ng/ml Creatine Kinase MB Ratio 2.7 0-3.0 Troponin I 0.525 0-0.045 ng/ml White Blood Count 6.66 4.8-10.8 K/uL Red Blood Count 3.46 4.7-6.1 M/uL Hemoglobin 10.8 14.0-18.0 g/dL Hematocrit 33.7 42-52 % Mean Corpuscular Volume 97.4 80-100 fL Mean Corpuscular Hemoglobin 31.2 25-34 pg Mean Corpuscular Hemoglobin Concent 32.0 32-36 g/dl RDW Standard Deviation 49.0 36.4-46.3 fL RDW Coefficient of Variation 13.7 11.5-14.5 % Platelet Count 89 130-400 K/uL Mean Platelet Volume 9.4 7.4-10.4 fL Activated Partial Thromboplast Time 28.8 21.0-31.0 SECONDS Partial Thromboplastin Ratio 1.1 Sodium Level 143 136-145 mmol/L Potassium Level 3.8 3.5-5.1 mmol/L Chloride Level 109 98-107 mmol/L Carbon Dioxide Level 28 21-32 mmol/L Anion Gap 6.0 3-11 mmol/L Blood Urea Nitrogen 18 7-18 mg/dl Creatinine 0.91 0.60-1.40 mg/dl Est Creatinine Clear Calc Drug Dose 74.9 ml/min Estimated GFR () 88.8 Estimated GFR (Non- 76.6 BUN/Creatinine Ratio 20.0 10-20 Random Glucose 149 70-99 mg/dl Calcium Level 7.7 8.5-10.1 mg/dl Magnesium Level 2.0 1.8-2.4 mg/dl Total Bilirubin 1.0 0.2-1 mg/dl Aspartate Amino Transf (AST/SGOT) 20 15-37 U/L Alanine Aminotransferase (ALT/SGPT) 17 12-78 U/L Alkaline Phosphatase 52 45-117 U/L Total Protein 5.6 6.4-8.2 gm/dl Albumin 3.1 3.4-5.0 gm/dl Globulin 2.5 2.5-4.0 gm/dl Albumin/Globulin Ratio 1.2 0.9-2 Triglycerides Level 86 0-150 mg/dl Cholesterol Level 99 0-200 mg/dl HDL Cholesterol 36 mg/dl LDL Cholesterol, Calculated 46 mg/dl VLDL Cholesterol, Calculated 17 mg/dl Cholesterol/HDL Ratio 2.8 Bedside Glucose 137 70-99 mg/dl Test 11/05/16 10:00 11/05/16 11:14 11/05/16 16:40 Range/Units Total Creatine Kinase 99 39-308 U/L Creatine Kinase MB 2.6 0.5-3.6 ng/ml Creatine Kinase MB Ratio 2.6 0-3.0 Troponin I 0.380 0-0.045 ng/ml Bedside Glucose 138 103 70-99 mg/dl Microbiology Results 11/04/16 Blood Culture, Received Pending 11/04/16 Blood Culture, Received Pending 11/05/16 MRSA DNA Surveillance Screen - Final, Complete Specimen Negative for MRSA by DNA Probe 11/05/16 Urine Culture, Received Pending
[2016-11-05] MEDS ORDERED: SODIUM CHLORIDE 0.65% NA SOLN 45 ML (OCEAN) ONE (17:18)
[2016-11-05] MEDS ORDERED: LORAZEPAM 0.5 MG TAB PO PRN (18:45)
[2016-11-05] MEDS: ACETAMINOPHEN 325 MG TAB PO PRN (19:46)
[2016-11-05] MEDS: LORAZEPAM 0.5 MG TAB PO PRN ×2 (19:47→23:49)
[2016-11-05] MEDS: SIMVASTATIN 40 MG TAB PO SCH (20:42)
[2016-11-06] VITALS (7 sets, daily range): BP systolic 123–167; BP diastolic 72–90; PULSE 62–77; TEMP 36.7–37.6; O2SAT 92–95
[2016-11-06] MEDS ORDERED: VANCOMYCIN TROUGH SCH (05:30)
[2016-11-06] MEDS: LEVOTHYROXINE 88 MCG TAB PO SCH (05:36)
[2016-11-06 05:58] LABS: HEMATOCRIT 34.1 % (42-52); MEAN CELL VOLUME 98.3 fL (80-100); MEAN CORPUSCULAR HEMOGLOBIN 31.7 pg (25-34); MEAN CORPUSCULAR HGB CONC 32.3 g/dl (32-36); RED BLOOD COUNT 3.47 M/uL (4.7-6.1); WHITE BLOOD COUNT 6.34 K/uL (4.8-10.8)
[2016-11-06 05:59] LABS: MEAN PLATELET VOLUME 9.4 fL (7.4-10.4); PLATELET COUNT 81 K/uL (130-400)
[2016-11-06 06:41] LABS: BUN/CREATININE RATIO 16.2 (10-20); CALCIUM 8.4 mg/dl (8.5-10.1); CREATININE 0.98 mg/dl (0.60-1.40); POTASSIUM 3.8 mmol/L (3.5-5.1)
[2016-11-06] MEDS: INSULIN HUMAN REGULAR SC SCH ×4 (07:00→20:41)
[2016-11-06] MEDS: CEROVITE ADV FORMULA TAB PO SCH ×2 (07:28→20:35)
[2016-11-06] MEDS: METOPROLOL SUCC 25MG EXT REL TAB PO SCH (07:28)
[2016-11-06] MEDS: NICOTINE 21 MG/24 HR TDSY TD SCH (07:29)
[2016-11-06] MEDS: PIPERACILL/TAZOBAC IV 4.5 GM in DEXTROSE 5% 100ML 100 ML IV SCH (07:33)
--- NOTE | 2016-11-06 08:06 | DIAGNOSTIC IMAGING REPORT ---
SINGLE VIEW CHEST CLINICAL HISTORY: CHF. FINDINGS: An AP, portable, upright chest radiograph is compared to study performed by the same day 11/05/2016 and correlated with chest CT dated 03/30/2012.. The examination is degraded by portable technique, large body habitus, and patient rotation. A right internal jugular central venous infusion port is unchanged in position. The heart is enlarged and there is atherosclerotic calcification of the thoracic aorta. There is prominence of the central pulmonary vasculature. Chronic interstitial thickening is again noted. No lower pleural effusion or focal airspace consolidation is identified. Linear atelectasis is seen at the lung bases. No pneumothorax is seen. The skeletal structures are osteopenic. The bony thorax is grossly intact. IMPRESSION: 1. Cardiomegaly with prominence of the central pulmonary vasculature. Cortical clinically for evidence of mild congestive failure. 2. No airspace consolidation or large pleural effusion is identified. Electronically signed by: Nathan Cuadra M.D. 11/06/2016 8:05 AM Dictated Date/Time: 11/06/2016 8:03 AM
[2016-11-06] MEDS ORDERED: RISPERIDONE 0.5 MG TAB PO PRN (09:15)
--- NOTE | 2016-11-06 09:26 | Progress Note ---
Internal Med Progress Note Date of Service: Nov 06, 2016. Provider Documentation: SUBJECTIVE: irritated and confused today got very agitated /combative early Am after getting 0.5 mg PO Ativan ( was ordered PRN for anxiety ) no episode of epistaxis remains in rate controlled Afib on monitor pt found pulling off his clothes , pulling at monitor leads wants to go home ANH pt is counselled again , that he is still weak , unable to stand up on his own his elderly not be able to help him if he falls at home pt says -he is willing to go to rehab if his tells him so OBJECTIVE: Vital Signs-as noted below Exam: General-elderly gentleman , confused , Eyes-sclera non icteric ENT-NAD , no evidence of epistaxis Neck-no JVD noted Lungs-improved auscultation today , no rales or wheeze noted Heart-irregular Abdomen-soft, non tender Extremities-+ 1 bilat lower ext edema Neuro-anxious / delirium/confusion , awake and alert , no focal neurological deficit Lab data as noted below. ASSESSMENT & PLAN: SEPSIS DUE TO UTI : -meets criteria -presented with fever , tachycardia , elevated lactic acid -possible source UTI , -complicated UTI due to chronic indwelling catheter -urine culture in 11/04/16 : E . coli -montez sensitive -will D/c Zosyn Abx changed to PO Levaquin ID consult appreciated CRITICAL AORTIC STENOSIS : ECHO ON 04/2015 : severely calcified aortic valve /critical aortic stenosis , V max of 4.8 m/sec mild to moderate aortic regurgitation pt was found not a surgical candidate due to multiple co morbidities ( pt and family also declined aggressive measures ) cont to assess vol status and monitor of I's /0's very high risk for Flash pulmonary edema with vol overload due to critical repeat ECHO : * The study was technically limited. * The study was technically difficult. * Patient could not be positioned. * The aortic valve is not well visualized. * Probable severe aortic stenosis * Left ventricular systolic function is normal. * Ejection Fraction = >70 %. pt follows with Cardiology Dr Palma -appreciate input supportive management for end stage valvular heart disease given Lasix 20 mg IV X1 dose yesterday-with adequate diuresis AFIB RVR -NEW DX : due to infection sepsis /critical pt denies on any chest pain , palpitation or SOB remains in rate controlled Afib not a candidate for anticoagulation -thrombocytopenia , prior hx of anemia , GI bleed / epistaxis repeat ECHO as above appreciate cardiology eval started on Toprol XL 12.5 mg daily DELIRIUM /CONFUSION : developing confusion /agitation worsened at night ( sun downing ) symptom was worse with Ativan PRN will D/C Ativan , avoid BDZ -precipitating rebound agitation /combativeness ordered for Risperdal 0.5 mg BID PRN THROMBOCYTOPENIA ; possible causing epistaxis avoid all form of antiplatelets and anticoagulation follow CBC daily will resume Aspirin tomorrow if no further episode of epistaxis MILD ELEVATION OF TROPONIN : possible due to demand ischemia /severe pt denies of any symptom of chest pain ECHO -no wall motion abnormality per Cardiology conservative /medical management 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 FULL CODE -discussed with pt and family DVT PROPHYLAXIS : moderate to high risk sub q heparin not ordered for low platelet count /ongoing epistaxis SCD and teds ambulate as tolerated PT/OT DISPOSITION : lives at home with PT/OT EVAL APPRECIATED pt presents with significant weakness, deconditioning, affecting pt's safety unable to do ADL's , not safe to return home recommend in patient Rehab Family in agreement for rehab for short term Social service following for discharge planning -aware for need for SNF /short term rehab cont PT/OT while in hospital Medicine follow up with Dr Gomez Vital Signs: Date Time Temp Pulse Resp B/P (MAP) Pulse Ox O2 Delivery O2 Flow Rate FiO2 11/06/16 08:00 37.6 77 22 150/82 (104) 93 11/06/16 08:00 Room Air 11/06/16 04:00 Room Air 11/06/16 03:50 37.1 73 24 158/82 (107) 93 Room Air 11/05/16 23:57 Room Air 11/05/16 23:13 37.3 69 22 134/68 (90) 92 Room Air 11/05/16 20:44 37.3 11/05/16 20:00 Room Air 11/05/16 19:57 38.0 70 20 143/76 (98) 94 Room Air 11/05/16 16:00 Nasal Cannula 11/05/16 15:45 36.8 81 20 129/67 (87) 96 11/05/16 12:11 36.5 70 20 134/63 (86) 94 11/05/16 12:00 Nasal Cannula 11/05/16 10:33 94 Lab Results: Results Past 24 Hours Test 11/05/16 10:00 11/05/16 11:14 11/05/16 16:40 11/05/16 20:16 Range/Units Total Creatine Kinase 99 39-308 U/L Creatine Kinase MB 2.6 0.5-3.6 ng/ml Creatine Kinase MB Ratio 2.6 0-3.0 Troponin I 0.380 0-0.045 ng/ml Bedside Glucose 138 103 138 70-99 mg/dl Test 11/06/16 04:43 Range/Units White Blood Count 6.34 4.8-10.8 K/uL Red Blood Count 3.47 4.7-6.1 M/uL Hemoglobin 11.0 14.0-18.0 g/dL Hematocrit 34.1 42-52 % Mean Corpuscular Volume 98.3 80-100 fL Mean Corpuscular Hemoglobin 31.7 25-34 pg Mean Corpuscular Hemoglobin Concent 32.3 32-36 g/dl RDW Standard Deviation 49.1 36.4-46.3 fL RDW Coefficient of Variation 13.7 11.5-14.5 % Platelet Count 81 130-400 K/uL Mean Platelet Volume 9.4 7.4-10.4 fL Sodium Level 143 136-145 mmol/L Potassium Level 3.8 3.5-5.1 mmol/L Chloride Level 107 98-107 mmol/L Carbon Dioxide Level 30 21-32 mmol/L Anion Gap 6.0 3-11 mmol/L Blood Urea Nitrogen 16 7-18 mg/dl Creatinine 0.98 0.60-1.40 mg/dl Est Creatinine Clear Calc Drug Dose 69.0 ml/min Estimated GFR () 81.2 Estimated GFR (Non- 70.0 BUN/Creatinine Ratio 16.2 10-20 Random Glucose 134 70-99 mg/dl Calcium Level 8.4 8.5-10.1 mg/dl Microbiology Results 11/05/16 MRSA DNA Surveillance Screen - Final, Complete Specimen Negative for MRSA by DNA Probe
--- NOTE | 2016-11-06 09:55 | Cardiology Follow-Up ---
Subjective General Date of Service: Nov 06, 2016. Chief Complaint: Pt evaluation today including: conversation w/ patient, physical exam, chart review, lab review, review of studies, review of inpatient medication list History of Present Illness Patient seen and examined. Confused. Sitter at bedside. Denies chest pain. No palpitations. November 05, 2016 TTE Interpretation Summary ([facility], Dr. Palma): The study was technically limited. The study was technically difficult. Patient could not be positioned. The aortic valve is not well visualized. Probable severe aortic stenosis. Left ventricular systolic function is normal. Ejection Fraction = >70 %. EKG dated and timed 06-NOV-2016 @ 06:31:13: sinus rhythm with premature supraventricular complexes and with occasional premature ventricular complexes, right bundle branch block, left anterior fascicular block. Telemetry: Sinus with atrial and ventricular ectopy. No overt atrial fibrillation observed. Allergies Coded Allergies: Baclofen (Verified Allergy, Intermediate, HIVES, 11/04/16) Sulfamethoxazole w/Trimethoprim (Verified Allergy, Mild, rash per PCP records , 11/04/16) Social History Smoking Status: Former Smoker Hx Tobacco Use In Past Year?: No Hx Alcohol Use - Type And Amou: No Hx Substance Use - Type And Am: No Problem List Medical Problems: (1) Acute bronchitis Status: Acute (2) Bronchitis Status: Acute (3) Confusion Status: Acute (4) Elevated troponin Status: Acute (5) Urinary tract infection associated with indwelling urethralcatheter Status: Acute (6) UTI (urinary tract infection) Status: Acute (7) UTI (urinary tract infection) Status: Acute (8) UTI (urinary tract infection) Status: Acute Physical Exam Vital Signs Last Vital Signs Documentation Date Time Temp Pulse Resp B/P (MAP) Pulse Ox O2 Delivery O2 Flow Rate FiO2 11/06/16 08:00 37.6 77 22 150/82 (104) 93 11/06/16 08:00 Room Air 11/05/16 04:00 2.0 Physical Exam Constitutional: General Apperance: obese Level of Distress: NAD Psychiatric: Orientation: to person, not oriented to time, not oriented to place Neck: pertinent finding (No overt JVD) Lungs: Auscultation: no rhonchi, deminished air movement, decreased breath sounds, expiratory wheezing Cardiovascular: Heart Auscultation: no rubs, II/ DAVID, irregular rate rhythm Abdomen: Bowel Sounds: normal Inspection & Palpation: soft Extremities: edema (Minimal edema) Assessment and Plan Assessment and Plan 86 year old male admitted with urosepsis, acute complicated bronchitis, possible asymptomatic paroxysmal atrial fibrillation with a rapid ventricular response. Paroxysmal atrial fibrillation Likely secondary to the acute illness, urosepsis Asymptomatic although he will not likely tolerate prolonged episodes of atrial fibrillation with his end stage aortic valve disease. Contraindications to anticoagulation and antiplatelet therapy. Low dose Toprol XL, 12.5 mg/day, added. Elevated troponin concentration, asymptomatic demand ischemia from the critical illness, tachycardia, and severe valvular heart disease. History of severe aortic stenosis Manage medically. DVT Prophylaxis: SCD and teds. Please call with any questions or concerns. CARDIOLOGY ATTENDING ADDENDUM: The patient was seen and personally examined. Agree with Get Hernandez PA-C's findings and plans as documented above. Laboratory Results Last 24 Hours Test 11/05/16 10:00 11/05/16 11:14 11/05/16 16:40 11/05/16 20:16 Total Creatine Kinase 99 U/L Creatine Kinase MB 2.6 ng/ml Creatine Kinase MB Ratio 2.6 Troponin I 0.380 ng/ml Bedside Glucose 138 mg/dl 103 mg/dl 138 mg/dl Test 11/06/16 04:43 White Blood Count 6.34 K/uL Red Blood Count 3.47 M/uL Hemoglobin 11.0 g/dL Hematocrit 34.1 % Mean Corpuscular Volume 98.3 fL Mean Corpuscular Hemoglobin 31.7 pg Mean Corpuscular Hemoglobin Concent 32.3 g/dl RDW Standard Deviation 49.1 fL RDW Coefficient of Variation 13.7 % Platelet Count 81 K/uL Mean Platelet Volume 9.4 fL Sodium Level 143 mmol/L Potassium Level 3.8 mmol/L Chloride Level 107 mmol/L Carbon Dioxide Level 30 mmol/L Anion Gap 6.0 mmol/L Blood Urea Nitrogen 16 mg/dl Creatinine 0.98 mg/dl Est Creatinine Clear Calc Drug Dose 69.0 ml/min Estimated GFR () 81.2 Estimated GFR (Non- 70.0 BUN/Creatinine Ratio 16.2 Random Glucose 134 mg/dl Calcium Level 8.4 mg/dl
--- NOTE | 2016-11-06 09:58 | Infectious Disease Progress Nt ---
Progress Note Date of Service Nov 06, 2016. Subjective Pt evaluation today including: conversation w/ patient, physical exam, chart review, lab review, review of studies, conversation w/ finance consultant (Dr. Schaffer), review of inpatient medication list Patient is slightly confused this morning. His nurses state that he was very confused this morning and is currently in a 1:1. The patient states that he is feeling better though this morning and is hoping to go home soon. When asked how his breathing is, the patient states it is "loud". He otherwise denies pain , N/V/D. WBC count today was 6.34. Creatinine was stable at 0.98. Blood cultures are showing no growth to date. Repeat urine culture is pending. Urine culture from 11/04 is growing pansensitive E. Coli. Repeat CXR showed cardiomegaly with prominence of central pulmonary vasculature but no evidence of consolidation. Additional Comments: Unreliable ROS due to slight confusion this morning. All Other Systems: Reviewed and Negative Medications Current Inpatient Medications Medications (Trade) Dose Ordered Sig/Robert Route Start Time Stop Time Status Last Admin Dose Admin Acetaminophen (Tylenol Tab) 650 mg Q4H PRN PO 11/04/16 20:00 12/04/16 19:59 11/05/16 19:46 650 MG Al Hydrox/Mg Hydrox/Simethicone (Maalox Max Susp) 15 ml Q4H PRN PO 11/04/16 20:00 12/04/16 19:59 Magnesium Hydroxide (Milk Of Magnesia Susp) 30 ml Q12H PRN PO 11/04/16 20:00 12/04/16 19:59 Zolpidem Tartrate (Ambien Tab) 5 mg HSZ PRN PO 11/04/16 20:00 12/04/16 19:59 Ondansetron HCl (Zofran Inj) 4 mg Q6H PRN IV 11/04/16 20:00 12/04/16 19:59 Nitroglycerin (Nitrostat Tab) 0.4 mg UD PRN SL 11/04/16 20:00 12/04/16 19:59 Polyethylene (Miralax Powder Packet) 17 gm DAILY PRN PO 11/04/16 20:00 12/04/16 19:59 Levothyroxine Sodium (Synthroid Tab) 176 mcg DAILYBB PO 11/05/16 06:00 12/05/16 05:59 11/06/16 05:36 176 MCG Multivitamins/ Minerals (Multivitamin W/ Minerals Tab) 1 tab BID PO 11/04/16 21:00 12/04/16 20:59 11/06/16 07:28 1 TAB Simvastatin (Zocor Tab) 40 mg HS PO 11/04/16 21:00 12/04/16 20:59 11/05/16 20:42 40 MG Morphine Sulfate (MoRPHine SULFATE INJ) 0.5 mg Q8H PRN IV 11/04/16 22:30 11/18/16 22:29 11/05/16 01:37 0.5 MG Heparin Sodium (Porcine) (Heparin 100 Unit/ml 5ml Flush) 5 ml PRN PRN IV 11/04/16 23:30 12/04/16 23:29 Nicotine (Nicoderm Cq 21MG Patch) 1 patch QAM TD 11/05/16 08:45 12/05/16 08:44 11/06/16 07:29 1 PATCH Miscellaneous (Remove Nicoderm Patch) 1 ea HS N/A 11/05/16 21:00 12/05/16 20:59 11/05/16 20:45 1 EA Insulin Human Regular (novoLIN-R) SLIDING SCALE IF C... ACHS SC 11/05/16 11:00 12/05/16 10:59 Glucose (Glucose 40% Gel) 15-30 GRAMS 15 GRAMS... UD PRN PO 11/05/16 08:45 12/05/16 08:44 Glucose (Glucose Chew Tab) 4-8 Tablets 4 Tabl... UD PRN PO 11/05/16 08:45 12/05/16 08:44 Dextrose (Dextrose 50% 50ML Syringe) 25-50ML OF 50% DW IV FOR... UD PRN IV 11/05/16 08:45 12/05/16 08:44 Glucagon (Glucagon Inj) 1 mg UD PRN SQ 11/05/16 08:45 12/05/16 08:44 Metoprolol Succinate (Toprol Xl Tab) 12.5 mg QAM PO 11/06/16 09:00 12/06/16 08:59 11/06/16 07:28 12.5 MG Risperidone (Risperdal Tab) 0.5 mg Q12 PRN PO 11/06/16 09:15 12/06/16 09:14 Levofloxacin (Levaquin Tab) 500 mg DAILY@11 PO 11/06/16 11:00 11/13/16 10:59 Objective Vital Signs Date Time Temp Pulse Resp B/P (MAP) Pulse Ox O2 Delivery O2 Flow Rate FiO2 11/06/16 08:00 37.6 77 22 150/82 (104) 93 11/06/16 08:00 Room Air 11/06/16 04:00 Room Air 11/06/16 03:50 37.1 73 24 158/82 (107) 93 Room Air 11/05/16 23:57 Room Air 11/05/16 23:13 37.3 69 22 134/68 (90) 92 Room Air 11/05/16 20:44 37.3 11/05/16 20:00 Room Air 11/05/16 19:57 38.0 70 20 143/76 (98) 94 Room Air 11/05/16 16:00 Nasal Cannula 11/05/16 15:45 36.8 81 20 129/67 (87) 96 11/05/16 12:11 36.5 70 20 134/63 (86) 94 11/05/16 12:00 Nasal Cannula 11/05/16 10:33 94 Physical Exam General Appearance: no apparent distress, + obese Eyes: normal inspection, sclerae normal ENT: hearing grossly normal Neck: supple, trachea midline Respiratory/Chest: no respiratory distress, no accessory muscle use, + wheezing (audible wheezing on exam with coarse breath sounds throughout all lobes) Cardiovascular: regular rate, rhythm, + systolic murmur Abdomen: normal bowel sounds, non tender, soft Neurologic/Psychiatric: alert, + disoriented Skin: normal color, warm/dry, no rash Laboratory Results Item Value Date Time MRSA DNA Surveillance Screen - Final Complete 11/05/16 1530 Nasal Specimen Negative for MRSA by DNA Probe Urine Culture Received 11/05/16 0800 Urine,Catheterized Pending Blood Culture - Preliminary Resulted 11/04/16 2040 Blood NO GROWTH TO DATE. Blood Culture - Preliminary Resulted 11/04/16 2030 Blood NO GROWTH TO DATE. Blood Culture - Preliminary Resulted 11/04/16 1825 Blood NO GROWTH TO DATE. SINGLE VIEW CHEST CLINICAL HISTORY: CHF. FINDINGS: An AP, portable, upright chest radiograph is compared to study performed by the same day 11/05/2016 and correlated with chest CT dated 03/30/2012.. The examination is degraded by portable technique, large body habitus, and patient rotation. A right internal jugular central venous infusion port is unchanged in position. The heart is enlarged and there is atherosclerotic calcification of the thoracic aorta. There is prominence of the central pulmonary vasculature. Chronic interstitial thickening is again noted. No lower pleural effusion or focal airspace consolidation is identified. Linear atelectasis is seen at the lung bases. No pneumothorax is seen. The skeletal structures are osteopenic. The bony thorax is grossly intact. IMPRESSION: 1. Cardiomegaly with prominence of the central pulmonary vasculature. Cortical clinically for evidence of mild congestive failure. 2. No airspace consolidation or large pleural effusion is identified. Last 24 Hours Test 11/05/16 10:00 11/05/16 11:14 11/05/16 16:40 11/05/16 20:16 Total Creatine Kinase 99 U/L Creatine Kinase MB 2.6 ng/ml Creatine Kinase MB Ratio 2.6 Troponin I 0.380 ng/ml Bedside Glucose 138 mg/dl 103 mg/dl 138 mg/dl Test 11/06/16 04:43 White Blood Count 6.34 K/uL Red Blood Count 3.47 M/uL Hemoglobin 11.0 g/dL Hematocrit 34.1 % Mean Corpuscular Volume 98.3 fL Mean Corpuscular Hemoglobin 31.7 pg Mean Corpuscular Hemoglobin Concent 32.3 g/dl RDW Standard Deviation 49.1 fL RDW Coefficient of Variation 13.7 % Platelet Count 81 K/uL Mean Platelet Volume 9.4 fL Sodium Level 143 mmol/L Potassium Level 3.8 mmol/L Chloride Level 107 mmol/L Carbon Dioxide Level 30 mmol/L Anion Gap 6.0 mmol/L Blood Urea Nitrogen 16 mg/dl Creatinine 0.98 mg/dl Est Creatinine Clear Calc Drug Dose 69.0 ml/min Estimated GFR () 81.2 Estimated GFR (Non- 70.0 BUN/Creatinine Ratio 16.2 Random Glucose 134 mg/dl Calcium Level 8.4 mg/dl Assessment and Plan Patient with E. Coli UTI in the setting of chronic indwelling Monson catheter. Urine culture is growing pansensitive E. Coli and blood cultures have shown NGTD. He is currently on IV Zosyn. Will transition to PO Levaquin 500 mg daily x 7 days. He is OK for D/C from ID perspective once medically cleared. Thanks PROVIDER ADDENDUM: Patient reviewed with Ms. Gerard. Agree with above assessment.
[2016-11-06] MEDS ORDERED: CIPROFLOXACIN 500 MG TAB PO SCH (10:00)
[2016-11-06] MEDS ORDERED: TPRSR25 PO (10:03)
[2016-11-06] MEDS ORDERED: Nicotine TD (10:03)
[2016-11-06] MEDS ORDERED: RISP0.5T4 PO (10:03)
[2016-11-06] MEDS ORDERED: LVQ500 PO (10:03)
[2016-11-06] MEDS ORDERED: MOMLX PO (10:03)
--- NOTE | 2016-11-06 10:04 | Discharge Instructions ---
Discharge Instructions Date of Service Nov 06, 2016. Admission Reason for Admission: Sepsis Discharge Discharge Diagnosis / Problem: SEPSIS /URINARY TRACT INFECTION/SEVERE AORTIC STENOSIS Discharge Goals Goal(s): Decrease discomfort, Increase independence, Diagnostic testing Activity Recommendations Activity Level: Assistance Required Therapies: Physical Therapy, Occupational Therapy . Additional Information Patient informed of condition: Yes Advance Directives: No DNR: No Level of Care: Skilled Communicable Disease: No Prognosis: Stable Monson Catheter: Yes Current Hospital Diet Patient's current hospital diet: AHA Diet (Heart Healthy) Discharge Diet Recommended Diet: AHA Diet (Heart Healthy) Fluid Restriction: 2000 ml (8 cups) Diet Texture: Dental Soft (bite-sized) Pending Studies Studies pending at discharge: no Laboratory Results Lipid Panel Test 11/05/16 04:55 Range/Units Triglycerides Level 86 0-150 mg/dl Cholesterol Level 99 0-200 mg/dl HDL Cholesterol 36 mg/dl Cholesterol/HDL Ratio 2.8 LDL Cholesterol, Calculated 46 mg/dl Medical Emergencies . Who to Call and When: Medical Emergencies: If at any time you feel your situation is an emergency, please call 911 immediately. . Non-Emergent Contact Non-Emergency issues call your: Primary Care Provider . . "Provider Documentation" section prepared by Katia Schaffer. . Core Measure Problem Core Measures: None [place] Drug Monitoring Program Search Results: no issues identified
[2016-11-06] MEDS: LEVOFLOXACIN 500 MG TAB PO SCH (10:47)
[2016-11-06] MEDS: SIMVASTATIN 40 MG TAB PO SCH (20:35)
[2016-11-07] VITALS (11 sets, daily range): BP systolic 123–147; BP diastolic 68–84; PULSE 70–89; TEMP 36.5–37.1; O2SAT 92–98
[2016-11-07 05:23] LABS: HEMATOCRIT 37.1 % (42-52); MEAN CELL VOLUME 97.9 fL (80-100); MEAN CORPUSCULAR HEMOGLOBIN 31.7 pg (25-34); MEAN CORPUSCULAR HGB CONC 32.3 g/dl (32-36); RED BLOOD COUNT 3.79 M/uL (4.7-6.1); WHITE BLOOD COUNT 6.29 K/uL (4.8-10.8)
[2016-11-07 05:33] LABS: MEAN PLATELET VOLUME 9.1 fL (7.4-10.4); PLATELET COUNT 89 K/uL (130-400)
[2016-11-07] MEDS: LEVOTHYROXINE 88 MCG TAB PO SCH (05:37)
[2016-11-07] MEDS: NICOTINE 21 MG/24 HR TDSY TD SCH (08:09)
[2016-11-07] MEDS: METOPROLOL SUCC 25MG EXT REL TAB PO SCH (08:10)
[2016-11-07] MEDS: CEROVITE ADV FORMULA TAB PO SCH ×2 (08:10→21:10)
[2016-11-07] MEDS: LEVOFLOXACIN 500 MG TAB PO SCH (08:11)
[2016-11-07] MEDS: INSULIN HUMAN REGULAR SC SCH ×4 (08:13→21:13)
[2016-11-07] MEDS ORDERED: DICLOFENAC SOD 1% GEL 100 GM TUBE EXT PRN (17:15)
[2016-11-07] MEDS ORDERED: LIDOCAINE/PRILOCAINE 2.5% EA CRM EXT PRN (17:15)
[2016-11-07] MEDS: SIMVASTATIN 40 MG TAB PO SCH (21:10)
--- NOTE | 2016-11-08 00:19 | Progress Note ---
Internal Med Progress Note Date of Service: Nov 08, 2016. Provider Documentation: SUBJECTIVE: agreeable to go to rehab referral made for [facility] family will provide transport pt sitting on chair feeling much better OBJECTIVE: Vital Signs-as noted below Exam: General-elderly gentleman , confused , Eyes-sclera non icteric ENT-NAD , no evidence of epistaxis Neck-no JVD noted Lungs-improved auscultation today , no rales or wheeze noted Heart-irregular Abdomen-soft, non tender Extremities-+ 1 bilat lower ext edema Neuro-anxious / delirium/confusion , awake and alert , no focal neurological deficit Lab data as noted below. ASSESSMENT & PLAN: SEPSIS DUE TO UTI : -meets criteria -presented with fever , tachycardia , elevated lactic acid -possible source UTI , -complicated UTI due to chronic indwelling catheter -urine culture in 11/04/16 : E . coli -montez sensitive Abx changed to PO Levaquin ID consult appreciated CRITICAL AORTIC STENOSIS : ECHO ON 04/2015 : severely calcified aortic valve /critical aortic stenosis , V max of 4.8 m/sec mild to moderate aortic regurgitation pt was found not a surgical candidate due to multiple co morbidities ( pt and family also declined aggressive measures ) cont to assess vol status and monitor of I's /0's very high risk for Flash pulmonary edema with vol overload due to critical repeat ECHO : * The study was technically limited. * The study was technically difficult. * Patient could not be positioned. * The aortic valve is not well visualized. * Probable severe aortic stenosis * Left ventricular systolic function is normal. * Ejection Fraction = >70 %. pt follows with Cardiology Dr Palma -appreciate input supportive management for end stage valvular heart disease given Lasix 20 mg IV X1 dose yesterday-with adequate diuresis AFIB RVR -NEW DX : due to infection sepsis /critical pt denies on any chest pain , palpitation or SOB remains in rate controlled Afib not a candidate for anticoagulation -thrombocytopenia , prior hx of anemia , GI bleed / epistaxis repeat ECHO as above appreciate cardiology eval started on Toprol XL 12.5 mg daily DELIRIUM /CONFUSION : developing confusion /agitation worsened at night ( sun downing ) symptom was worse with Ativan PRN will D/C Ativan , avoid BDZ -precipitating rebound agitation /combativeness ordered for Risperdal 0.5 mg BID PRN THROMBOCYTOPENIA ; possible causing epistaxis avoid all form of antiplatelets and anticoagulation follow CBC daily will resume Aspirin tomorrow if no further episode of epistaxis MILD ELEVATION OF TROPONIN : possible due to demand ischemia /severe pt denies of any symptom of chest pain ECHO -no wall motion abnormality per Cardiology conservative /medical management HX OF LARGE CELL LYMPHOMA : -in remission -completed chemo few yrs back -blood cultures ordered for presence of A port /sepsis -Pt follows at [facility] FULL CODE -discussed with pt and family DVT PROPHYLAXIS : moderate to high risk sub q heparin not ordered for low platelet count /ongoing epistaxis SCD and teds ambulate as tolerated PT/OT DISPOSITION : lives at home with PT/OT EVAL APPRECIATED pt presents with significant weakness, deconditioning, affecting pt's safety unable to do ADL's , not safe to return home recommend in patient Rehab pt is agreeable referral made to [facility] possible transfer to [facility] tomorrow if accepted family will provide transport Medicine follow up with Dr Gomez Vital Signs: Date Time Temp Pulse Resp B/P (MAP) Pulse Ox O2 Delivery O2 Flow Rate FiO2 11/07/16 23:26 36.6 85 19 136/79 (98) 94 Room Air 11/07/16 20:10 Room Air 11/07/16 18:50 36.7 89 20 139/83 (101) 94 Room Air 11/07/16 15:48 36.5 89 20 137/84 (101) 93 Room Air 11/07/16 15:20 98 Room Air 11/07/16 11:45 96 Room Air 11/07/16 11:08 36.5 79 24 135/68 (90) 96 Room Air 11/07/16 07:57 37.0 70 16 147/73 (97) 94 Room Air 11/07/16 07:45 94 Room Air 11/07/16 07:45 37.1 74 24 123/84 (97) 94 Room Air 11/07/16 04:00 92 Room Air 11/07/16 03:44 37.1 88 21 145/74 (97) 92 Room Air Lab Results: Results Past 24 Hours Test 11/07/16 04:50 11/07/16 06:48 11/07/16 11:09 11/07/16 16:32 Range/Units White Blood Count 6.29 4.8-10.8 K/uL Red Blood Count 3.79 4.7-6.1 M/uL Hemoglobin 12.0 14.0-18.0 g/dL Hematocrit 37.1 42-52 % Mean Corpuscular Volume 97.9 80-100 fL Mean Corpuscular Hemoglobin 31.7 25-34 pg Mean Corpuscular Hemoglobin Concent 32.3 32-36 g/dl RDW Standard Deviation 48.5 36.4-46.3 fL RDW Coefficient of Variation 13.5 11.5-14.5 % Platelet Count 89 130-400 K/uL Mean Platelet Volume 9.1 7.4-10.4 fL Bedside Glucose 174 208 156 70-99 mg/dl Test 11/07/16 20:35 Range/Units Bedside Glucose 238 70-99 mg/dl
[2016-11-08 04:00] VITALS: O2SAT 94
[2016-11-08 04:39] VITALS: BP 118/76; PULSE 84; TEMP 36.9; O2SAT 93
[2016-11-08] MEDS: LEVOTHYROXINE 88 MCG TAB PO SCH (05:08)
[2016-11-08 05:44] LABS: HEMATOCRIT 38.3 % (42-52); MEAN CORPUSCULAR HEMOGLOBIN 31.5 pg (25-34); MEAN CORPUSCULAR HGB CONC 32.1 g/dl (32-36); PLATELET COUNT 102 K/uL (130-400); RED BLOOD COUNT 3.91 M/uL (4.7-6.1); WHITE BLOOD COUNT 6.54 K/uL (4.8-10.8)
[2016-11-08] MEDS: INSULIN HUMAN REGULAR SC SCH ×2 (07:49→12:24)
[2016-11-08] MEDS: CEROVITE ADV FORMULA TAB PO SCH (07:50)
[2016-11-08] MEDS: NICOTINE 21 MG/24 HR TDSY TD SCH (07:53)
[2016-11-08 08:00] VITALS: BP 137/79; PULSE 87; TEMP 37; O2SAT 95
[2016-11-08] MEDS: METOPROLOL SUCC 25MG EXT REL TAB PO SCH (09:58)
[2016-11-08] MEDS: LEVOFLOXACIN 500 MG TAB PO SCH (09:58)
[2016-11-08 11:00] VITALS: BP 149/83; PULSE 87; TEMP 36.7; O2SAT 92
[2016-11-08 12:00] VITALS: O2SAT 96
[2016-11-08 12:12] VITALS: BP 149/83; PULSE 87; TEMP 36.7; O2SAT 96
--- NOTE | 2016-11-08 17:29 | Discharge Summary ---
Discharge Summary Date of Service Nov 08, 2016. Discharge Summary Admission Date: November 04, 2016 at 19:29 Discharge Date: Nov 07, 2016 Discharge Disposition: Rehab ([facility] ) Principal Diagnosis: SEPSIS /URINARY TRACT INFECTION/SEVERE AORTIC STENOSIS Secondary Diagnoses/Problems: Medical Problems: (1) Aortic stenosis, severe Permanent Comment: echo 2015: critical Status: Chronic (2) Chronic anemia Status: Chronic (3) Dyslipidemia Status: Chronic (4) History of colon cancer Status: Chronic (5) Hypertension Status: Chronic (6) Lymphoma Permanent Comment: remission Status: Resolved (7) Obesity Status: Chronic Surgical Problems: (1) H/O cataract removal with insertion of prosthetic lens Permanent Comment: R side Status: Resolved (2) History of amputation of lesser toe of right foot Permanent Comment: 3rd toe amputation 2* gangrene Status: Resolved (3) S/P TURP (status post transurethral resection of prostate) Status: Resolved Procedures: ECHO : Consultations: CARDIOLOGY ID Medication Reconciliation New Medications: Levofloxacin (Levofloxacin) 500 Mg Tab 500 MG PO DAILY for 4 Days, #4 TAB Magnesium Hydroxide (Milk of Magnesia) 30 Ml Susp 30 ML PO Q12H PRN for Constipation for 30 Days Metoprolol Succinate (Metoprolol Succinate ER) 25 Mg Tabcr 12.5 MG PO QAM for 30 Days, #15 TABS Risperidone (Risperidone) 0.5 Mg Tab 0.5 MG PO Q12 PRN for agitation , #60 TAB [Nicotine] () TDSY 1 PATCH TD QAM for 30 Days, #30 Continued Medications: Aspirin Enteric Coated (Ecotrin Or Generic) 81 Mg Tab 81 MG PO QAM, TAB Levothyroxine Sodium (Synthroid) 88 Mcg Tab 2 TAB PO QAM, TAB Lidocaine-Prilocaine (Lidocaine/Prilocaine) 1 Cre Cre 1 APPLN TOP UD PRN for Pain, #30 GM 1 Refill Applies to heels in evning as needed Ocuvite Preservision (Ocuvite Preservision) 1 Tab Tab 1 TAB PO BID, TAB Polyethylene Glycol 3350 (Miralax) 1 Pow Pow 17 GM PO DAILY, GM Simvastatin (Zocor) 40 Mg Tab 40 MG PO HS, TAB Discontinued Medications: Cefdinir (Omnicef) 300 Mg Cap 300 MG PO Q12H for 10 Days, #20 CAP Diclofenac (Voltaren) 75 Mg Tabcr 75 MG PO DAILY PRN for PRN, TAB WITH FOOD Admission Information HPI (per Admitting provider): this is a 86 yo Male with hx of chronic indwelling catheter /recurrent UTI ( last urine culture-MRSA ) , critical aortic stenosis , hx of large cell lymphoma on remission presented to ED with complain of fever , generalized weakness, worsening of mental status , lethargy history obtained form Family members -daughters , present at bedside as pt was not able to stay awake through the conversation pt as brought to ED earlier today morning for weakness, chills , concern for possible UTI as all his prior episodes had similar presentation in ED visit -UA was found to be grossly positive , had normal white count , afebrile pt was discharged home with Omnicef /Cefdinir PO , as pt returned home in few hours -started to spike fever, had chills and rigor severe weakness, need 2 person to get him up to bathroom more lethargic and sleepy Family brought pt to ED as his condition detoriated pt was found to be febrile , hypotensive , tachycardic , in rapid afib ( no prior diagnosis of arrhythmia) elevated Lactic acid 2.4 ( am level was 1.3 ) no complain of SOB , chest heaviness Physical Exam (per Admitting): General Appearance: no apparent distress Eyes: sclerae normal Respiratory/Chest: lungs clear, normal breath sounds, no respiratory distress Cardiovascular: + tachycardia, + irregularly irregular Abdomen/GI: normal bowel sounds, non tender, soft Extremities/Musculoskelatal: normal capillary refill, + pedal edema (+1 ) Neurologic/Psych: + pertinent finding (LETHERGIC , OPENS EYES TO VOICE , ABLE TO ANSWER QUESTIONS ) Hospital Course SEPSIS DUE TO UTI : -meets criteria -presented with fever , tachycardia , elevated lactic acid -possible source UTI , -complicated UTI due to chronic indwelling catheter -urine culture in 11/04/16 : E . coli -montez sensitive Abx changed to PO Levaquin ID consult appreciated CRITICAL AORTIC STENOSIS : ECHO ON 04/2015 : severely calcified aortic valve /critical aortic stenosis , V max of 4.8 m/sec mild to moderate aortic regurgitation pt was found not a surgical candidate due to multiple co morbidities ( pt and family also declined aggressive measures ) cont to assess vol status and monitor of I's /0's very high risk for Flash pulmonary edema with vol overload due to critical repeat ECHO : * The study was technically limited. * The study was technically difficult. * Patient could not be positioned. * The aortic valve is not well visualized. * Probable severe aortic stenosis * Left ventricular systolic function is normal. * Ejection Fraction = >70 %. pt follows with Cardiology Dr Palma -appreciate input supportive management for end stage valvular heart disease AFIB RVR -NEW DX : due to infection sepsis /critical pt denies on any chest pain , palpitation or SOB remains in rate controlled Afib not a candidate for anticoagulation -thrombocytopenia , prior hx of anemia , GI bleed / epistaxis repeat ECHO as above appreciate cardiology eval started on Toprol XL 12.5 mg daily DELIRIUM /CONFUSION : developing confusion /agitation worsened at night ( sun downing ) symptom was worse with Ativan PRN will D/C Ativan , avoid BDZ -precipitating rebound agitation /combativeness ordered for Risperdal 0.5 mg BID PRN THROMBOCYTOPENIA ; possible causing epistaxis avoid all form of antiplatelets and anticoagulation follow CBC daily Aspirin resumed , no further episode of nose bleed MILD ELEVATION OF TROPONIN : possible due to demand ischemia /severe pt denies of any symptom of chest pain ECHO -no wall motion abnormality per Cardiology conservative /medical management HX OF LARGE CELL LYMPHOMA : -in remission -completed chemo few yrs back -blood cultures ordered for presence of A port /sepsis -Pt follows at [facility] FULL CODE -discussed with pt and family DVT PROPHYLAXIS : moderate to high risk sub q heparin not ordered for low platelet count /ongoing epistaxis SCD and teds ambulate as tolerated PT/OT DISPOSITION : lives at home with PT/OT EVAL APPRECIATED pt presents with significant weakness, deconditioning, affecting pt's safety unable to do ADL's , not safe to return home recommend in patient Rehab pt is agreeable referral made to [facility] possible transfer to [facility] today family will provide transport Medicine follow up with Dr Gomez after discharge form Rehab Total time spent on discharge = This includes examination of the patient, discharge planning, medication reconciliation, and communication with other providers. Discharge Instructions DI: Transfer Non Acute v4 Discharge Instructions Date of Service Nov 06, 2016. Admission Reason for Admission: Sepsis Discharge Discharge Diagnosis / Problem: SEPSIS /URINARY TRACT INFECTION/SEVERE AORTIC STENOSIS Discharge Goals Goal(s): Decrease discomfort, Increase independence, Diagnostic testing Activity Recommendations Activity Level: Assistance Required Therapies: Physical Therapy, Occupational Therapy . Additional Information Patient informed of condition: Yes Advance Directives: No DNR: No Level of Care: Skilled Communicable Disease: No Prognosis: Stable Monson Catheter: Yes Current Hospital Diet Patient's current hospital diet: AHA Diet (Heart Healthy) Discharge Diet Recommended Diet: AHA Diet (Heart Healthy) Fluid Restriction: 2000 ml (8 cups) Diet Texture: Dental Soft (bite-sized) Pending Studies Studies pending at discharge: no Laboratory Results Lipid Panel Test 11/05/16 04:55 Range/Units Triglycerides Level 86 0-150 mg/dl Cholesterol Level 99 0-200 mg/dl HDL Cholesterol 36 mg/dl Cholesterol/HDL Ratio 2.8 LDL Cholesterol, Calculated 46 mg/dl Medical Emergencies . Who to Call and When: Medical Emergencies: If at any time you feel your situation is an emergency, please call 911 immediately. . Non-Emergent Contact Non-Emergency issues call your: Primary Care Provider . . "Provider Documentation" section prepared by Katia Schaffer. . Core Measure Problem Core Measures: None [place] Drug Monitoring Program Search Results: no issues identified Additional Copies To Arash Gomez M.D., Michael G.,
== END 2016-11-08 14:38 | DRG 698 ==
LOC: ENRESERVDT → ENRESERVTM → EDBD 18:00 → C.ED 18:02 → C.2T 19:29
PROVIDERS: ADMIT Hospitalist; ATTEND Hospitalist
DX: T83.518A Infection and inflammatory reaction due to other urinary catheter, initial encounter (principal); A41.9 Sepsis, unspecified organism; N39.0 Urinary tract infection, site not specified; C85.90 Non-Hodgkin lymphoma, unspecified, unspecified site; I10 Essential (primary) hypertension; D64.9 Anemia, unspecified; E78.5 Hyperlipidemia, unspecified; E03.9 Hypothyroidism, unspecified; E11.9 Type 2 diabetes mellitus without complications; I48.0 Paroxysmal atrial fibrillation; E66.9 Obesity, unspecified; R41.0 Disorientation, unspecified; D69.6 Thrombocytopenia, unspecified; Y84.6 Urinary catheterization as the cause of abnormal reaction of the patient, or of later complication, without mention of misadventure at the time of the procedure; Z85.038 Personal history of other malignant neoplasm of large intestine; J40 Bronchitis, not specified as acute or chronic; I35.0 Nonrheumatic aortic (valve) stenosis; I45.10 Unspecified right bundle-branch block; Z96.0 Presence of urogenital implants; Z87.440 Personal history of urinary (tract) infections; Z87.891 Personal history of nicotine dependence; Z89.421 Acquired absence of other right toe(s); Z79.82 Long term (current) use of aspirin

== ENCOUNTER 2017-07-18 10:10 | Inpatient (IN) | payer OTHER, MEDICARE ==
[~2017-07-18] VITALS: Ht 175.3 cm; Wt 111.1 kg
[~2017-07-18 10:10] MED LIST changes: -CEFD1CAP14 PO; -DICL-201 PO; -DICL1GEL12 TOP; -DTRSR/2 PO; +LVQ500 PO; +MOMLX PO; +Nicotine TD; +POLY335019 PO; +RISP0.5T4 PO; -SENN-65 PO; +TPRSR25 PO; -TRAZ50TA35 PO
[2017-07-18] MEDS ORDERED: ACETAMINOPHEN 325 MG TAB PO STA (10:45)
--- NOTE | 2017-07-18 11:04 | DIAGNOSTIC IMAGING REPORT ---
CHEST ONE VIEW PORTABLE CLINICAL HISTORY: 87 years-old Male presenting with shortness of breath. TECHNIQUE: Portable upright AP view of the chest was obtained. COMPARISON: 11/06/2016. FINDINGS: Right internal jugular Mediport terminates in the mid SVC. Atherosclerosis of aortic arch. Cardiac silhouette mildly enlarged, unchanged. Left atrial enlargement suspected. Pulmonary vascular prominence. Bandlike opacities at the lung bases there mildly low lung volumes. No large pleural effusion or pneumothorax. Osseous structures normal. Upper abdomen normal. IMPRESSION: 1. Mildly low lung volumes with hypoventilatory changes, including bibasilar atelectasis. 2. Cardiomegaly with volume overload. Electronically signed by: Ariel Lamb M.D. 07/18/2017 11:03 AM Dictated Date/Time: 07/18/2017 11:02 AM
[2017-07-18 11:05] LABS: BASO % 0.3 %; BASO ABS # 0.03 K/uL (0-0.2); EOS % 1.3 %; EOS ABS # 0.12 K/uL (0-0.5); HEMATOCRIT 35.7 % (42-52); HEMOGLOBIN 11.8 g/dL (14.0-18.0); IG# 0.04 K/uL (0.00-0.02); LYMPH % 16.2 %; LYMPH ABS # 1.51 K/uL (1.2-3.4); MEAN CELL VOLUME 97.3 fL (80-100); MEAN CORPUSCULAR HEMOGLOBIN 32.2 pg (25-34); MEAN CORPUSCULAR HGB CONC 33.1 g/dl (32-36); MEAN PLATELET VOLUME 9.2 fL (7.4-10.4); MONO % 9.7 %; NEUT % 72.1 %; PLATELET COUNT 111 K/uL (130-400); RED CELL DISTRIBUTION WIDTH CV 13.9 % (11.5-14.5); RED CELL DISTRIBUTION WIDTH SD 49.4 fL (36.4-46.3)
--- NOTE | 2017-07-18 11:10 | EMERGENCY ROOM VISIT NOTE ---
History Report prepared by Tory: Delilah Myles Under the Supervision of: Dr. Shireen Nelson M.D. First contact with patient: 10:48 Chief Complaint: RESPIRATORY DISTRESS Stated Complaint: ILLNESS Nursing Triage Summary: Pt presents from home via ALS for sudden respiratory distress starting this morning when he woke up. Pt woke up feeling achy, cold, dry cough, and having shortness of breath. Upon arrival, ems found sats to be 85% on room air, pt does not wear O2 at home. Febrile upon arrival, 39.1. Denies any recent sick contacts. Bilateral SURY, non pitting, pt and his verbalize this looks normal to them. Pt unable to stand and side step to top of bed because he is so weak, normally uses walker at home. Pt verbalizing upon arrival "I don't want to stay, please don't make me stay in the hospital". History of Present Illness The patient is a 87 year old male who presents to the Emergency Room with complaints of a persistent shortness of breath that began this morning. He reports that when he woke up he felt cold, had chills, body aches, and a dry cough. The patient states that he does not wear oxygen, but notes that he has a catheter in place. The patient is febrile. He denies any chest or abdominal pain. The patient denies being in any current distress. Source of History: patient Onset: this morning Position: other (global) Quality: other (shortness of breath) Timing: other (persistent) Associated Symptoms: + chills, + cough Note: Associated symptoms include: body aches and felt cold. Review of Systems See HPI for pertinent positives & negatives. A total of 10 systems reviewed and were otherwise negative. Past Medical & Surgical Medical Problems: (1) Aortic stenosis, severe (2) Chronic anemia (3) Complicated UTI (urinary tract infection) (4) Diabetes (5) Dyslipidemia (6) History of colon cancer (7) Hypertension (8) Hypoxia (9) Lymphoma (10) Obesity (11) Sepsis Surgical Problems: (1) H/O cataract removal with insertion of prosthetic lens (2) History of amputation of lesser toe of right foot (3) S/P TURP (status post transurethral resection of prostate) Family History Omitted due to age Social History Smoking Status: Never Smoker Alcohol Use: none Drug Use: none Marital Status: Housing Status: lives with significant other Occupation Status: retired Current/Historical Medications Scheduled Aspirin Enteric Coated (Ecotrin Or Generic), 81 MG PO QAM Levothyroxine Sodium (Synthroid), 2 TAB PO QAM Metoprolol Succ (Toprol Xl) (Toprol-Xl), 12.5 MG PO HS Ocuvite Preservision (Ocuvite Preservision), 1 TAB PO BID Polyethylene Glycol 3350 (Miralax), 17 GM PO DAILY Simvastatin (Zocor), 40 MG PO HS Scheduled PRN Lidocaine-Prilocaine (Lidocaine/Prilocaine), 1 APPLN TOP UD PRN for Pain Risperidone (Risperidone), 0.5 MG PO Q12 PRN for agitation Allergies Coded Allergies: Baclofen (Verified Allergy, Intermediate, HIVES, 07/18/17) Sulfamethoxazole w/Trimethoprim (Verified Allergy, Mild, rash per PCP records , 07/18/17) Physical Exam Vital Signs Date Time Temp Pulse Resp B/P (MAP) Pulse Ox O2 Delivery O2 Flow Rate FiO2 07/18/17 14:01 121/74 07/18/17 14:00 98 89 07/18/17 13:31 144/75 07/18/17 13:30 95 97 07/18/17 13:13 124/64 07/18/17 13:13 98 07/18/17 13:02 36.8 07/18/17 13:01 117/72 07/18/17 13:00 94 94 07/18/17 12:31 122/64 07/18/17 12:31 122/64 07/18/17 12:30 103 17 07/18/17 12:30 103 17 07/18/17 12:00 100 30 99/70 97 07/18/17 11:33 103 22 106/56 97 Nasal Cannula 4.0 07/18/17 11:32 106/56 07/18/17 11:30 101 27 98 07/18/17 10:54 105 07/18/17 10:35 93 Nasal Cannula 4.0 07/18/17 10:34 39.1 115 24 116/57 88 Room Air 07/18/17 10:34 88 Room Air 07/18/17 10:34 88 Room Air Physical Exam Vital signs reviewed. General: Elderly, chronically ill appearing, in no significant distress. Noted to be febrile. HEENT: No scleral icterus, PERRLA, neck supple. Atraumatic. Cardiovascular: Regular rate and rhythm, no extra sounds. Pulmonary: Rhonchi right greater than left. Nasal cannula oxygen. Abdomen: Soft, nontender, nondistended, positive bowel sounds. Genitourinary: Indwelling Monson catheter, cloudy urine. Musculoskeletal: Atraumatic, no peripheral edema. Neurologic: Patient awake alert and oriented x 3, full strength in all 4 extremities. Cranial nerves 2 through 12 grossly intact. Skin: Warm, dry, no rash Medical Decision & Procedures ER Provider Diagnostic Interpretation: Radiology results as stated below per my review and radiologist interpretation: CHEST ONE VIEW PORTABLE CLINICAL HISTORY: 87 years-old Male presenting with shortness of breath. TECHNIQUE: Portable upright AP view of the chest was obtained. COMPARISON: 11/06/2016. FINDINGS: Right internal jugular Mediport terminates in the mid SVC. Atherosclerosis of aortic arch. Cardiac silhouette mildly enlarged, unchanged. Left atrial enlargement suspected. Pulmonary vascular prominence. Bandlike opacities at the lung bases there mildly low lung volumes. No large pleural effusion or pneumothorax. Osseous structures normal. Upper abdomen normal. IMPRESSION: 1. Mildly low lung volumes with hypoventilatory changes, including bibasilar atelectasis. 2. Cardiomegaly with volume overload. Electronically signed by: Ariel Lamb M.D. 07/18/2017 11:03 AM Dictated Date/Time: 07/18/2017 11:02 AM Laboratory Results 07/18/17 10:30 Red Blood Count 3.67, Mean Corpuscular Volume 97.3, Mean Corpuscular Hemoglobin 32.2, Mean Corpuscular Hemoglobin Concent 33.1, Mean Platelet Volume 9.2, Neutrophils (%) (Auto) 72.1, Lymphocytes (%) (Auto) 16.2, Monocytes (%) (Auto) 9.7, Eosinophils (%) (Auto) 1.3, Basophils (%) (Auto) 0.3, Neutrophils # (Auto) 6.70, Lymphocytes # (Auto) 1.51, Monocytes # (Auto) 0.90, Eosinophils # (Auto) 0.12, Basophils # (Auto) 0.03 07/18/17 10:30 Test 07/18/17 10:30 07/18/17 11:19 07/18/17 11:22 07/18/17 13:05 White Blood Count 9.30 K/uL (4.8-10.8) Red Blood Count 3.67 M/uL (4.7-6.1) Hemoglobin 11.8 g/dL (14.0-18.0) Hematocrit 35.7 % (42-52) Mean Corpuscular Volume 97.3 fL (80-100) Mean Corpuscular Hemoglobin 32.2 pg (25-34) Mean Corpuscular Hemoglobin Concent 33.1 g/dl (32-36) Platelet Count 111 K/uL (130-400) Mean Platelet Volume 9.2 fL (7.4-10.4) Neutrophils (%) (Auto) 72.1 % Lymphocytes (%) (Auto) 16.2 % Monocytes (%) (Auto) 9.7 % Eosinophils (%) (Auto) 1.3 % Basophils (%) (Auto) 0.3 % Neutrophils # (Auto) 6.70 K/uL (1.4-6.5) Lymphocytes # (Auto) 1.51 K/uL (1.2-3.4) Monocytes # (Auto) 0.90 K/uL (0.11-0.59) Eosinophils # (Auto) 0.12 K/uL (0-0.5) Basophils # (Auto) 0.03 K/uL (0-0.2) RDW Standard Deviation 49.4 fL (36.4-46.3) RDW Coefficient of Variation 13.9 % (11.5-14.5) Immature Granulocyte % (Auto) 0.4 % Immature Granulocyte # (Auto) 0.04 K/uL (0.00-0.02) Anion Gap 9.0 mmol/L (3-11) Est Creatinine Clear Calc Drug Dose 58.6 ml/min Estimated GFR () 66.4 Estimated GFR (Non- 57.3 BUN/Creatinine Ratio 19.7 (10-20) Calcium Level 9.0 mg/dl (8.5-10.1) Total Bilirubin 1.4 mg/dl (0.2-1) Aspartate Amino Transf (AST/SGOT) 16 U/L (15-37) Alanine Aminotransferase (ALT/SGPT) 18 U/L (12-78) Alkaline Phosphatase 72 U/L (45-117) Total Protein 6.7 gm/dl (6.4-8.2) Albumin 3.6 gm/dl (3.4-5.0) Globulin 3.1 gm/dl (2.5-4.0) Albumin/Globulin Ratio 1.1 (0.9-2) Influenza Type A Antigen Neg for Influ A (NEG) Influenza Type B Antigen Neg for Influ B (NEG) Bedside Troponin I 0.030 ng/ml (0-0.045) Bedside Lactic Acid Venous 1.35 mmol/L (0.90-1.70) Urine Color DK YELLOW Urine Appearance TURBID (CLEAR) Urine pH 5.0 (4.5-7.5) Urine Specific [place] 1.018 (1.000-1.030) Urine Protein 1+ (NEG) Urine Glucose (UA) NEG (NEG) Urine Ketones TRACE (NEG) Urine Occult Blood 1+ (NEG) Urine Nitrite NEG (NEG) Urine Bilirubin NEG (NEG) Urine Urobilinogen NEG (NEG) Urine Leukocyte Esterase LARGE (NEG) Urine WBC (Auto) >30 /hpf (0-5) Urine RBC (Auto) 10-30 /hpf (0-4) Urine Hyaline Casts (Auto) 1-5 /lpf (0-5) Urine Epithelial Cells (Auto) >30 /lpf (0-5) Urine Bacteria (Auto) 3+ (NEG) Laboratory results per my review. Medications Administered Medications (Trade) Dose Ordered Sig/Robert Route Start Time Stop Time Status Last Admin Dose Admin Acetaminophen (Tylenol Tab) 650 mg NOW STAT PO 07/18/17 10:45 07/18/17 10:48 DC 07/18/17 11:32 650 MG Ceftriaxone Sodium (Rocephin Inj) 1 gm NOW STAT IV 07/18/17 11:52 07/18/17 11:53 DC 07/18/17 12:56 1 GM Insulin Human Regular (novoLIN-R U-100 PER UNIT) 6 units NOW STAT SC 07/18/17 13:12 07/18/17 13:13 DC 07/18/17 13:28 6 UNITS ECG Indication: SOB/dyspnea Rate (beats per minute): 105 Rhythm: sinus tachycardia Findings: PAC, RBBB, no acute ischemic change, no ectopy, other (left anterior fascicular block, repolarization abnormality) Change: Patients electrocardiogram as interpreted by me. ED Course 1043: Past medical records reviewed. The patient was evaluated in room B7. A complete history and physical examination was performed. 1045: Ordered Tylenol Tab 650mg PO. 1152: Ordered Rocephin Inh 1gm IV. 1312: Ordered Insulin Human Regular 6units. 1346: I reviewed the patient's case with TJ Tay. He will evaluate the patient for further management. 1351: I reevaluated the patient and discussed the test findings and he verbalized agreement of the treatment plan. Medical Decision Differential diagnosis: Etiologies such as infections, reactive airway disease, pneumonia, pneumothorax , COPD, CHF, cardiac ischemia, pulmonary embolism, musculoskeletal, gastrointestinal, as well as others were entertained. This patient was evaluated and appeared to be in no significant distress. The patient is wearing nasal cannula oxygen which is new for him. He is found to be febrile and given Tylenol by mouth. Blood cultures and lactate were obtained. Chest x-ray was obtained and is negative for acute infiltrate. Laboratory work reveals a normal white blood cell count. Patient does have a chronic indwelling Monson catheter. A specimen was obtained from this catheter as it was changed just several days ago according to the patient's . A new bag was applied to the catheter prior to the sample being obtained. This indicates infection. The patient was given 1 g of IV ceftriaxone. Patient was given 6 units of subcutaneous regular insulin for hyperglycemia. I did speak with the patient and his daughter regarding the plan for hospitalization. He agrees and Dr. Carlson of the hospitalist service was contacted. Medication Reconcilliation Current Medication List: was personally reviewed by me Blood Pressure Screening Patient's blood pressure: Normal blood pressure Blood pressure disposition: Did not require urgent referral Consults Time Called: 1346 Consulting Physician: TJ Tay Returned Call: 1346 I reviewed the patient's case with TJ Tay. He will evaluate the patient for further management. Impression Primary Impression: UTI (urinary tract infection) Additional Impressions: Hypoxia Fever Scribe Attestation The scribe's documentation has been prepared under my direction and personally reviewed by me in its entirety. I confirm that the note above accurately reflects all work, treatment, procedures, and medical decision making performed by me. Departure Information Dispostion Being Evaluated By Hospitalist Referrals Arash Gomez M.D. (PCP) Forms HOME CARE DOCUMENTATION FORM, IMPORTANT VISIT INFORMATION Patient Instructions Asthma - [facility], COPD - [place], Croup - [facility], [facility] Problem Qualifiers
[2017-07-18 11:21] LABS: ALBUMIN 3.6 gm/dl (3.4-5.0); CREATININE 1.15 mg/dl (0.60-1.40); POTASSIUM 4.5 mmol/L (3.5-5.1)
[2017-07-18 11:23] LABS: INFLUENZA B ANTIGEN Neg for Influ B (NEG)
[2017-07-18 11:24] LABS: TOTAL PROTEIN 6.7 gm/dl (6.4-8.2)
[2017-07-18] MEDS ORDERED: CEFTRIAXONE SOD INJ 1 GM ADDVIAL IV STA (11:52)
[2017-07-18] MEDS ORDERED: METO25TA3 PO (12:50)
[2017-07-18] MEDS ORDERED: NovoLIN-R INSULIN PER UNIT CHARGE SC STA (13:12)
[2017-07-18] MEDS ORDERED: ACETAMINOPHEN 325 MG TAB PO PRN (14:15)
[2017-07-18] MEDS ORDERED: RISPERIDONE 0.5 MG TAB PO PRN (14:15)
[2017-07-18] MEDS ORDERED: ONDANSETRON INJ 2 MG/ML 2 ML VIAL IV PRN (14:15)
[2017-07-18] MEDS ORDERED: DEXTROSE 50% 50 ML SYR IV PRN (14:15)
[2017-07-18] MEDS ORDERED: GLUCOSE 10 TABS/TUBE PO PRN (14:15)
[2017-07-18] MEDS ORDERED: GLUCOSE 40% GEL 15 GM TUBE PO PRN (14:15)
[2017-07-18] MEDS ORDERED: GLUCAGON FOR INJ 1 MG VIAL SQ PRN (14:15)
[2017-07-18] MEDS ORDERED: FURO20TA PO (15:48)
--- NOTE | 2017-07-18 15:50 | History and Physical ---
History & Physical Date & Time of Service: Jul 18, 2017 at 15:25 Chief Complaint: Illness Primary Care Physician: Arash Gomez M.D. History of Present Illness Source: patient, family, clinic records, hospital records This is an obese 87 year old male with a PMH of severe aortic stenosis, paroxysmal atrial fibrillation, hx. 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 As per patient, he felt chills, cold this morning and his told him to come to the hospital. As per patient's , he gets short of breath at night and during exertion. Patient is denying this and states he feels fine now. Denies all symptoms at this time and wants to go home. On presentation, patient noted to have dirty UA - patient states he's had issues with UTIs after having the indwelling catheter placed about 2 years prior. Also on presentation, he was noted to have hypoxia ~ 88% on RA. Denies SOB/chest pain, denies nausea/vomiting/diarrhea, denies fevers. Past Medical/Surgical History Medical Problems: (1) Aortic stenosis, severe Permanent Comment: echo 2015: critical Status: Chronic (2) Chronic anemia Status: Chronic (3) Dyslipidemia Status: Chronic (4) History of colon cancer Status: Chronic (5) Hypertension Status: Chronic (6) Lymphoma Permanent Comment: remission Status: Resolved (7) Obesity Status: Chronic Surgical Problems: (1) H/O cataract removal with insertion of prosthetic lens Permanent Comment: R side Status: Resolved (2) History of amputation of lesser toe of right foot Permanent Comment: 3rd toe amputation 2* gangrene Status: Resolved (3) S/P TURP (status post transurethral resection of prostate) Status: Resolved Family History Omitted due to age Social History Smoking Status: Never Smoker Drug Use: none Marital Status: Housing status: lives with family Occupational Status: retired Immunizations History of Influenza Vaccine: Yes History of Tetanus Vaccine?: Unknown History of Pneumococcal: Yes History of Hepatitis B Vaccine: No Multi-Drug Resistant Organisms History of MDRO: Yes Type of MDRO: MRSA Allergies Coded Allergies: Baclofen (Verified Allergy, Intermediate, HIVES, 07/18/17) Sulfamethoxazole w/Trimethoprim (Verified Allergy, Mild, rash per PCP records , 07/18/17) Home Medications Scheduled Aspirin Enteric Coated (Ecotrin Or Generic), 81 MG PO QAM Levothyroxine Sodium (Synthroid), 2 TAB PO QAM Metoprolol Succ (Toprol Xl) (Toprol-Xl), 12.5 MG PO HS Ocuvite Preservision (Ocuvite Preservision), 1 TAB PO BID Polyethylene Glycol 3350 (Miralax), 17 GM PO DAILY Simvastatin (Zocor), 40 MG PO HS Scheduled PRN Lidocaine-Prilocaine (Lidocaine/Prilocaine), 1 APPLN TOP UD PRN for Pain Risperidone (Risperidone), 0.5 MG PO Q12 PRN for agitation Review of Systems Constitutional: + fever, + chills, No weakness, No fatigue Eyes: No eye pain ENT: No hearing loss Respiratory: + dyspnea on exertion, No cough, No sputum, No wheezing, No shortness of breath, No dyspnea at rest, No hemoptysis Cardiovascular: + edema, No chest pain, No palpitations Abdomen: No pain, No nausea, No vomiting, No diarrhea, No constipation, No GI bleeding Musculoskeletal: No joint pain, No muscle pain Genitourinary - Male: No hematuria Neurologic: + balance problems (walker at baseline), No memory loss, No weakness, No numbness/tingling, No vertigo Psychiatric: No depression symptoms, No anxiety, No insomnia Endocrine: No fatigue Hematologic / Lymphatic: No abnormal bleeding/bruising Integumentary: No rash Allergic / Immunologic: No environmental allergies, No seasonal allergies Physical Exam Vital Signs Date Time Temp Pulse Resp B/P (MAP) Pulse Ox O2 Delivery O2 Flow Rate FiO2 07/18/17 14:01 121/74 07/18/17 14:00 98 89 07/18/17 13:31 144/75 07/18/17 13:30 95 97 07/18/17 13:13 124/64 07/18/17 13:13 98 07/18/17 13:02 36.8 07/18/17 13:01 117/72 07/18/17 13:00 94 94 07/18/17 12:31 122/64 07/18/17 12:31 122/64 07/18/17 12:30 103 17 07/18/17 12:30 103 17 07/18/17 12:00 100 30 99/70 97 07/18/17 11:33 103 22 106/56 97 Nasal Cannula 4.0 07/18/17 11:32 106/56 07/18/17 11:30 101 27 98 07/18/17 10:54 105 07/18/17 10:35 93 Nasal Cannula 4.0 07/18/17 10:34 39.1 115 24 116/57 88 Room Air 07/18/17 10:34 88 Room Air 07/18/17 10:34 88 Room Air General Appearance: WD/WN, no apparent distress, + obese Head: normocephalic, atraumatic Eyes: normal inspection ENT: hearing grossly normal Neck: supple Respiratory/Chest: no respiratory distress, no accessory muscle use, + rhonchi (sonorous breath sounds diffusely) Cardiovascular: + tachycardia, + systolic murmur Abdomen/GI: normal bowel sounds, non tender, soft Extremities/Musculoskelatal: + swelling (+1 pitting edema b/l LE), + pertinent finding Neurologic/Psych: machine operators II-XII nml as tested, no motor/sensory deficits, alert, normal mood/affect, oriented x 3 Skin: normal color Lymphatic: no adenopathy Diagnostics Laboratory Results Results Past 24 Hours Test 07/18/17 10:30 07/18/17 11:19 07/18/17 11:22 07/18/17 13:05 Range/Units White Blood Count 9.30 4.8-10.8 K/uL Red Blood Count 3.67 4.7-6.1 M/uL Hemoglobin 11.8 14.0-18.0 g/dL Hematocrit 35.7 42-52 % Mean Corpuscular Volume 97.3 80-100 fL Mean Corpuscular Hemoglobin 32.2 25-34 pg Mean Corpuscular Hemoglobin Concent 33.1 32-36 g/dl Platelet Count 111 130-400 K/uL Mean Platelet Volume 9.2 7.4-10.4 fL Neutrophils (%) (Auto) 72.1 % Lymphocytes (%) (Auto) 16.2 % Monocytes (%) (Auto) 9.7 % Eosinophils (%) (Auto) 1.3 % Basophils (%) (Auto) 0.3 % Neutrophils # (Auto) 6.70 1.4-6.5 K/uL Lymphocytes # (Auto) 1.51 1.2-3.4 K/uL Monocytes # (Auto) 0.90 0.11-0.59 K/uL Eosinophils # (Auto) 0.12 0-0.5 K/uL Basophils # (Auto) 0.03 0-0.2 K/uL RDW Standard Deviation 49.4 36.4-46.3 fL RDW Coefficient of Variation 13.9 11.5-14.5 % Immature Granulocyte % (Auto) 0.4 % Immature Granulocyte # (Auto) 0.04 0.00-0.02 K/uL Sodium Level 137 136-145 mmol/L Potassium Level 4.5 3.5-5.1 mmol/L Chloride Level 104 98-107 mmol/L Carbon Dioxide Level 24 21-32 mmol/L Anion Gap 9.0 3-11 mmol/L Blood Urea Nitrogen 23 7-18 mg/dl Creatinine 1.15 0.60-1.40 mg/dl Est Creatinine Clear Calc Drug Dose 58.6 ml/min Estimated GFR () 66.4 Estimated GFR (Non- 57.3 BUN/Creatinine Ratio 19.7 10-20 Random Glucose 253 70-99 mg/dl Calcium Level 9.0 8.5-10.1 mg/dl Total Bilirubin 1.4 0.2-1 mg/dl Aspartate Amino Transf (AST/SGOT) 16 15-37 U/L Alanine Aminotransferase (ALT/SGPT) 18 12-78 U/L Alkaline Phosphatase 72 45-117 U/L Total Protein 6.7 6.4-8.2 gm/dl Albumin 3.6 3.4-5.0 gm/dl Globulin 3.1 2.5-4.0 gm/dl Albumin/Globulin Ratio 1.1 0.9-2 Influenza Type A Antigen Neg for Influ A NEG Influenza Type B Antigen Neg for Influ B NEG Bedside Troponin I 0.030 0-0.045 ng/ml Bedside Lactic Acid Venous 1.35 0.90-1.70 mmol/L Urine Color DK YELLOW Urine Appearance TURBID CLEAR Urine pH 5.0 4.5-7.5 Urine Specific [place] 1.018 1.000-1.030 Urine Protein 1+ NEG Urine Glucose (UA) NEG NEG Urine Ketones TRACE NEG Urine Occult Blood 1+ NEG Urine Nitrite NEG NEG Urine Bilirubin NEG NEG Urine Urobilinogen NEG NEG Urine Leukocyte Esterase LARGE NEG Urine WBC (Auto) >30 0-5 /hpf Urine RBC (Auto) 10-30 0-4 /hpf Urine Hyaline Casts (Auto) 1-5 0-5 /lpf Urine Epithelial Cells (Auto) >30 0-5 /lpf Urine Bacteria (Auto) 3+ NEG Microbiology Results 07/18/17 Blood Culture, Received Pending 07/18/17 Blood Culture, Received Pending 07/18/17 Urine Culture, Received Pending Diagnostic Radiology CHEST ONE VIEW PORTABLE CLINICAL HISTORY: 87 years-old Male presenting with shortness of breath. TECHNIQUE: Portable upright AP view of the chest was obtained. COMPARISON: 11/06/2016. FINDINGS: Right internal jugular Mediport terminates in the mid SVC. Atherosclerosis of aortic arch. Cardiac silhouette mildly enlarged, unchanged. Left atrial enlargement suspected. Pulmonary vascular prominence. Bandlike opacities at the lung bases there mildly low lung volumes. No large pleural effusion or pneumothorax. Osseous structures normal. Upper abdomen normal. IMPRESSION: 1. Mildly low lung volumes with hypoventilatory changes, including bibasilar atelectasis. 2. Cardiomegaly with volume overload. EKG Sinus tachycardia with Premature atrial complexes Right bundle branch block Left anterior fascicular block Bifascicular block Impression Assessment and Plan This is an obese 87 year old male with a PMH of severe aortic stenosis, paroxysmal atrial fibrillation, hx. 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 Complicated UTI in the setting of a Chronic Indwelling Catheter patient presented with chills and a fever. UA is dirty with urine culture and blood culture x2 pending started on Rocephin, which I will continue follows with urology as outpatient for the chronic indwelling catheter Acute Hypoxic Respiratory Failure in the setting of Valvular Heart Disease patient meets hypoxic respiratory failure criteria - tachypnea; pulse ox <90% on RA patient was recently started (early in the week prior to arrival) on 20mg of PO Lasix due to LE swelling CXR suggests volume overload; hx. of severe aortic stenosis plan is to monitor in tele, I's and O's, daily weights will do IV Lasix 20mg BID for now obtain an updated echo Paroxysmal Atrial Fibrillation currently in sinus rhythm noted to have tachycardia, bifascicular block, and prolonged QTc on EKG he is off of b-blockers, possibly due to the block monitor in tele DM2 hx. of diabetes, diet controlle last Ha1c ~ 6.6% BSGs on presentation elevated, given SQ regular insulin will add a sliding scale, check an Ha1c in AM Hypothyroidism continue Synthroid DVT ppx Lovenox FULL CODE VTE Prophylaxis VTE Risk Assessment Done? Y/N: Yes Risk Level: High
[2017-07-18] MEDS ORDERED: INSULIN ASPART 100 UNITS/ML 3 ML PEN SC SCH (16:00)
[2017-07-18 17:30] VITALS: BP 105/65; PULSE 85; TEMP 37; O2SAT 97; BMI 38.3
[2017-07-18] MEDS ORDERED: FUROSEMIDE INJ 20 MG in SYRINGE 0 ML IV SCH (18:03)
[2017-07-18] MEDS: INSULIN ASPART 100 UNITS/ML 3 ML PEN SC SCH ×2 (18:27→20:22)
[2017-07-18 18:41] LABS: PTT PATIENT 26.2 SECONDS (21.0-31.0)
[2017-07-18 19:24] VITALS: BP 134/74; PULSE 81; TEMP 36.8; O2SAT 98
[2017-07-18] MEDS: CEROVITE ADV FORMULA TAB PO SCH (20:20)
[2017-07-18] MEDS: ENOXAPARIN 40 MG/0.4 ML SYR SC SCH (20:20)
[2017-07-18] MEDS: SIMVASTATIN 40 MG TAB PO SCH (20:21)
[2017-07-18 22:02] VITALS: PULSE 102; O2SAT 92
[2017-07-18 23:03] VITALS: BP 123/70; PULSE 114; TEMP 38.3; O2SAT 93
[2017-07-18 23:50] LABS: HEMATOCRIT 36.5 % (42-52); HEMOGLOBIN 11.9 g/dL (14.0-18.0); MEAN CELL VOLUME 97.3 fL (80-100); MEAN CORPUSCULAR HEMOGLOBIN 31.7 pg (25-34); MEAN PLATELET VOLUME 9.5 fL (7.4-10.4); PLATELET COUNT 103 K/uL (130-400); RED CELL DISTRIBUTION WIDTH CV 13.9 % (11.5-14.5); RED CELL DISTRIBUTION WIDTH SD 49.3 fL (36.4-46.3); WHITE BLOOD COUNT 11.69 K/uL (4.8-10.8)
[2017-07-18 23:59] LABS: MEAN CORPUSCULAR HGB CONC 32.6 g/dl (32-36)
[2017-07-19] VITALS (14 sets, daily range): BP systolic 99–135; BP diastolic 58–80; PULSE 91–111; TEMP 36.7–39.2; O2SAT 92–100; Ht 175.3 cm; Wt 111.1 kg
[2017-07-19 00:11] LABS: CREATININE 1.16 mg/dl (0.60-1.40); POTASSIUM 4.2 mmol/L (3.5-5.1)
[2017-07-19] MEDS ORDERED: SODIUM CHLORIDE 0.9% 1000ML 1,000 ML IV SCH (00:15)
[2017-07-19] MEDS ORDERED: RISPERIDONE 1 MG TAB PO ONE (00:15)
[2017-07-19] MEDS ORDERED: VANCOMYCIN CONSULT ACTIVE PRN (00:32)
[2017-07-19 00:54] LABS: BASO % 0.3 %; BASO ABS # 0.03 K/uL (0-0.2); EOS % 0.8 %; EOS ABS # 0.09 K/uL (0-0.5); IG# 0.05 K/uL (0.00-0.02); LYMPH % 16.5 %; LYMPH ABS # 1.93 K/uL (1.2-3.4); MONO % 13.8 %; MONO ABS # 1.61 K/uL (0.11-0.59); NEUT % 68.2 %; NEUT ABS # 7.98 K/uL (1.4-6.5)
[2017-07-19] MEDS ORDERED: PIPERACILL/TAZOBAC CONSULT ACTIVE PRN (01:00)
[2017-07-19] MEDS ORDERED: PIPERACILL/TAZOBAC IV 4.5 GM in DEXTROSE 5% 50ML 50 ML IV ONE (01:00)
[2017-07-19] MEDS ORDERED: VANCOMYCIN INJ 2,750 MG in SODIUM CHLORIDE 0.9% 500ML 500 ML IV SCH (01:00)
[2017-07-19 01:25] LABS: INFLUENZA A PCR Neg for Influ A (NEG); INFLUENZA B PCR Neg for Influ B (NEG)
[2017-07-19 03:16] LABS: HEMATOCRIT 36.1 % (42-52); HEMOGLOBIN 11.7 g/dL (14.0-18.0); MEAN CELL VOLUME 98.4 fL (80-100); MEAN CORPUSCULAR HEMOGLOBIN 31.9 pg (25-34); MEAN CORPUSCULAR HGB CONC 32.4 g/dl (32-36); RED CELL DISTRIBUTION WIDTH CV 13.9 % (11.5-14.5); RED CELL DISTRIBUTION WIDTH SD 49.6 fL (36.4-46.3); WHITE BLOOD COUNT 10.79 K/uL (4.8-10.8)
[2017-07-19 03:19] LABS: MEAN PLATELET VOLUME 9.5 fL (7.4-10.4); PLATELET COUNT 99 K/uL (130-400)
--- NOTE | 2017-07-19 03:27 | Progress Note ---
Progress Note Date of Service Jul 19, 2017. Progress Note 87 yo M admitted with UTI, has severe , PAF, h/o lymphoma and was mildly hypoxic on exam. I was called by the nurse for worsened respiratory distress overnight. On exam his RR is 40, he is delirious and continues to pull his gown and oxygen off. Lungs are clear, but there is only rapid shallow breathing present and he is unable to follow commands. He is tachycardic. He is maintaining his oxygen saturation on 3L via nasal canula. CXR reveals no changes from that taken earlier in the day. ABG is 7.46/39/78 on 3L consistent with a respiratory alkalosis likely multifactorial including 2/2 agitation from delium () in setting of known UTI, ?evolving sepsis, and fever that is now present. Repeat blood cultures are pending. BRioad spectrum abx were started and IVF were started. He was given 1mg risperidone and in 1-2 hours his RR had come to <30 and he appeared more calm. DO Cristino
[2017-07-19 03:39] LABS: CALCIUM 8.7 mg/dl (8.5-10.1); CREATININE 1.32 mg/dl (0.60-1.40); POTASSIUM 4.2 mmol/L (3.5-5.1)
[2017-07-19] MEDS ORDERED: HALOPERIDOL LACTATE 5 MG/ML 1 ML VIAL IV STA (04:38)
[2017-07-19] MEDS ORDERED: NURSING VERBAL MED ORDER ONE (04:45)
[2017-07-19] MEDS: LEVOTHYROXINE 88 MCG TAB PO SCH (05:35)
[2017-07-19] MEDS: PIPERACILL/TAZOBAC IV 4.5 GM in DEXTROSE 5% 50ML 50 ML IV SCH ×3 (05:35→21:23)
--- NOTE | 2017-07-19 06:02 | DIAGNOSTIC IMAGING REPORT ---
CHEST ONE VIEW PORTABLE CLINICAL HISTORY: tachypnea 40 bpm, hypoxic dyspnea COMPARISON STUDY: 07/18/2017 FINDINGS: Moderate cardiac megaly. Central catheters. Vena cava. Prominent pulmonary vasculature slightly increased in the prior study. IMPRESSION: Congestive heart failure. The above report was generated using voice recognition software. It may contain grammatical, syntax or spelling errors. Electronically signed by: Get Escalante M.D. 07/19/2017 6:00 AM Dictated Date/Time: 07/19/2017 5:59 AM
[2017-07-19] MEDS: INSULIN ASPART 100 UNITS/ML 3 ML PEN SC SCH ×4 (07:00→21:00)
[2017-07-19] MEDS: FUROSEMIDE INJ 40 MG in SYRINGE 0 ML IV SCH ×2 (07:36→16:54)
[2017-07-19] MEDS: POLYETHYLENE (MIRALAX) 17 GM PACK PO SCH (07:38)
[2017-07-19] MEDS: CEROVITE ADV FORMULA TAB PO SCH ×2 (07:38→21:00)
[2017-07-19] MEDS ORDERED: PERFLUTREN LIPID MICROSPHERE (DEFINITY) IV ONE (07:40)
[2017-07-19] MEDS: ASPIRIN 81 MG ECTAB PO SCH (07:53)
[2017-07-19] MEDS: ACETAMINOPHEN IV 650 MG in EMPTY BAG 0 ML IV PRN ×2 (08:17→19:48)
[2017-07-19] MEDS ORDERED: FUROSEMIDE INJ 40 MG in SYRINGE 0 ML IV SCH (09:00)
[2017-07-19] MEDS ORDERED: AZITHROMYCIN IV 500 MG in DEXTROSE 5% 250ML 250 ML IV STA (10:11)
[2017-07-19] MEDS ORDERED: METOPROLOL TARTRATE 25 MG TAB PO ONE (11:00)
--- NOTE | 2017-07-19 11:11 | DIAGNOSTIC IMAGING REPORT ---
VENOUS DOPPLER LWR EXT BILA HISTORY: Pain. Edema. rule out DVT COMPARISON STUDY: None. FINDINGS: There is normal compressibility, flow, and augmentation within the bilateral lower extremity deep venous systems. IMPRESSION: No DVT within the right or left lower extremity. The above report was generated using voice recognition software. It may contain grammatical, syntax or spelling errors. Electronically signed by: Get Escalante M.D. 07/19/2017 11:10 AM Dictated Date/Time: 07/19/2017 11:10 AM
--- NOTE | 2017-07-19 11:49 | Pharmacy Progress Note ---
Pharmacy Abx Dose Short Note Date of Service Jul 19, 2017. Assessment & Plan Item Value Date Time Urine Culture - Preliminary Resulted 07/18/17 1305 Urine,Catheterized Gram Negative Bacilli Blood Culture Received 07/18/17 1115 Blood Pending Blood Culture Received 07/18/17 1030 Blood Pending Creatinine 1.32 mg/dl 07/19/17 0302 Est Creatinine Clear Calc Drug Dose 50.8 ml/min 07/19/17 0302 Assessment 87 year old male receiving VANC/ZOSYN/Azith for treatment of a pulmonary source inf & complicated UTI. Day # 1 of antimicrobial therapy. Pertinent PMH: advanced age, hx TURP, h/o MRSA MDRO, amputation lesser toe, DM2 , chronic indwelling urinary catheter. Plan Vancomycin * Estimate t1/2~15hrs * LOADING DOSE: 2750mg (~25mg/kg) IV x 1 * MAINTENANCE DOSE: VANC 1500mg (~13mg/kg) IV q 18 hours * Goal trough level: 15 to 20 mcg/mL * VANC Trough level @ Css prior to 07/21 0330 dose Zosyn: Continue 4.5 grams IV CI every 9 hours Zithromax: ordered 500mg IV daily (not a consult) Pharmacy will continue to follow and will adjust dose/frequency as necessary. Thank you.
[2017-07-19] MEDS ORDERED: CEFTRIAXONE SOD INJ 1 GM in DEXTROSE 5% ADD-VANTAGE 50ML 50 ML IV SCH (12:00)
[2017-07-19] MEDS ORDERED: OPTIRAY 320 IV PRN (12:15)
--- NOTE | 2017-07-19 13:17 | DIAGNOSTIC IMAGING REPORT ---
(CHEST FOR PE) ANGIO WITH CT DOSE: 2462.64 mGy.cm HISTORY: Chest pain dyspnea TECHNIQUE: Multiaxial CT images of the chest were performed following the intravenous administration of contrast to evaluate the pulmonary arteries. Maximal intensity projection images were also obtained. A dose lowering technique was utilized adhering to the principles of ALARA. COMPARISON STUDY: None. FINDINGS: There is a normal caliber thoracic aorta with no evidence for dissection. There is no evidence for pulmonary embolus. No pleural effusions. No pneumothorax. The liver and spleen are unremarkable. No mediastinal or hilar lymphadenopathy. The central airways are patent. The lungs are clear. IMPRESSION: No evidence for pulmonary embolus. The above report was generated using voice recognition software. It may contain grammatical, syntax or spelling errors. Electronically signed by: Get Escalante M.D. 07/19/2017 1:16 PM Dictated Date/Time: 07/19/2017 1:13 PM
--- NOTE | 2017-07-19 13:22 | DIAGNOSTIC IMAGING REPORT ---
ABD/PELVIS IV CONTRAST ONLY CT DOSE: HISTORY: Pain rule out hydronephrosis TECHNIQUE: Multiaxial CT images of the abdomen and pelvis were performed following the use of intravenous contrast. A dose lowering technique was utilized adhering to the principles of ALARA. COMPARISON STUDY: 04/17/2015 FINDINGS: Lung bases are clear. Liver spleen and pancreas are unremarkable. There is considerable atherosclerotic change abdominal and pelvic arterial vasculature. Moderate cortical scarring of the kidneys is present. No evidence for hydronephrosis. Bowel pattern overall is nonobstructive. There is no significant abdominal or pelvic adenopathy. A Monson catheter is present within the bladder. IMPRESSION: No acute process within the abdomen or pelvis. Chronic changes as noted. The above report was generated using voice recognition software. It may contain grammatical, syntax or spelling errors. Electronically signed by: Get Escalante M.D. 07/19/2017 1:20 PM Dictated Date/Time: 07/19/2017 1:17 PM
--- NOTE | 2017-07-19 13:46 | ECHOCARDIOGRAM REPORT ---
*NOTICE TO RECEIVING DEMOCRAT AGENCY This information is strictly Confidential and protected under [place] law. [place] law prohibits you from making any further disclosure of this information unless further disclosure is expressly permitted by the written consent of the person to whom it pertains or is authorized by law. A general authorization for the release of medical or other information is not sufficient for this purpose. Hospital accepts no responsibility if the information is made available to any other person, INCLUDING THE PATIENT. Interpretation Summary * Name: JESSI LIPSCOMB Study Date: 07/19/2017 07:20 AM BP: 121/74 mmHg * Patient Location: .2T\S\E221\S\1 HR: 84 * : 1930 (M/d/yyy) Gender: Male Height: 70 in * Age: 87 yrs Ethnicity: [place] Weight: 253 lb * Ordering Physician: Darren Carlson * Referring Physician: No Doctor, Assigned * Performed By: Modesto Briggs RDCS * * Reason For Study: Valvular heart disesase * BSA: 2.3 m2 * The study was technically limited. * Compared to prior study, changes are noted. * -- Conclusions -- * Ejection Fraction = 60-65%. * There is moderate concentric left ventricular hypertrophy. * The aortic valve is severely calcified. * There is severe calcific aortic valve stenosis. * Calcified mitral apparatus. * There is moderate mitral stenosis. * There is mild mitral regurgitation. * Mild aortic root dilatation. * Mildly dilated ascending aorta. Procedure Details * A complete two-dimensional transthoracic echocardiogram was performed (2D, M-mode, Doppler and color flow Doppler). * The study was technically difficult. * The study was technically difficult, but visualization was adequate with the administration of Definity ultrasound contrast. * A contrast injection of Definity was performed to improve assessment of LV function. * The attending nurse who injected the contrast agent was AGUS Gomez. * Contrast was injected into an intravenous site in the left arm. * Lot # [id number] of Definity utilized for procedure. * Expiration date 1FEB. Left Ventricle * The left ventricle is normal in size. * Evaluation limited by frequent ventricular ectopy. * There is moderate concentric left ventricular hypertrophy. * Left ventricular systolic function is normal. * Ejection Fraction = 60-65%. * No regional wall motion abnormalities noted. Right Ventricle * The right ventricle is normal size. * The right ventricular systolic function is normal as assessed by tricuspid annular plane systolic excursion (TAPSE) (normal >1.5 cm). Atria * The left atrial size is normal. * Right atrial size is normal. * There is no evidence of atrial septal defect, but resolution does not allow assessment for a patent foramen ovale. Mitral Valve * There is severe mitral annular calcification. * Calcified mitral apparatus. * There is moderate mitral stenosis. * There is mild mitral regurgitation. Tricuspid Valve * The tricuspid valve is not well visualized. * There is no tricuspid stenosis. * Significant tricuspid regurgitation is absent. Aortic Valve * The aortic valve is not well visualized. * The aortic valve is severely calcified. * There is severe calcific aortic valve stenosis. * There is no significant aortic regurgitation. Pulmonic Valve * The pulmonary valve is not well seen, but the Doppler examination is normal without significant regurgitation or stenosis. Great Vessels * Mild aortic root dilatation. * Mildly dilated ascending aorta. Pericardium/Pleural * There is no pericardial effusion. Great Vessels * Normal inferior vena cava diameter and respiratory variation suggests normal central venous pressure. Left Ventricular Diastolic Function * Pulse wave TDI of the anterior and posterior mitral annulas demonstrates abnormal LV relaxation MMode 2D Measurements and Calculations IVSd 1.5 cm IVSs 2.1 cm LVIDd 4.8 cm LVIDs 3.0 cm LVPWd 1.5 cm LVPWs 1.9 cm IVS/LVPW 0.99 FS 37.0 % EDV(Teich) 107.3 ml ESV(Teich) 35.6 ml EF(Teich) 66.8 % EDV(cubed) 110.3 ml ESV(cubed) 27.5 ml EF(cubed) 75.0 % % IVS thick 41.9 % % LVPW thick 28.7 % LV mass(C)d 299.3 grams LV mass(C)dI 129.8 grams/m\S\2 LV mass(C)s 268.6 grams LV mass(C)sI 116.4 grams/m\S\2 SV(Teich) 71.7 ml SI(Teich) 31.1 ml/m\S\2 SV(cubed) 82.7 ml SI(cubed) 35.9 ml/m\S\2 Ao root diam 4.0 cm Ao root area 12.4 cm\S\2 LA dimension 4.3 cm asc Aorta Diam 3.9 cm LA/Ao 1.1 LVOT diam 2.0 cm LVOT area 3.0 cm\S\2 LVAd ap4 23.8 cm\S\2 LVLd ap4 6.8 cm EDV(MOD-sp4) 68.4 ml EDV(sp4-el) 71.2 ml LVAs ap4 10.6 cm\S\2 LVLs ap4 5.5 cm ESV(MOD-sp4) 17.1 ml ESV(sp4-el) 17.4 ml EF(MOD-sp4) 74.9 % EF(sp4-el) 75.5 % LVAd ap2 26.4 cm\S\2 LVLd ap2 7.1 cm EDV(MOD-sp2) 82.2 ml EDV(sp2-el) 82.9 ml LVAs ap2 12.8 cm\S\2 LVLs ap2 5.4 cm ESV(MOD-sp2) 24.6 ml ESV(sp2-el) 25.5 ml EF(MOD-sp2) 70.1 % EF(sp2-el) 69.2 % LVLd %diff 5.1 % EDV(MOD-bp) 77.1 ml LVLs %diff -1.29 % ESV(MOD-bp) 20.3 ml EF(MOD-bp) 73.7 % SV(MOD-sp4) 51.3 ml SI(MOD-sp4) 22.2 ml/m\S\2 SV(MOD-sp2) 57.6 ml SI(MOD-sp2) 25.0 ml/m\S\2 SV(MOD-bp) 56.8 ml SI(MOD-bp) 24.6 ml/m\S\2 SV(sp4-el) 53.8 ml SI(sp4-el) 23.3 ml/m\S\2 SV(sp2-el) 57.4 ml SI(sp2-el) 24.9 ml/m\S\2 Doppler Measurements and Calculations MV E max joshua 134.2 cm/sec MV A max joshua 179.5 cm/sec MV E/A 0.75 MV V2 max 232.9 cm/sec MV max PG 21.7 mmHg MV V2 mean 100.9 cm/sec MV mean PG 6.4 mmHg MV V2 VTI 44.4 cm MVA(VTI) 1.8 cm\S\2 MV P1/2t max joshua 137.7 cm/sec MV P1/2t 126.5 msec MVA(P1/2t) 1.7 cm\S\2 MV dec slope 318.9 cm/sec\S\2 MV dec time 0.29 sec Ao V2 max 487.5 cm/sec Ao max PG 95.0 mmHg Ao max PG (full) 90.3 mmHg Ao V2 mean 362.8 cm/sec Ao mean PG 58.6 mmHg Ao mean PG (full) 55.8 mmHg Ao V2 VTI 84.4 cm KIMANI(I,A) 0.94 cm\S\2 KIMANI(I,D) 0.94 cm\S\2 KIMANI(V,A) 0.67 cm\S\2 KIMANI(V,D) 0.67 cm\S\2 AI max joshua 318.4 cm/sec AI max PG 40.6 mmHg AI dec slope 146.9 cm/sec\S\2 AI P1/2t 635.0 msec LV V1 max PG 4.7 mmHg LV V1 mean PG 2.9 mmHg LV V1 max 108.6 cm/sec LV V1 mean 80.1 cm/sec LV V1 VTI 26.3 cm SV(Ao) 1042.8 ml SI(Ao) 452.1 ml/m\S\2 SV(LVOT) 79.6 ml SI(LVOT) 34.5 ml/m\S\2 PA V2 max 141.2 cm/sec PA max PG 8.0 mmHg
--- NOTE | 2017-07-19 14:14 | Progress Note ---
Progress Note Date of Service Jul 19, 2017. Progress Note Subjective: Patient breathing better with BIPAP Physical Exam: General: was tachypneic on nasal cannula and breathing better with BIPAP, patient is now more calm, awake Lungs: no wheezing, no crackles Heart: tachycardia is resolving Abdomen: truncal obesity, soft, nontender Extremities: no gross swelling but some bilateral edema Subsequent studies since day of admission Echocardiogram * Ejection Fraction = 60-65%. * There is moderate concentric left ventricular hypertrophy. * The aortic valve is severely calcified. * There is severe calcific aortic valve stenosis. * Calcified mitral apparatus. * There is moderate mitral stenosis. * There is mild mitral regurgitation. * Mild aortic root dilatation. * Mildly dilated ascending aorta Ultrasound: No DVT within the right or left lower extremity CTA: There is a normal caliber thoracic aorta with no evidence for dissection. There is no evidence for pulmonary embolus. No pleural effusions. No pneumothorax. The liver and spleen are unremarkable. No mediastinal or hilar lymphadenopathy. The central airways are patent. The lungs are clear CT abdomen: Lung bases are clear. Liver spleen and pancreas are unremarkable. There is considerable atherosclerotic change abdominal and pelvic arterial vasculature. Moderate cortical scarring of the kidneys is present. No evidence for hydronephrosis. Bowel pattern overall is nonobstructive. There is no significant abdominal or pelvic adenopathy. A Monson catheter is present within the bladder. This is an obese 87 year old male with a PMH of severe aortic stenosis, paroxysmal atrial fibrillation, hx. of lymphoma in remission, DM2, hypothyroidism, chronic indwelling urinary catheter secondary to severe phimosis , lichen sclerosis and urinary retention - presents secondary to fevers/chills and dyspnea with exertion -Patient subsequently became more confused overnight since the day of admission requiring both risperidone and haldol and appeared to be in more respiratory distress while on Nasal cannula -Patient was started on BIPAP -Patient was see this AM with ICU physician, Additional labs were drawn including blood gas, Imaging studies shown known aortic stenosis as commented on previous admission in October 2016 admission when patient was treated for sepsis from UTI. Patient doing better on BIPAP -likely that patient's current symptoms is from sepsis due to UTI; urine culture on admission 07/18/17 with gram negative bacilli -Continue Vancomycin and Zosyn -elevated troponins -cardiology service: "Overall, the patient's prognosis is poor given evidence of acute decompensated heart failure in the setting of critical aortic stenosis and urosepsis. Prognosis discussed with the patient and family at bedside. Recommend continued diuretic therapy as blood pressure tolerates given evidence of peripheral edema and hypoxia. We will attempt to restart low-dose beta- wil therapy to avoid episodes of paroxysmal atrial fibrillation. Metoprolol 12.5 mg ordered. Antibiotics as per internal medicine." -Diet: NPO except meds for now due to being on BIPAP -Can take oral Synthroid for history of hypothyroidism tomorrow if patient can swallow comfortably DVT ppx Lovenox FULL CODE
--- NOTE | 2017-07-19 14:24 | CARDIOLOGY CONSULTATION ---
DATE OF CONSULTATION: 07/19/2017 REASON FOR CONSULTATION: Elevated troponin, EKG changes. REFERRING PHYSICIAN: Dr. Richard Weeks. HISTORY OF PRESENT ILLNESS: Mr. Garcia is a complex 87-year-old obese male with a history of critical aortic stenosis, paroxysmal atrial fibrillation, lymphoma in remission, chronic indwelling urinary catheter secondary to severe phimosis and recurrent urinary tract infection and presented to the ER with fever, chills, rigors, and dyspnea on exertion. The patient is on BiPAP. He is awake; however, unable to answer questions. Family present at bedside. They state the patient became confused and short of breath. They state this how the patient when his urinary tract infection recurs. Recently, he was prescribed oral Lasix by primary care due to lower extremity edema. Edema suspected related to decompensated heart failure and critical aortic stenosis. Currently, patient is resting comfortably. Lower extremity edema noted. The patient denies any recent orthopnea or paroxysmal nocturnal dyspnea. No recent chest discomfort. Functional capacity is poor. The patient ambulates with use of a walker. Noted be hypoxic on admission. REVIEW OF SYSTEMS: The pertinent positive noted above, a comprehensive 10-system review as discussed with the family as well as per review of medical record is otherwise negative. PAST MEDICAL HISTORY: 1. Aortic stenosis -- severe, medical management only as per most recent cardiology notes. 2. Chronic anemia. 3. Recurrent urinary tract infection. 4. Chronic urinary catheter. 5. Phimosis. 6. Hypertension. 7. Lymphoma. 8. Colon cancer. 9. Obesity. PAST SURGICAL HISTORY: 1. Cataract surgery. 2. 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 3. TURP. 4. Indwelling Monson catheter. FAMILY HISTORY: Negative for premature CAD or sudden cardiac . SOCIAL HISTORY: Lifelong nonsmoker. He is and lives with his . ALLERGIES: BACLOFEN, SULFAMETHOXAZOLE. HOME MEDICATIONS: 1. Aspirin 81 mg daily. 2. Synthroid daily. 3. Toprol-XL 12.5 mg at bedtime. 4. Simvastatin 40 mg at bedtime. 5. Risperdal every 12 hours as needed. LABORATORY DATA: Urine culture demonstrates gram negative bacilli x2. White blood cell count 10.7, hemoglobin is 11.7, platelet count is 99. Troponin 0.046, repeat troponin 0.107. Sodium 137, potassium 4.2, chloride is 104, CO2 is 25, BUN is 27, creatinine is 1.32. Procalcitonin 0.35. TSH 0.834. Lactic acid 1.4. Blood gas on admission 7.46/39/78/27/95% on 3 liters. Positive pressure ventilation. Telemetry demonstrates sinus rhythm, frequent PACs, frequent PVCs, multiple short salvos of paroxysmal supraventricular tachycardia. PHYSICAL EXAMINATION: VITAL SIGNS: T-max 39.1 degrees centigrade, pulse is 99 beats per minute and irregular, respiratory rate is 26 breaths per minute, blood pressure 113/67. SaO2 is 93% on 5 liters. GENERAL: Lethargic, arousable to verbal stimuli. Chronically ill, obese. HEENT: Mucous membranes are moist. No scleral icterus. Conjunctivae pink. NECK: Supple. JVD cannot be assessed due to body habitus. No carotid bruit. HEART: Irregular, borderline tachycardic with a normal S1, there is no S2 audible. There is a 2-3/6 late peaking systolic ejection murmur heard best at the cardiac base. LUNGS: Demonstrate diminished breath sounds bilaterally. ABDOMEN: Soft and nontender, obese. No rebound or guarding, normal bowel sounds. EXTREMITIES: Warm and dry. There is +1 to 2 pedal edema bilaterally. NEUROLOGIC: Demonstrates no focal deficit. FINAL IMPRESSION: 1. An 87-year-old male with critical aortic stenosis and acute decompensated heart failure related to valvular heart disease presents with urosepsis secondary to chronic indwelling urinary catheter. Elevated troponin secondary to acute decompensated heart failure, sepsis, demand ischemia. 2. History of paroxysmal atrial fibrillation with the current telemetry demonstrating sinus rhythm, frequent premature atrial contractions, runs of paroxysmal supraventricular tachycardia as well as premature ventricular contractions. 3. Preliminary review of repeat 2D echo today demonstrates preserved left ventricular systolic function with a critical aortic stenosis. No significant pericardial effusion. 4. Acute renal insufficiency superimposed on chronic kidney disease related to sepsis. 5. Hypoxia secondary to decompensated heart failure, sepsis syndrome. 6. Delirium secondary to hypoxia, sepsis. 7. Mild anemia. PLAN AND RECOMMENDATIONS: Overall, the patient's prognosis is poor given evidence of acute decompensated heart failure in the setting of critical aortic stenosis and urosepsis. Prognosis discussed with the patient and family at bedside. Recommend continued diuretic therapy as blood pressure tolerates given evidence of peripheral edema and hypoxia. We will attempt to restart low-dose beta-wil therapy to avoid episodes of paroxysmal atrial fibrillation. Metoprolol 12.5 mg ordered. Antibiotics as per internal medicine. We will follow cultures. Repeat basic metabolic panel in a.m. Thank you for allowing me to participate in the care of your patient.
[2017-07-19] MEDS: VANCOMYCIN INJ 1,500 MG in SODIUM CHLORIDE 0.9% 500ML 500 ML IV SCH (15:49)
--- NOTE | 2017-07-19 18:56 | Progress Note ---
Progress Note Date of Service Jul 19, 2017. Progress Note Patient was on non rebreather mask. Appeared to be in delirium to the patient's family members. Blood pressure stable. Currently afebrile. Glucose in 140s. Patient appears to have increased work of breathing when off BIPAP. Patient now back on BIPAP. Have discussed with ICU physician that patient may benefit from closer monitoring. There does not appear a need for patient to be intubated at this time but this is a main concern for near future if patient's respiratory and/or mental status declines further
[2017-07-19] MEDS: SIMVASTATIN 40 MG TAB PO SCH (21:00)
[2017-07-19] MEDS: METOPROLOL TARTRATE 25 MG TAB PO SCH (21:00)
[2017-07-19] MEDS: ENOXAPARIN 40 MG/0.4 ML SYR SC SCH (21:23)
--- NOTE | 2017-07-19 21:32 | DIAGNOSTIC IMAGING REPORT ---
L FOOT 2 VIEWS CLINICAL HISTORY: rule out foreign body COMPARISON: None. DISCUSSION: Moderate generalized degenerative change. No evidence for radiopaque foreign body. No acute bony abnormality. Mild soft tissue edema. IMPRESSION: Moderate generalized degenerative change. Mild soft tissue edema. No evidence for radiopaque foreign body. The above report was generated using voice recognition software. It may contain grammatical, syntax or spelling errors. Electronically signed by: Get Escalante M.D. 07/19/2017 9:30 PM Dictated Date/Time: 07/19/2017 9:29 PM
--- NOTE | 2017-07-19 22:43 | Critical Care Consultation ---
Critical Care Consultation Date of Consultation: Jul 19, 2017. Attending Physician: Richard Weeks M.D. Reason for Consultation: Respiratory failure History of Present Illness Patient was seen earlier on the floor, now in ICU. This is an 87 year old male with h/o aortic stenosis, paroxysmal a-fib, h/o treated lymphoma, DM2, chronic Monson was admitted on 07/18 for fever and chills and shortness of breath. Noted LE swelling and redness of LE Today he was more confused, more short of breath, more lethargic, requiring BIPAP. Received Lasix this morning with good response. Initially he improved, but early evening he worsened significantly, was placed back on BIPAP and transferred to ICU. Now he is more awake, but still confused. Has no complaints Past Medical/Surgical History (1) Aortic stenosis, severe Permanent Comment: echo 2015: critical Status: Chronic (2) Chronic anemia Status: Chronic (3) Dyslipidemia Status: Chronic (4) History of colon cancer Status: Chronic (5) Hypertension Status: Chronic (6) Lymphoma Permanent Comment: remission Status: Resolved (7) Obesity Status: Chronic Surgical Problems: (1) H/O cataract removal with insertion of prosthetic lens Permanent Comment: R side Status: Resolved (2) History of amputation of lesser toe of right foot Permanent Comment: 3rd toe amputation 2* gangrene Status: Resolved (3) S/P TURP (status post transurethral resection of prostate) Status: Resolved Family History Omitted due to age Social History Smoking Status: Unknown if Ever Smoked Drug Use: none Marital Status: Housing Status: lives with significant other Occupation Status: retired Allergies Coded Allergies: Baclofen (Verified Allergy, Intermediate, HIVES, 07/18/17) Sulfamethoxazole w/Trimethoprim (Verified Allergy, Mild, rash per PCP records , 07/18/17) Home Medications Scheduled Aspirin Enteric Coated (Ecotrin Or Generic), 81 MG PO QAM Furosemide (Lasix), 20 MG PO DAILY Levothyroxine Sodium (Synthroid), 2 TAB PO QAM Ocuvite Preservision (Ocuvite Preservision), 1 TAB PO BID Polyethylene Glycol 3350 (Miralax), 17 GM PO DAILY Simvastatin (Zocor), 40 MG PO HS Scheduled PRN Lidocaine-Prilocaine (Lidocaine/Prilocaine), 1 APPLN TOP UD PRN for Pain Risperidone (Risperidone), 0.5 MG PO Q12 PRN for agitation Current Inpatient Medications Current Inpatient Medications Medications (Trade) Dose Ordered Sig/Robert Route Start Time Stop Time Status Last Admin Dose Admin Enoxaparin Sodium (Lovenox Inj) 40 mg DAILY@1999 SC 07/18/17 20:00 08/17/17 19:59 07/19/17 21:23 40 MG Ondansetron HCl (Zofran Inj) 4 mg Q6H PRN IV 07/18/17 14:15 08/17/17 14:14 Glucose (Glucose 40% Gel) 15-30 GRAMS 15 GRAMS... UD PRN PO 07/18/17 14:15 08/17/17 14:14 Glucose (Glucose Chew Tab) 4-8 Tablets 4 Tabl... UD PRN PO 07/18/17 14:15 08/17/17 14:14 Dextrose (Dextrose 50% 50ML Syringe) 25-50ML OF 50% DW IV FOR... UD PRN IV 07/18/17 14:15 08/17/17 14:14 Glucagon (Glucagon Inj) 1 mg UD PRN SQ 07/18/17 14:15 08/17/17 14:14 Aspirin (Ecotrin Tab) 81 mg QAM PO 07/19/17 09:00 08/18/17 08:59 Levothyroxine Sodium (Synthroid Tab) 176 mcg DAILYBB PO 07/19/17 06:00 08/18/17 05:59 07/19/17 05:35 176 MCG Multivitamins/ Minerals (Multivitamin W/ Minerals Tab) 1 tab BID PO 07/18/17 21:00 08/17/17 20:59 07/18/17 20:20 1 TAB Risperidone (Risperdal Tab) 0.5 mg Q12 PRN PO 07/18/17 14:15 08/17/17 14:14 Simvastatin (Zocor Tab) 40 mg HS PO 07/18/17 21:00 08/17/17 20:59 07/18/17 20:21 40 MG Polyethylene (Miralax Powder Packet) 17 gm QAM PO 07/19/17 09:00 08/18/17 08:59 Insulin Aspart (novoLOG ASPART) SLIDING SCALE G... ACHS SC 07/18/17 16:15 08/17/17 16:14 07/18/17 18:27 8 UNITS Miscellaneous Information (Consult) 1 ea DAILY PRN N/A 07/19/17 00:32 08/18/17 00:31 Piperacillin Sod/ Tazobactam Sod 4.5 gm/Dextrose 70 ml @ 17.5 mls/hr Q8 IV 07/19/17 06:00 07/26/17 05:59 07/19/17 21:23 17.5 MLS/HR Miscellaneous Information (Consult) 1 ea UD PRN N/A 07/19/17 01:00 08/18/17 00:59 Acetaminophen 650 mg/Empty Bag 65 ml @ 260 mls/hr Q6H PRN IV 07/19/17 07:15 08/18/17 07:14 07/19/17 19:48 260 MLS/HR Furosemide 40 mg/ Syringe 4 ml @ 4 mls/min BID17 IV 07/19/17 07:30 08/18/17 07:29 07/19/17 16:54 4 MLS/MIN Azithromycin 500 mg/Dextrose 255 ml @ 125 mls/hr DAILY IV 07/20/17 09:00 07/27/17 08:59 Metoprolol Tartrate (Lopressor Tab) 12.5 mg BID PO 07/19/17 21:00 08/18/17 20:59 Vancomycin HCl 1500 mg/Sodium Chloride 530 ml @ 200 mls/hr Q18H IV 07/19/17 16:00 07/26/17 15:59 07/19/17 15:49 200 MLS/HR Ioversol (Optiray 320) 100 ml UD PRN IV 07/19/17 12:15 07/23/17 12:14 Review of Systems Per HPI Difficult to obtain secondary to confusion Physical Exam Date Time Temp Pulse Resp B/P (MAP) Pulse Ox O2 Delivery O2 Flow Rate FiO2 07/19/17 22:00 97 94 5.0 07/19/17 21:26 38.8 100 25 102/62 (75) 93 BiPAP 5.0 40 07/19/17 20:00 94 BiPAP 40 07/19/17 19:39 39.2 101 24 109/64 (79) 94 BiPAP 40 07/19/17 18:34 94 98 5.0 07/19/17 16:00 Mask 07/19/17 15:08 37.3 95 22 135/80 (98) 100 Oxymask 5.0 07/19/17 12:00 BiPAP 07/19/17 11:10 37.4 91 22 105/64 (78) 92 CPAP 5.0 40 07/19/17 09:05 99 93 5.0 07/19/17 08:00 Nasal Cannula 3.0 07/19/17 07:30 36.8 111 34 99/58 (72) 96 Nasal Cannula 3.0 07/19/17 07:30 36.7 101 27 113/67 (82) 94 Nasal Cannula 3.0 07/19/17 06:02 36.7 105 07/19/17 04:00 92 Nasal Cannula 3.0 07/19/17 03:39 38.4 110 26 118/66 (83) 94 Nasal Cannula 3.0 07/19/17 00:00 93 Nasal Cannula 3.0 07/18/17 23:03 93 Nasal Cannula 3.0 07/18/17 23:03 38.3 114 35 123/70 (87) 93 Nasal Cannula 3.0 General Appearance: well-appearing, no apparent distress, other (On BIPAP) Eyes: PERRLA Respiratory: no respiratory distress, other (bibasialr crackles ) Cardiovasular: irregular rate, systolic murmur Abdomen: non tender, no rebound, other (obese) Upper Extremities: no edema Lower Extremities: abnormal exam (erythema and warmth of LLE from the foot all the way above the ankle), edema Neuro: alert, normal motor exam, disoriented, confused Laboratory Results Last 24 Hours Test 07/18/17 23:39 07/18/17 23:41 07/18/17 23:43 07/19/17 00:00 Arterial Blood pH 7.46 Arterial Blood Partial Pressure CO2 39 mmHg Arterial Blood Partial Pressure O2 78 mm/Hg Arterial Blood HCO3 27 mmol/L Arterial Blood Oxygen Saturation 94.9 % Arterial Blood Base Excess 2.9 mEq/L Arterial Blood Gas Delivery 3L Angelo Test POS White Blood Count 11.69 K/uL Red Blood Count 3.75 M/uL Hemoglobin 11.9 g/dL Hematocrit 36.5 % Mean Corpuscular Volume 97.3 fL Mean Corpuscular Hemoglobin 31.7 pg Mean Corpuscular Hemoglobin Concent 32.6 g/dl Platelet Count 103 K/uL Mean Platelet Volume 9.5 fL Neutrophils (%) (Auto) 68.2 % Lymphocytes (%) (Auto) 16.5 % Monocytes (%) (Auto) 13.8 % Eosinophils (%) (Auto) 0.8 % Basophils (%) (Auto) 0.3 % Neutrophils # (Auto) 7.98 K/uL Lymphocytes # (Auto) 1.93 K/uL Monocytes # (Auto) 1.61 K/uL Eosinophils # (Auto) 0.09 K/uL Basophils # (Auto) 0.03 K/uL RDW Standard Deviation 49.3 fL RDW Coefficient of Variation 13.9 % Immature Granulocyte % (Auto) 0.4 % Immature Granulocyte # (Auto) 0.05 K/uL Sodium Level 137 mmol/L Potassium Level 4.2 mmol/L Chloride Level 104 mmol/L Carbon Dioxide Level 26 mmol/L Anion Gap 7.0 mmol/L Blood Urea Nitrogen 28 mg/dl Creatinine 1.16 mg/dl Est Creatinine Clear Calc Drug Dose 57.9 ml/min Estimated GFR () 65.7 Estimated GFR (Non- 56.7 BUN/Creatinine Ratio 23.7 Random Glucose 154 mg/dl Calcium Level 9.0 mg/dl Influenza Type A (RT-PCR) Neg for Influ A Influenza Type B (RT-PCR) Neg for Influ B Procalcitonin 0.35 ng/ml Test 07/19/17 00:39 07/19/17 03:02 07/19/17 06:49 07/19/17 09:14 Lactic Acid Level 1.4 mmol/L White Blood Count 10.79 K/uL Red Blood Count 3.67 M/uL Hemoglobin 11.7 g/dL Hematocrit 36.1 % Mean Corpuscular Volume 98.4 fL Mean Corpuscular Hemoglobin 31.9 pg Mean Corpuscular Hemoglobin Concent 32.4 g/dl RDW Standard Deviation 49.6 fL RDW Coefficient of Variation 13.9 % Platelet Count 99 K/uL Mean Platelet Volume 9.5 fL Sodium Level 137 mmol/L Potassium Level 4.2 mmol/L Chloride Level 104 mmol/L Carbon Dioxide Level 25 mmol/L Anion Gap 8.0 mmol/L Blood Urea Nitrogen 27 mg/dl Creatinine 1.32 mg/dl Est Creatinine Clear Calc Drug Dose 50.8 ml/min Estimated GFR () 56.2 Estimated GFR (Non- 48.5 BUN/Creatinine Ratio 20.8 Random Glucose 216 mg/dl Calcium Level 8.7 mg/dl Troponin I 0.047 ng/ml 0.107 ng/ml Thyroid Stimulating Hormone (TSH) 0.834 uIu/ml Bedside Glucose 179 mg/dl D-Dimer 540 ug/L FEU Test 07/19/17 11:03 07/19/17 11:05 07/19/17 11:15 07/19/17 15:37 Ammonia 15.0 umol/L Arterial Blood pH 7.44 Arterial Blood Partial Pressure CO2 40 mmHg Arterial Blood Partial Pressure O2 67 mm/Hg Arterial Blood HCO3 27 mmol/L Arterial Blood Oxygen Saturation 92.1 % Arterial Blood Base Excess 2.5 mEq/L Arterial Blood Gas Delivery 40% Angelo Test POS Bedside Glucose 180 mg/dl Pro-B-Type Natriuretic Peptide 4145 pg/ml Troponin I 0.217 ng/ml Test 07/19/17 15:57 07/19/17 18:19 07/19/17 19:32 07/19/17 21:24 Bedside Glucose 165 mg/dl 143 mg/dl 151 mg/dl Troponin I 0.225 ng/ml Diagnostic Results Echo 07/19/17: * Ejection Fraction = 60-65%. * There is moderate concentric left ventricular hypertrophy. * The aortic valve is severely calcified. * There is severe calcific aortic valve stenosis. * Calcified mitral apparatus. * There is moderate mitral stenosis. * There is mild mitral regurgitation. * Mild aortic root dilatation. * Mildly dilated ascending aorta. CTA chest 07/19/17: There is a normal caliber thoracic aorta with no evidence for dissection. There is no evidence for pulmonary embolus. No pleural effusions. No pneumothorax. The liver and spleen are unremarkable. No mediastinal or hilar lymphadenopathy. The central airways are patent. The lungs are clear. CT abdomen 07/19/17: Lung bases are clear. Liver spleen and pancreas are unremarkable. There is considerable atherosclerotic change abdominal and pelvic arterial vasculature. Moderate cortical scarring of the kidneys is present. No evidence for hydronephrosis. Bowel pattern overall is nonobstructive. There is no significant abdominal or pelvic adenopathy. A Monson catheter is present within the bladder. Assessment & Plan 87 year old male presents with LLE cellulitis. Also in respiratory failure with mild pulmonary edema. Has known as well as a-fib. Possible UTI vs polymicrobial colonization Not anticoagulated for a-fib Plan: Monitor mental status Maintain on BIPAP for now, attempt to wean in AM Diuresis with Lasix 40 mg iv bid Cardiology consult noted Pulmonary embolism has been excluded Continue Abx treatment, on Vanco, Zosyn and Zithromax. If he improved, may transfer patient to floor tomorrow [facility] time spent with patient, family, reviewing chart, greater than 30 minutes
[2017-07-20] VITALS (12 sets, daily range): BP systolic 97–128; BP diastolic 56–78; PULSE 90–116; TEMP 37.4–39; O2SAT 90–99
[2017-07-20 04:01] LABS: HEMATOCRIT 33.9 % (42-52); HEMOGLOBIN 11.1 g/dL (14.0-18.0); MEAN CELL VOLUME 97.7 fL (80-100); MEAN CORPUSCULAR HGB CONC 32.7 g/dl (32-36); RED CELL DISTRIBUTION WIDTH CV 13.9 % (11.5-14.5); WHITE BLOOD COUNT 10.44 K/uL (4.8-10.8)
[2017-07-20 04:23] LABS: MEAN PLATELET VOLUME 9.3 fL (7.4-10.4); PLATELET COUNT 94 K/uL (130-400)
[2017-07-20 04:29] LABS: CREATININE 1.46 mg/dl (0.60-1.40); POTASSIUM 3.7 mmol/L (3.5-5.1)
[2017-07-20 04:34] LABS: BASO % 0.4 %; BASO ABS # 0.04 K/uL (0-0.2); EOS % 0.8 %; EOS ABS # 0.08 K/uL (0-0.5); IG# 0.09 K/uL (0.00-0.02); LYMPH ABS # 1.88 K/uL (1.2-3.4); MONO % 10.2 %; MONO ABS # 1.07 K/uL (0.11-0.59); NEUT % 69.7 %; NEUT ABS # 7.28 K/uL (1.4-6.5)
[2017-07-20] MEDS: PIPERACILL/TAZOBAC IV 4.5 GM in DEXTROSE 5% 50ML 50 ML IV SCH ×3 (05:21→21:46)
[2017-07-20] MEDS: LEVOTHYROXINE 88 MCG TAB PO SCH (05:21)
[2017-07-20] MEDS: INSULIN ASPART 100 UNITS/ML 3 ML PEN SC SCH ×4 (05:31→20:39)
[2017-07-20] MEDS: ACETAMINOPHEN IV 650 MG in EMPTY BAG 0 ML IV PRN ×2 (05:33→21:07)
[2017-07-20 06:38] LABS: HEMOGLOBIN A1C 6.5 % (4.5-5.6)
--- NOTE | 2017-07-20 06:54 | Clinical Documentation Query ---
GATO De Los Santos : CLINICAL DOCUMENTATION QUERIES QUERY 1 OF 3 Patient is an 87 year old male admitted for indwelling urinary catheter associated UTI. He was tachypneic, tachycardic, and hypoxic on admission. He was initially provided IVF and subsequent chest radiograph read to include pulmonary edema. He has since been provided IV Lasix and fluids were discontinued, Bi-PAP initiated. Echocardiogram demonstrated an LVEF of 60-65% with severe calcific . In your clinical opinion is this patient being managed for: ( ) Acute diastolic CHF ( ) Not Agree ( x) Other explanation of clinical findings (Please Explain) ( ) Unable to determine (Please Define) ( ) Need to Discuss critical aortic stenosis and acute decompensated heart failure related to valvular heart disease as per cardiology The medical record reflects the following clinical findings, treatment, and risk factors. Clinical Indicators: As above Treatment: IV Lasix, oxygen supplementation, BiPAP, cardiology consultation, ICU standard of care Risk Factors: Age, UTI, sepsis QUERY 2 OF 3 Admission BUN and creatinine were 23 mg/dl and 1.15 mg/dl. This a.m. (07/20), values are 29 mg/dl and 1.46 mg/dl in the setting of sepsis secondary to UTI and acute ?diastolic CHF. He is being monitored by serial chemistries. In your clinical opinion is this patient being managed for: ( s) Acute kidney failure ( ) Not Agree ( ) Other explanation of clinical findings (Please Explain) ( ) Unable to determine (Please Define) ( ) Need to Discuss The medical record reflects the following clinical findings, treatment, and risk factors. Clinical Indicators: As above Treatment: Serial chemistries, treatment of UTI, supportive care Risk Factors: Sepsis, UTI, age, acute diastolic CHF QUERY 3 OF 3 Patient described as delirious and agitated, while disrobing and pulling oxygen tubing off. Behavior deemed "likely that patient's current symptoms is from sepsis due to UTI". This is in the setting of sepsis due to UTI, respiratory alkalosis, acute hypoxic respiratory failure, and acute diastolic CHF. His IVF were discontinued, provided IV Lasix, and required Risperidone IV Haldol. In your clinical opinion is this patient being managed for: ( s ) Metabolic/Septic encephalopathy ( ) Not Agree ( ) Other explanation of clinical findings (Please Explain) ( ) Unable to determine (Please Define) ( ) Need to Discuss The medical record reflects the following clinical findings, treatment, and risk factors. Clinical Indicators: As above Treatment: IV Lasix, supplemental O2, IV antibiotics, ABG Risk Factors: Hypoxia, respiratory alkalosis, acute diastolic CHF, UTI, sepsis Please clarify and document your clinical opinion in the progress notes and discharge summary. Terms such as "probable", "suspected", "likely", "questionable", "possible", or "still to be ruled out" are acceptable. IF IN AGREEMENT, YOU MUST DOCUMENT ABOVE DIAGNOSTIC STATEMENT IN DAILY PROGRESS NOTES AND DISCHARGE SUMMARY. This document is not part of the patient's record. Thank You, John Jade, RN [phone]
--- NOTE | 2017-07-20 06:58 | DIAGNOSTIC IMAGING REPORT ---
CHEST ONE VIEW PORTABLE CLINICAL HISTORY: 87 years-old Male presenting with chest pain. TECHNIQUE: Portable upright AP view of the chest was obtained. COMPARISON: 07/18/2017. FINDINGS: Right internal jugular Mediport terminates in the mid SVC. Atherosclerosis of the aortic arch. Cardiac silhouette mildly enlarged. Pulmonary vasculature mildly enlarged. Mildly low lung volumes with hypoventilatory changes. No focal infiltrate. No large effusion or pneumothorax. Osseous structures normal. Upper abdomen normal. IMPRESSION: 1. Mildly low lung volumes with hypoventilatory changes. 2. Suggestion of volume overload. No focal infiltrate to suggest pneumonia. Electronically signed by: Ariel Lamb M.D. 07/20/2017 6:56 AM Dictated Date/Time: 07/20/2017 6:55 AM
[2017-07-20] MEDS: METOPROLOL TARTRATE 25 MG TAB PO SCH (08:42)
[2017-07-20] MEDS: POLYETHYLENE (MIRALAX) 17 GM PACK PO SCH (08:42)
[2017-07-20] MEDS: CEROVITE ADV FORMULA TAB PO SCH ×2 (08:42→20:32)
[2017-07-20] MEDS: ASPIRIN 81 MG ECTAB PO SCH (08:42)
[2017-07-20] MEDS: FUROSEMIDE INJ 40 MG in SYRINGE 0 ML IV SCH (08:44)
[2017-07-20] MEDS ORDERED: AZITHROMYCIN IV 500 MG in DEXTROSE 5% 250ML 250 ML IV SCH (09:00)
[2017-07-20] MEDS ORDERED: METOPROLOL TARTRATE 1 MG/ML VIAL ONE ×2 (09:51→12:02)
[2017-07-20] MEDS ORDERED: NURSING VERBAL MED ORDER ONE (10:00)
--- NOTE | 2017-07-20 11:21 | Progress Note ---
Internal Med Progress Note Date of Service: Jul 20, 2017. Provider Documentation: Subjective: Patient was monitored in the ICU overnight as there was concern for respiratory distress and monitoring. Patient sent to ICU with BIPAP and overnight transitioned off BIPAP to Oxymask and Nasal Cannula Physical Exam: General: awake, speaking, cooperative on exam to lean forward for lung auscultation Lungs: no wheezing, no crackles, on nasal cannula Heart: tachycardic to 110 during exam in ICU Blood pressure: systolic of high 90s Abdomen: truncal obesity, soft, nontender Extremities: left foot erythema still present compared to yesterday ASSESSMENT & PLAN: 87 year old M with recent October 2016 for UTI/ sepsis and known severe aortic stenosis again being treated for similar symptoms with concern for further respiratory complications from UTI /sepsis and transferred to ICU for closer respiratory monitoring Problems Lists Neuro Mental status with some episodes of delirium likely due to UTI and sepsis and hypoxia (metabolic encephalopathy) Infectious workup -Urine culture from 07/18/17: Pansensitive E.coli Urine culture from 07/18/17: Pansensitive E.coli and been receiving Vancomycin and Zosyn, likely can de- escalte antibiotics for UTI unless another source of infection -Blood cultures from 07/18/17: no growth to date -preliminary left foot imaging without evidence of osteomyelitis Cardiovascular -Troponin peaked to 0.225 before downtrending -Echocardiogram * Ejection Fraction = 60-65%. * There is moderate concentric left ventricular hypertrophy. * The aortic valve is severely calcified. * There is severe calcific aortic valve stenosis. * Calcified mitral apparatus. * There is moderate mitral stenosis. * There is mild mitral regurgitation. * Mild aortic root dilatation. * Mildly dilated ascending aorta -Cardiovascular 07/19/17 note: critical aortic stenosis and acute decompensated heart failure related to valvular heart disease; History of paroxysmal atrial fibrillation with the current telemetry demonstrating sinus rhythm, frequent premature atrial contractions, runs of paroxysmal supraventricular tachycardia as well as premature ventricular contractions. -Beta blockers and diuretics as per cardiology service Respiratory -Hypoxia secondary to decompensated heart failure, sepsis syndrome -CTA: There is a normal caliber thoracic aorta with no evidence for dissection. There is no evidence for pulmonary embolus. No pleural effusions. No pneumothorax. The liver and spleen are unremarkable. No mediastinal or hilar lymphadenopathy. The central airways are patent. The lungs are clear / Renal Previous October 2016 hospitalization for UTI/sepsis chronic beebe Acute renal insufficiency superimposed on chronic kidney disease related to sepsis Urine culture from 07/18/17: Pansensitive E.coli and been receiving Vancomycin and Zosyn, likely can de-escalte antibiotics for UTI unless another source of infection CT abdomen: Lung bases are clear. Liver spleen and pancreas are unremarkable. There is considerable atherosclerotic change abdominal and pelvic arterial vasculature. Moderate cortical scarring of the kidneys is present. No evidence for hydronephrosis. Bowel pattern overall is nonobstructive. There is no significant abdominal or pelvic adenopathy. A Beebe catheter is present within the bladder. Lower extremities -Ultrasound: No DVT within the right or left lower extremity -Left foot X ray: Moderate generalized degenerative change. Mild soft tissue edema. No evidence for radiopaque foreign body Endocrine oral Synthroid for history of hypothyroidism is patient can swallow pills comfortably Disposition: pending further evaluation from critical care ICU team DVT Prophylaxis: switch Lovenox to Heparin subcut due to renal function FULL CODE Vital Signs: Date Time Temp Pulse Resp B/P (MAP) Pulse Ox O2 Delivery O2 Flow Rate FiO2 07/20/17 10:00 37.4 112 20 97/64 (75) 97 Nasal Cannula 4.0 07/20/17 09:53 87 93/52 07/20/17 08:00 Nasal Cannula 4.0 07/20/17 08:00 37.5 91 20 113/60 (77) 95 Nasal Cannula 4.0 07/20/17 06:30 95 Oxymask 3.0 07/20/17 05:33 38.2 101 20 116/77 (90) 99 Oxymask 6.0 07/20/17 04:00 95 BiPAP 40 07/20/17 03:52 91 22 123/56 (78) 96 BiPAP 5.0 40 07/20/17 01:57 37.8 95 24 104/62 (76) 95 BiPAP 40 07/20/17 00:00 93 BiPAP 40 07/19/17 23:53 38.2 96 22 115/70 (85) 94 BiPAP 40 07/19/17 22:00 97 94 5.0 07/19/17 21:26 38.8 100 25 102/62 (75) 93 BiPAP 5.0 40 07/19/17 20:00 94 BiPAP 40 07/19/17 19:39 39.2 101 24 109/64 (79) 94 BiPAP 40 07/19/17 18:34 94 98 5.0 07/19/17 16:00 Mask 07/19/17 15:08 37.3 95 22 135/80 (98) 100 Oxymask 5.0 07/19/17 12:00 BiPAP Lab Results: Results Past 24 Hours Test 07/19/17 15:37 07/19/17 15:57 07/19/17 18:19 07/19/17 19:32 Range/Units Troponin I 0.217 0-0.045 ng/ml Bedside Glucose 165 143 151 70-99 mg/dl Test 07/19/17 21:24 07/20/17 00:20 07/20/17 03:46 07/20/17 05:25 Range/Units Troponin I 0.225 0.156 0-0.045 ng/ml Bedside Glucose 162 149 70-99 mg/dl White Blood Count 10.44 4.8-10.8 K/uL Red Blood Count 3.47 4.7-6.1 M/uL Hemoglobin 11.1 14.0-18.0 g/dL Hematocrit 33.9 42-52 % Mean Corpuscular Volume 97.7 80-100 fL Mean Corpuscular Hemoglobin 32.0 25-34 pg Mean Corpuscular Hemoglobin Concent 32.7 32-36 g/dl Platelet Count 94 130-400 K/uL Mean Platelet Volume 9.3 7.4-10.4 fL Neutrophils (%) (Auto) 69.7 % Lymphocytes (%) (Auto) 18.0 % Monocytes (%) (Auto) 10.2 % Eosinophils (%) (Auto) 0.8 % Basophils (%) (Auto) 0.4 % Neutrophils # (Auto) 7.28 1.4-6.5 K/uL Lymphocytes # (Auto) 1.88 1.2-3.4 K/uL Monocytes # (Auto) 1.07 0.11-0.59 K/uL Eosinophils # (Auto) 0.08 0-0.5 K/uL Basophils # (Auto) 0.04 0-0.2 K/uL RDW Standard Deviation 50.0 36.4-46.3 fL RDW Coefficient of Variation 13.9 11.5-14.5 % Immature Granulocyte % (Auto) 0.9 % Immature Granulocyte # (Auto) 0.09 0.00-0.02 K/uL Sodium Level 139 136-145 mmol/L Potassium Level 3.7 3.5-5.1 mmol/L Chloride Level 102 98-107 mmol/L Carbon Dioxide Level 27 21-32 mmol/L Anion Gap 10.0 3-11 mmol/L Blood Urea Nitrogen 29 7-18 mg/dl Creatinine 1.46 0.60-1.40 mg/dl Est Creatinine Clear Calc Drug Dose 45.5 ml/min Estimated GFR () 49.8 Estimated GFR (Non- 42.9 BUN/Creatinine Ratio 19.9 10-20 Random Glucose 164 70-99 mg/dl Calcium Level 9.0 8.5-10.1 mg/dl Test 07/20/17 09:34 07/20/17 11:36 Range/Units Troponin I 0.140 0-0.045 ng/ml Microbiology Results 07/19/17 MRSA DNA Surveillance Screen - Final, Complete Specimen Positive for MRSA by DNA Probe
--- NOTE | 2017-07-20 11:35 | CARDIOLOGY PROGRESS NOTE ---
DATE: 07/20/2017 SUBJECTIVE: The patient is seen and examined at the bedside. He is sitting up on nasal cannula. BiPAP discontinued. He converted to atrial fibrillation with rapid ventricular response this morning. He is unaware of his heart rate. He also developed left lower extremity erythema with mild edema suggestive of cellulitis. Fevers recorded overnight. The patient is receiving diuretic therapy with adequate urinary response. His respiratory status appears stable. He denies chest discomfort or palpitations. Family present at bedside. REVIEW OF SYSTEMS: The pertinent positives are noted above. The patient is confused, poor historian, 4-system review including cardiovascular, pulmonary, gastroenterology, musculoskeletal systems is otherwise negative. MEDICATIONS: Reviewed via EMR. Please see list for details. Telemetry demonstrates atrial fibrillation with a rapid ventricular response, heart rate of 120-130 beats per minute. LABORATORY DATA: White blood cell count 10.44, hemoglobin is 11.1, platelet count is 94,000. Sodium 139, potassium 3.7, chloride 102, CO2 is 27, BUN is 29, creatinine is 1.47. Troponins are this morning 0.140. Venous duplex on admission is negative for DVT. Foot x-ray performed yesterday demonstrates moderate soft tissue edema, no foreign body. PHYSICAL EXAMINATION: VITAL SIGNS: T-max 38.2 degrees centigrade. Current temperature 37.4 degrees centigrade, pulse 115 beats per minute and irregular, blood pressure 97/64, SaO2 97% on 4 liters. GENERAL: NAD, awake, alert. He is confused. Obese. HEENT: Mucous membranes moist. No scleral icterus, nasal cannula in place. NECK: Supple without JVD in upright position. HEART: Irregular and tachycardic with a 2/6 systolic ejection murmur heard best at the base. The murmur is late peaking. LUNGS: Demonstrate coarse breath sounds bilaterally, no wheezing. No rales appreciated. ABDOMEN: Obese and nontender. No rebound or guarding. EXTREMITIES: Demonstrate +1 left lower extremity edema with associated erythema. NEUROLOGIC: No focal deficit. FINAL IMPRESSION: 1. An 87-year-old male with urosepsis attributed to Escherichia coli as well as new onset left lower extremity cellulitis. 2. Acute decompensated heart failure secondary to critical aortic stenosis. 3. Paroxysmal atrial fibrillation with a rapid ventricular response. 4. Respiratory insufficiency with a transient BiPAP secondary to decompensated heart failure and sepsis syndrome. 5. Delirium secondary to hypoxia, sepsis, heart failure. 6. Mild thrombocytopenia. 7. Chart history of contraindications to long-term anticoagulation. PLAN AND RECOMMENDATIONS: Recommend continued conservative medical management. We will begin intravenous Lopressor 5 mg every 6 hours to improve rate control with transition to oral medication as tolerated. Continue aspirin 81 mg daily and diuretic therapy to maintain a negative fluid balance. Antibiotics and supportive care as per critical care medicine. Overall, the patient's prognosis is poor with acute decompensated heart failure in the setting of critical aortic stenosis. I will continue to follow during hospitalization. ALANNA
[2017-07-20] MEDS ORDERED: POTASSIUM CHLORIDE 20 MEQ/15 ML UDC PO ONE (12:00)
[2017-07-20] MEDS: VANCOMYCIN INJ 1,500 MG in SODIUM CHLORIDE 0.9% 500ML 500 ML IV SCH (12:02)
[2017-07-20] MEDS: METOPROLOL TARTRATE 1 MG/ML VIAL IV. SCH ×3 (12:03→23:48)
[2017-07-20] MEDS: POTASSIUM CHLR 10MEQ / WTR IV SCH ×2 (12:03→13:12)
--- NOTE | 2017-07-20 14:56 | Critical Care Progress Note ---
Critical Care Progress Note Date of Service Jul 20, 2017. ICU Day ICU Day Number: [address] Wong Subjective Found patient sitting up with family, conversing lucidly and answering questions. Denies any pain anywhere, including left foot or ankle. Says beebe cath change was uncomfortable, otherwise no acute patient concerns. Objective General appearance: Sitting up, conversational, answering questions appropriately, appears in NAD. Knows name, month and year, but not location. Head: NCAT. EOMI bilaterally. Dry oral mucous membranes. Neck: Supple. Respiratory: Occasional expiratory wheezing with minimal bibasilar crackles. No present respiratory distress. Cardiovascular: +S1S2 mostly regular, positive 2/6 systolic murmur. Abdomen: + bowel sounds, soft, non-tender, non-distended. Obese habitus. Upper extremities: No distal edema. Lower extremities: Left foot erythema and warmth up to ankle. Approx one cm dark chronic wound on pad of left foot. Bilateral 2+ edema. Neuro: CN II-XII grossly intact. Moving all extremities easily. Assessment & Plan 87 year old male with PMH aortic stenosis, permanent a-fib, treated lymphoma, DM2, and chronic beebe catheter was admitted on 10Feb for fever, chills, shortness of breath, and LLE cellulitis. SECURITY OFFICER: CAM positive, likely secondary to hypoxia and sepsis, but improving. - Monitor mental status. Pulmonary: Respiratory insufficiency secondary to decompensated heart failure and sepsis. On/off BiPAP with transition to NC. 11Feb CTA chest no PE or effusions and noted clear lungs via imaging. - Oxygen to maintain SpO2 over 92%. CVS: 11Feb echo noted severe aortic stenosis, moderate MS, mild MR, moderate concentric LVH, EF 60-65%. Reportedly patient previously declined TAVR for his severe . Hx permanent afib. EKG notes PACs. Monitor also multifocal PVCs with tachycardia (afib with RVR). TnI trending downwards. - Lopressor 5 mg IV q6h. Transition to oral as tolerated. Cardiology onboard. ID: Urosepsis (febrile, tachycardia) and LLE cellulitis. 10Feb BCx x 2 no growth to date. 10Feb UCx grew E coli. - Stopped azithromycin. On Vancomycin, zosyn, and doxycycline. - Checking for mycoplasma and legionella as additional possible pulm source ( given hx of hypoxia). Endo: Glucose here okay. TSH here okay. - Will tighten glucose goal range. - On home synthroid. Renal/metabolic: 11Feb CT abdomen noted no hydronephrosis. ROSA here (Cr up to 1.46, prior 0.95 in October2016). - Beebe cath in place, changed out on 12Feb. Monitoring UOP and Cr. - Lasix to 40 q AM with goal of negative fluid balance. Replacing KCl via PO & IV. GI: Advanced to DM2 + AHA diet, mechanical soft and thin liquid, with 1800 mL fluid restriction. Heme: Mild thrombocytopenia here. Hx of same back in 2014. - Monitoring. Skin: LLE erythema and edema c/w cellulitis. 12Feb bilateral LE u/s noted no DVT. Question of left foot lesion being possible osteomyelitis. No gross FB seen on foot XR (though pulse ox obscuring image). - See ID above. - Ordered CT foot for further eval for osteo. Lines: Left forearm PIV x 2. Code status: Technically still full code, but needs discussion given heart status. Per family, may have started on DNR paperwork in past. Per patient, is interested in DNR overall. DVT prophy: Stopped Lovenox. Started Heparin q8h. PT/OT consult: Not yet. Disposition: Planned transfer to telemetry status. Resident Physician Supervision Note: Dr. Hart was resident physician during care of patient. I separately evaluated patient and did history and exam. I discussed the case with the resident and generally agree with the findings and plan. During my evaluation the patient was found to have a worsening cellulitis of the left lower extremity. We have obtained a CT scan to exclude any evidence of bony destruction. At this point I feel it is most likely a soft tissue infection. We will continue vancomycin, Doxy, Zosyn for pseudomonal coverage. Our goal is to have the patient remain with a negative fluid balance. Discussed the case with cardiology. We have instituted metoprolol IV which has achieved adequate rate control and the patient and feel he is stable for downgraded out of the ICU. Documented By: John Wong DO Consults & Procedures Consultants: Cardiology (Dr. Sheridan) Data Medications: Current Inpatient Medications Medications (Trade) Dose Ordered Sig/Robert Route Start Time Stop Time Status Last Admin Dose Admin Ondansetron HCl (Zofran Inj) 4 mg Q6H PRN IV 07/18/17 14:15 08/17/17 14:14 Glucose (Glucose 40% Gel) 15-30 GRAMS 15 GRAMS... UD PRN PO 07/18/17 14:15 08/17/17 14:14 Glucose (Glucose Chew Tab) 4-8 Tablets 4 Tabl... UD PRN PO 07/18/17 14:15 08/17/17 14:14 Dextrose (Dextrose 50% 50ML Syringe) 25-50ML OF 50% DW IV FOR... UD PRN IV 07/18/17 14:15 08/17/17 14:14 Glucagon (Glucagon Inj) 1 mg UD PRN SQ 07/18/17 14:15 08/17/17 14:14 Aspirin (Ecotrin Tab) 81 mg QAM PO 07/19/17 09:00 08/18/17 08:59 Levothyroxine Sodium (Synthroid Tab) 176 mcg DAILYBB PO 07/19/17 06:00 08/18/17 05:59 07/19/17 05:35 176 MCG Multivitamins/ Minerals (Multivitamin W/ Minerals Tab) 1 tab BID PO 07/18/17 21:00 08/17/17 20:59 07/18/17 20:20 1 TAB Risperidone (Risperdal Tab) 0.5 mg Q12 PRN PO 07/18/17 14:15 08/17/17 14:14 Simvastatin (Zocor Tab) 40 mg HS PO 07/18/17 21:00 08/17/17 20:59 07/18/17 20:21 40 MG Polyethylene (Miralax Powder Packet) 17 gm QAM PO 07/19/17 09:00 08/18/17 08:59 Insulin Aspart (novoLOG ASPART) SLIDING SCALE G... ACHS SC 07/18/17 16:15 08/17/17 16:14 07/20/17 13:13 4 UNITS Miscellaneous Information (Consult) 1 ea DAILY PRN N/A 07/19/17 00:32 08/18/17 00:31 Piperacillin Sod/ Tazobactam Sod 4.5 gm/Dextrose 70 ml @ 17.5 mls/hr Q8 IV 07/19/17 06:00 07/26/17 05:59 07/20/17 14:42 17.5 MLS/HR Miscellaneous Information (Consult) 1 ea UD PRN N/A 07/19/17 01:00 08/18/17 00:59 Acetaminophen 650 mg/Empty Bag 65 ml @ 260 mls/hr Q6H PRN IV 07/19/17 07:15 08/18/17 07:14 07/20/17 05:33 260 MLS/HR Metoprolol Tartrate (Lopressor Tab) 12.5 mg BID PO 07/19/17 21:00 08/18/17 20:59 Future Hold Vancomycin HCl 1500 mg/Sodium Chloride 530 ml @ 200 mls/hr Q18H IV 07/19/17 16:00 07/26/17 15:59 07/20/17 12:02 200 MLS/HR Ioversol (Optiray 320) 100 ml UD PRN IV 07/19/17 12:15 07/23/17 12:14 Metoprolol Tartrate (Lopressor Iv) 5 mg Q6 IV. 07/20/17 12:00 08/19/17 11:59 07/20/17 12:03 5 MG Furosemide 40 mg/ Syringe 4 ml @ 4 mls/min QAM IV 07/21/17 09:00 08/20/17 08:59 Heparin Sodium (Porcine) (Heparin Sq 5000 Unit/0.5ml) 5,000 unit Q8 SQ 07/20/17 22:00 08/19/17 21:59 Doxycycline Hyclate 100 mg/ Dextrose 110 ml @ 55 mls/hr Q12 IV 07/21/17 09:00 07/28/17 08:59 Vital Signs: Date Time Temp Pulse Resp B/P (MAP) Pulse Ox O2 Delivery O2 Flow Rate FiO2 07/20/17 12:03 126 91/63 07/20/17 12:00 Nasal Cannula 4.0 07/20/17 12:00 116 20 100/67 (78) 91 Nasal Cannula 4.0 07/20/17 10:00 37.4 112 20 97/64 (75) 97 Nasal Cannula 4.0 07/20/17 09:53 87 93/52 07/20/17 08:00 Nasal Cannula 4.0 07/20/17 08:00 Oxymask 07/20/17 08:00 37.5 91 20 113/60 (77) 95 Nasal Cannula 4.0 07/20/17 06:30 95 Oxymask 3.0 07/20/17 05:33 38.2 101 20 116/77 (90) 99 Oxymask 6.0 07/20/17 04:00 95 BiPAP 40 07/20/17 03:52 91 22 123/56 (78) 96 BiPAP 5.0 40 07/20/17 01:57 37.8 95 24 104/62 (76) 95 BiPAP 40 07/20/17 00:00 93 BiPAP 40 07/19/17 23:53 38.2 96 22 115/70 (85) 94 BiPAP 40 07/19/17 22:00 97 94 5.0 07/19/17 21:26 38.8 100 25 102/62 (75) 93 BiPAP 5.0 40 07/19/17 20:00 94 BiPAP 40 07/19/17 19:39 39.2 101 24 109/64 (79) 94 BiPAP 40 07/19/17 18:34 94 98 5.0 07/19/17 16:00 Mask 07/19/17 15:08 37.3 95 22 135/80 (98) 100 Oxymask 5.0 Laboratory Results: Last 24 Hours Test 07/19/17 15:37 07/19/17 15:57 07/19/17 18:19 07/19/17 19:32 Troponin I 0.217 ng/ml Bedside Glucose 165 mg/dl 143 mg/dl 151 mg/dl Test 07/19/17 21:24 07/20/17 00:20 07/20/17 03:46 07/20/17 05:25 Troponin I 0.225 ng/ml 0.156 ng/ml Bedside Glucose 162 mg/dl 149 mg/dl White Blood Count 10.44 K/uL Red Blood Count 3.47 M/uL Hemoglobin 11.1 g/dL Hematocrit 33.9 % Mean Corpuscular Volume 97.7 fL Mean Corpuscular Hemoglobin 32.0 pg Mean Corpuscular Hemoglobin Concent 32.7 g/dl Platelet Count 94 K/uL Mean Platelet Volume 9.3 fL Neutrophils (%) (Auto) 69.7 % Lymphocytes (%) (Auto) 18.0 % Monocytes (%) (Auto) 10.2 % Eosinophils (%) (Auto) 0.8 % Basophils (%) (Auto) 0.4 % Neutrophils # (Auto) 7.28 K/uL Lymphocytes # (Auto) 1.88 K/uL Monocytes # (Auto) 1.07 K/uL Eosinophils # (Auto) 0.08 K/uL Basophils # (Auto) 0.04 K/uL RDW Standard Deviation 50.0 fL RDW Coefficient of Variation 13.9 % Immature Granulocyte % (Auto) 0.9 % Immature Granulocyte # (Auto) 0.09 K/uL Sodium Level 139 mmol/L Potassium Level 3.7 mmol/L Chloride Level 102 mmol/L Carbon Dioxide Level 27 mmol/L Anion Gap 10.0 mmol/L Blood Urea Nitrogen 29 mg/dl Creatinine 1.46 mg/dl Est Creatinine Clear Calc Drug Dose 45.5 ml/min Estimated GFR () 49.8 Estimated GFR (Non- 42.9 BUN/Creatinine Ratio 19.9 Random Glucose 164 mg/dl Calcium Level 9.0 mg/dl Test 07/20/17 09:34 07/20/17 11:52 07/20/17 12:11 Troponin I 0.140 ng/ml Bedside Glucose 179 mg/dl Resident Tracking Resident Involvement: Resident Care Provided Care Provided: Adult Hospital Medicine (ICU care)
--- NOTE | 2017-07-20 17:22 | DIAGNOSTIC IMAGING REPORT ---
L LOWER EXTREMITY WITHOUT CT DOSE: 209.04 mGy.cm HISTORY: Infection eval for foot osteo TECHNIQUE: Multiaxial CT images of the left foot were performed and reformatted in the sagittal and coronal plane without the use of contrast. A dose lowering technique was utilized adhering to the principles of ALARA. COMPARISON: None. FINDINGS: Generalized soft tissue edema. Primarily is in the subcutaneous fat and predominates in the region of the ankle and proximal to mid foot. There is mild degenerative change of the osseous structures throughout. There is no lytic or blastic process. There are no destructive bony changes. All cortical margins appear to be intact. No evidence for osteomyelitis based on this exam. No evidence for drainable abscess or collection. IMPRESSION: 1. Considerable soft tissue edematous change suggesting a diffuse cellulitis. 3. No evidence for drainable abscess or collection. 2. No evidence for osteomyelitis. The above report was generated using voice recognition software. It may contain grammatical, syntax or spelling errors. Electronically signed by: Get Escalante M.D. 07/20/2017 5:21 PM Dictated Date/Time: 07/20/2017 5:17 PM
[2017-07-20] MEDS: SIMVASTATIN 40 MG TAB PO SCH (20:33)
[2017-07-20] MEDS: HEPARIN SOD 5000 UNIT/0.5 ML CARP SQ SCH (22:00)
[2017-07-21] VITALS (7 sets, daily range): BP systolic 96–148; BP diastolic 51–76; PULSE 90–111; TEMP 37.1–39; O2SAT 80–98
[2017-07-21] MEDS ORDERED: VANCOMYCIN TROUGH ONE (03:30)
[2017-07-21] MEDS: VANCOMYCIN INJ 1,500 MG in SODIUM CHLORIDE 0.9% 500ML 500 ML IV SCH (03:32)
[2017-07-21 03:34] LABS: HEMATOCRIT 32.7 % (42-52); HEMOGLOBIN 10.7 g/dL (14.0-18.0); MEAN CELL VOLUME 97.9 fL (80-100); MEAN CORPUSCULAR HGB CONC 32.7 g/dl (32-36); RED CELL DISTRIBUTION WIDTH CV 13.5 % (11.5-14.5); RED CELL DISTRIBUTION WIDTH SD 48.6 fL (36.4-46.3); WHITE BLOOD COUNT 10.62 K/uL (4.8-10.8)
[2017-07-21 03:52] LABS: CREATININE 1.52 mg/dl (0.60-1.40)
[2017-07-21 04:07] LABS: MEAN PLATELET VOLUME 8.8 fL (7.4-10.4); PLATELET COUNT 97 K/uL (130-400)
[2017-07-21] MEDS: METOPROLOL TARTRATE 1 MG/ML VIAL IV. SCH (06:00)
[2017-07-21] MEDS: LEVOTHYROXINE 88 MCG TAB PO SCH (06:00)
[2017-07-21] MEDS: HEPARIN SOD 5000 UNIT/0.5 ML CARP SQ SCH ×3 (06:01→23:04)
[2017-07-21] MEDS: PIPERACILL/TAZOBAC IV 4.5 GM in DEXTROSE 5% 50ML 50 ML IV SCH (06:19)
[2017-07-21] MEDS: INSULIN ASPART 100 UNITS/ML 3 ML PEN SC SCH ×4 (06:45→21:00)
[2017-07-21] MEDS ORDERED: FUROSEMIDE INJ 40 MG in SYRINGE 0 ML IV SCH (09:00)
[2017-07-21] MEDS: POLYETHYLENE (MIRALAX) 17 GM PACK PO SCH (09:36)
[2017-07-21] MEDS: CEROVITE ADV FORMULA TAB PO SCH ×2 (09:36→20:05)
[2017-07-21] MEDS: ASPIRIN 81 MG ECTAB PO SCH (09:36)
[2017-07-21] MEDS: DOXYCYCLINE HYCLATE 100 MG in DEXTROSE 5% 100ML IV SCH ×2 (09:36→21:56)
--- NOTE | 2017-07-21 12:44 | Cardiology Follow-Up ---
Subjective General Date of Service: Jul 21, 2017. Pt evaluation today including: conversation w/ patient, conversation w/ family , physical exam, chart review, lab review, review of studies, review of inpatient medication list History of Present Illness The patient is a 87 year old male seen in follow-up. Patient looks much better today. More alert sitting in a chair at bedside. Converted to sinus rhythm with frequent PACs Denies chest pain or shortness of breath. Offers no other complaints this time. Allergies Coded Allergies: Baclofen (Verified Allergy, Intermediate, HIVES, 07/18/17) Sulfamethoxazole w/Trimethoprim (Verified Allergy, Mild, rash per PCP records , 07/18/17) Social History Smoking Status: Unknown if Ever Smoked Hx Tobacco Use In Past Year?: Yes Hx Alcohol Use - Type And Amou: No Hx Substance Use - Type And Am: No Problem List Medical Problems: (1) Acute bronchitis Status: Acute (2) Bronchitis Status: Acute (3) Confusion Status: Acute (4) Elevated troponin Status: Acute (5) Fever Status: Acute (6) Urinary tract infection associated with indwelling urethralcatheter Status: Acute (7) UTI (urinary tract infection) Status: Acute (8) UTI (urinary tract infection) Status: Acute (9) UTI (urinary tract infection) Status: Acute (10) UTI (urinary tract infection) Status: Acute Review of Systems Respiratory: + cough, + dyspnea on exertion, No sputum, No wheezing, No shortness of breath, No dyspnea at rest Cardiac: + edema, No chest pain, No orthopnea, No PND, No claudication, No palpitations Physical Exam Vital Signs Last Vital Signs Documentation Date Time Temp Pulse Resp B/P (MAP) Pulse Ox O2 Delivery O2 Flow Rate FiO2 07/21/17 08:00 95 Room Air 07/21/17 08:00 37.1 90 22 131/62 (85) 07/21/17 04:00 2.0 07/20/17 04:00 40 Physical Exam Constitutional: General Apperance: obese Level of Distress: NAD Head: normocephalic, atraumatic Lungs: Auscultation: no wheezing, no rales/crackles, no rhonchi Cardiovascular: Heart Auscultation: II/ DAVID, irregular rate rhythm Abdomen: Bowel Sounds: normal Inspection & Palpation: soft, non-distended, no masses Liver: non-tender Extremities: no cyanosis, no clubbing, no ulcers, edema Neurologic: Cranial Nerves: grossly intact Assessment and Plan Assessment and Plan FINAL IMPRESSION: 1. An 87-year-old male with sepsis attributed to Escherichia coli UTI and left lower extremity cellulitis. 2. Acute decompensated heart failure secondary to critical aortic stenosis. -improving clinically however, creatinine trending upward on IV diuretic therapy. 3. Paroxysmal atrial fibrillation with a rapid ventricular response. -Spontaneously converted to sinus rhythm with frequent PACs 4. Respiratory insufficiency with a transient BiPAP secondary to decompensated heart failure and sepsis syndrome. 5. Delirium secondary to hypoxia, sepsis, heart failure. -mental status improved 6. Mild thrombocytopenia. 7. Chart history of contraindications to long-term anticoagulation. PLAN AND RECOMMENDATIONS: Discontinue IV Lasix. Begin Lasix 40 mg PO daily starting tomorrow. Repeat BMP in a.m. Transition IV Lopressor back to oral metoprolol. Antibiotics and supportive care as per critical care medicine. Overall, the patient's prognosis is poor with acute decompensated heart failure in the setting of critical aortic stenosis. Laboratory Results Last 24 Hours Test 07/20/17 16:28 07/20/17 20:31 07/21/17 03:23 Bedside Glucose 185 mg/dl 146 mg/dl White Blood Count 10.62 K/uL Red Blood Count 3.34 M/uL Hemoglobin 10.7 g/dL Hematocrit 32.7 % Mean Corpuscular Volume 97.9 fL Mean Corpuscular Hemoglobin 32.0 pg Mean Corpuscular Hemoglobin Concent 32.7 g/dl RDW Standard Deviation 48.6 fL RDW Coefficient of Variation 13.5 % Platelet Count 97 K/uL Mean Platelet Volume 8.8 fL Platelet Estimate DECREASED Creatinine 1.52 mg/dl Est Creatinine Clear Calc Drug Dose 43.4 ml/min Estimated GFR () 47.4 Estimated GFR (Non- 40.9 Vancomycin Level Trough 19.5 mcg/ml
[2017-07-21] MEDS: PIPERACILL/TAZOBAC IV 4.5 GM in DEXTROSE 5% 100ML 100 ML IV SCH (12:47)
--- NOTE | 2017-07-21 14:46 | Pharmacy Progress Note ---
Pharmacy Antibiotic Prog Note Date of Service Jul 21, 2017. Subjective The patient is currently receiving vancomycin 1500 mg IV every 18 hours. The patient is currently on day # 3 of vancomycin IV therapy. Objective Height (Feet): 5 Height (Inches): 9.00 Weight (Kilograms): 114.200 Lab Results (24hrs): Test 07/20/17 16:28 07/20/17 20:31 07/21/17 03:23 Bedside Glucose 185 mg/dl (70-99) 146 mg/dl (70-99) White Blood Count 10.62 K/uL (4.8-10.8) Red Blood Count 3.34 M/uL (4.7-6.1) Hemoglobin 10.7 g/dL (14.0-18.0) Hematocrit 32.7 % (42-52) Mean Corpuscular Volume 97.9 fL (80-100) Mean Corpuscular Hemoglobin 32.0 pg (25-34) Mean Corpuscular Hemoglobin Concent 32.7 g/dl (32-36) RDW Standard Deviation 48.6 fL (36.4-46.3) RDW Coefficient of Variation 13.5 % (11.5-14.5) Platelet Count 97 K/uL (130-400) Mean Platelet Volume 8.8 fL (7.4-10.4) Platelet Estimate DECREASED Creatinine 1.52 mg/dl (0.60-1.40) Est Creatinine Clear Calc Drug Dose 43.4 ml/min Estimated GFR () 47.4 Estimated GFR (Non- 40.9 Vancomycin Level Trough 19.5 mcg/ml (SEE COMMENT) Assessment & Plan Assessment * 87 yo M admitted 07/19 with fever/chills, dyspnea on exertion with multiple sources for possible infection. Chronic indwelling urinary catheter as outpatient. * Possible sources of infection * Urine - growing montez-sensitive E. coli. * Pulmonary - O2 sat to 88% on admission. Nasal MRSA positive. Mycoplasma, Legionella serology pending * Cellulitis - red area on foot. CT with evidence for cellulitis but no evidence of abscess or osteomyelitis * Antibiotics * Zosyn 07/19-current * Vancomycin 07/19-current * Azithromycin 07/19-07/20 * Doxycycline 07/21-current * Renal * SCr continues to gradually worsen. Up to 1.52 mg/dL today. Baseline 1.16 mg /dL Vancomycin * Goal 15-20 mcg/mL * Trough of 19.5 mcg/mL is therapeutic. * Note: dose prior to level was admin 2 hr late. Thus this is a 16 hour ( rather than desired 18 hour) level. Would anticipate true trough to be lower. * Would normally decrease dose slightly 2nd worsening renal function. However, will continue as current 2nd persistent fever and falsely high level (see above) * Repeat trough in ~48 hours * Will obtain sooner if SCr continues to worsen Plan * Continue vancomycin 1500 mg IV q18h * Trough 07/23 @ 0930 (or sooner if renal function continues to worsen) Pharmacy will continue to follow and will adjust dose/frequency as necessary. Thank you
--- NOTE | 2017-07-21 17:32 | Progress Note ---
Subjective Date of Service: Jul 21, 2017. Subjective Pt evaluation today including: conversation w/ patient, conversation w/ family , physical exam, lab review, review of studies, conversation w/ [employer] identity management consultant, review of inpatient medication list Saw/examined the patient in room 102 He is confused, hallucinating. Not able to get an accurate history from him. Daughters and are at bedside. I spoke to them about the patient's condition. Is having runs of premature contractions consistently; he is confused, altered, Left lower extremity remains warm to touch. Daughter mentioned that patient has had a form signed in the past stating his wishes to remain DNR. Family agreeable to this. They are okay with continued antibiotic treatment but also are aware of his poor prognosis. Problem List Medical Problems: (1) Acute bronchitis Status: Acute (2) Bronchitis Status: Acute (3) Confusion Status: Acute (4) Elevated troponin Status: Acute (5) Fever Status: Acute (6) Urinary tract infection associated with indwelling urethralcatheter Status: Acute (7) UTI (urinary tract infection) Status: Acute (8) UTI (urinary tract infection) Status: Acute (9) UTI (urinary tract infection) Status: Acute (10) UTI (urinary tract infection) Status: Acute Medications Current Inpatient Medications Medications (Trade) Dose Ordered Sig/Robert Route Start Time Stop Time Status Last Admin Dose Admin Ondansetron HCl (Zofran Inj) 4 mg Q6H PRN IV 07/18/17 14:15 08/17/17 14:14 Glucose (Glucose 40% Gel) 15-30 GRAMS 15 GRAMS... UD PRN PO 07/18/17 14:15 08/17/17 14:14 Glucose (Glucose Chew Tab) 4-8 Tablets 4 Tabl... UD PRN PO 07/18/17 14:15 08/17/17 14:14 Dextrose (Dextrose 50% 50ML Syringe) 25-50ML OF 50% DW IV FOR... UD PRN IV 07/18/17 14:15 08/17/17 14:14 Glucagon (Glucagon Inj) 1 mg UD PRN SQ 07/18/17 14:15 08/17/17 14:14 Aspirin (Ecotrin Tab) 81 mg QAM PO 07/19/17 09:00 08/18/17 08:59 07/21/17 09:36 81 MG Levothyroxine Sodium (Synthroid Tab) 176 mcg DAILYBB PO 07/19/17 06:00 08/18/17 05:59 07/21/17 06:00 176 MCG Multivitamins/ Minerals (Multivitamin W/ Minerals Tab) 1 tab BID PO 07/18/17 21:00 08/17/17 20:59 07/21/17 09:36 1 TAB Risperidone (Risperdal Tab) 0.5 mg Q12 PRN PO 07/18/17 14:15 08/17/17 14:14 Simvastatin (Zocor Tab) 40 mg HS PO 07/18/17 21:00 08/17/17 20:59 07/20/17 20:33 40 MG Polyethylene (Miralax Powder Packet) 17 gm QAM PO 07/19/17 09:00 08/18/17 08:59 07/21/17 09:36 17 GM Insulin Aspart (novoLOG ASPART) SLIDING SCALE G... ACHS SC 07/18/17 16:15 08/17/17 16:14 07/21/17 12:49 7 UNITS Miscellaneous Information (Consult) 1 ea DAILY PRN N/A 07/19/17 00:32 08/18/17 00:31 Miscellaneous Information (Consult) 1 ea UD PRN N/A 07/19/17 01:00 08/18/17 00:59 Acetaminophen 650 mg/Empty Bag 65 ml @ 260 mls/hr Q6H PRN IV 07/19/17 07:15 08/18/17 07:14 07/20/17 21:07 260 MLS/HR Metoprolol Tartrate (Lopressor Tab) 12.5 mg BID PO 07/19/17 21:00 08/18/17 20:59 Future hold Vancomycin HCl 1500 mg/Sodium Chloride 530 ml @ 200 mls/hr Q18H IV 07/19/17 16:00 07/26/17 15:59 07/21/17 03:32 200 MLS/HR Ioversol (Optiray 320) 100 ml UD PRN IV 07/19/17 12:15 07/23/17 12:14 Heparin Sodium (Porcine) (Heparin Sq 5000 Unit/0.5ml) 5,000 unit Q8 SQ 07/20/17 22:00 3/14/18 21:59 07/21/17 14:21 5,000 UNIT Doxycycline Hyclate 100 mg/ Dextrose 110 ml @ 55 mls/hr Q12 IV 07/21/17 09:00 07/28/17 08:59 07/21/17 09:36 55 MLS/HR Piperacillin Sod/ Tazobactam Sod 4.5 gm/Dextrose 120 ml @ 30 mls/hr Q8 IV 07/21/17 14:00 07/26/17 05:59 07/21/17 12:47 30 MLS/HR Furosemide (Lasix Tab) 40 mg QAM PO 07/22/17 09:00 08/21/17 08:59 Potassium Chloride 20 meq/ Prmx 100 ml @ 50 mls/hr NOW STAT IV 07/21/17 16:58 07/21/17 18:57 UNV Magnesium Sulfate 2 gm/Prmx 100 ml @ 100 mls/hr NOW STAT IV 07/21/17 16:58 07/21/17 17:57 UNV Objective Vital Signs Date Time Temp Pulse Resp B/P (MAP) Pulse Ox O2 Delivery O2 Flow Rate FiO2 07/21/17 12:00 37.1 94 22 111/51 (71) 92 Nasal Cannula 2.0 07/21/17 12:00 95 Room Air 07/21/17 08:00 95 Room Air 07/21/17 08:00 37.1 90 22 131/62 (85) 98 Room Air 07/21/17 06:00 99 07/21/17 04:00 Nasal Cannula 2.0 07/21/17 03:37 37.7 96 26 131/62 (85) 97 Nasal Cannula 2.0 07/21/17 00:00 Nasal Cannula 2.0 07/20/17 23:48 92 07/20/17 23:28 38.0 90 26 103/66 (78) 94 Nasal Cannula 2.0 07/20/17 20:30 39.0 94 32 128/78 (95) 97 Nasal Cannula 2.0 07/20/17 20:00 Nasal Cannula 2.0 07/20/17 17:23 97 102/56 Physical Exam General Appearance: + obese, + pertinent finding (patient is confused, lethargic, unable to communicate properly, hallucinating.) Respiratory/Chest: no respiratory distress, no accessory muscle use, + decreased breath sounds Cardiovascular: + tachycardia, + systolic murmur, + irregularly irregular Abdomen: normal bowel sounds, non tender, soft Extremities: + swelling (LLE), + pertinent finding (LLE warm to touch, erythematousl, L heel with optifoam) Neurologic/Psychiatric: + disoriented, + pertinent finding (+hallucinating) Laboratory Results Last 24 Hours Test 07/20/17 20:31 07/21/17 03:23 07/21/17 06:17 07/21/17 16:15 Bedside Glucose 146 mg/dl 150 mg/dl 154 mg/dl White Blood Count 10.62 K/uL Red Blood Count 3.34 M/uL Hemoglobin 10.7 g/dL Hematocrit 32.7 % Mean Corpuscular Volume 97.9 fL Mean Corpuscular Hemoglobin 32.0 pg Mean Corpuscular Hemoglobin Concent 32.7 g/dl RDW Standard Deviation 48.6 fL RDW Coefficient of Variation 13.5 % Platelet Count 97 K/uL Mean Platelet Volume 8.8 fL Platelet Estimate DECREASED Creatinine 1.52 mg/dl Est Creatinine Clear Calc Drug Dose 43.4 ml/min Estimated GFR () 47.4 Estimated GFR (Non- 40.9 Vancomycin Level Trough 19.5 mcg/ml Assessment and Plan This is an obese 87 year old male with a PMH of severe aortic stenosis, paroxysmal atrial fibrillation, hx. 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 He was subsequently transferred to the ICU due to worsening metabolic encephalopathy and acute respiratory failure. Metabolic Encephalopathy secondary to Complicated UTI in the setting of a Chronic Indwelling Catheter patient with worsening encephalopathy/delirium. currently on Vancomycin/Zosyn/Doxycycline regimen For now, we should continue this, will consult ID for further input. Left Lower Extremity Cellulitis left lower extremity CT performed - Considerable soft tissue edematous change suggesting a diffuse cellulitis warm to touch, erythematous leg Doppler suggested no acute DVT will continue abx; ID consulted Left Plantar Foot Wound appreciate wound care nurse input the wound is significant and may need debridement/surgical evaluation unfortunately, wound care physician is not in house will consult podiatry for further input Acute Hypoxic Respiratory Failure in the setting of Valvular Heart Disease patient meets hypoxic respiratory failure criteria - tachypnea; pulse ox <90% on RA CXR suggests volume overload; hx. of severe aortic stenosis patient worsened and was transferred from tele to ICU; placed on bipap now back on O2 via nasal cannula was on 40mg of IV Lasix, now switched to PO Lasix 40mg daily Paroxysmal Atrial Fibrillation with Rapid Ventricular Response has had issues with rapid ventricular response during this admission, likely worsened with infection IV Lopressor will be switched to PO b-wil has had multiple PVCs on monitor during exam will give Potassium and Magnesium and recheck these in AM DM2 hx. of diabetes, diet controlled last Ha1c ~ 6.6% BSGs on presentation elevated, given SQ regular insulin will add a sliding scale, check an Ha1c in AM Hypothyroidism continue Synthroid DVT ppx subq heparin DNR - as per discussion with family; family states these are patient wishes
[2017-07-21] MEDS: MAGNESIUM SULFATE 1GM / D5W 1 GM in PREMIXED IN D5W 100 ML IV SCH ×2 (20:03→23:02)
[2017-07-21] MEDS: METOPROLOL TARTRATE 25 MG TAB PO SCH (20:05)
[2017-07-21] MEDS: SIMVASTATIN 40 MG TAB PO SCH (20:05)
--- NOTE | 2017-07-21 20:08 | Podiatry Consultation ---
Podiatry Consultation Date of Consultation: Jul 21, 2017. Attending Physician: Darren Carlson DO Reason for Consultation: Left foot cellulitis and wound History of Present Illness This is an 87 yo male who was admitted for S&S of sepsis with concern of UTI as well as left foot wound and cellulitis and DM. My service was consulted regarding cellulitis and left foot wound with concern of abscess. To this point he has had a CT scan of the LE without signs of osteomyelitis and/or localized abscess. He is currently on broad spectrum antibiotics. He notes minimal pain to the left foot and cannot recall how long his wound has been present. He is lethargic and poor historian on historical interview. Past Medical/Surgical History Medical Problems: (1) Acute bronchitis Status: Acute (2) Bronchitis Status: Acute (3) Confusion Status: Acute (4) Elevated troponin Status: Acute (5) Fever Status: Acute (6) Urinary tract infection associated with indwelling urethralcatheter Status: Acute (7) UTI (urinary tract infection) Status: Acute (8) UTI (urinary tract infection) Status: Acute (9) UTI (urinary tract infection) Status: Acute (10) UTI (urinary tract infection) Status: Acute Family History Omitted due to age Social History Smoking Status: Unknown if Ever Smoked Drug Use: none Marital Status: Housing Status: lives with significant other Occupation Status: retired Allergies Coded Allergies: Baclofen (Verified Allergy, Intermediate, HIVES, 07/18/17) Sulfamethoxazole w/Trimethoprim (Verified Allergy, Mild, rash per PCP records , 07/18/17) Home Medications Scheduled Aspirin Enteric Coated (Ecotrin Or Generic), 81 MG PO QAM Furosemide (Lasix), 20 MG PO DAILY Levothyroxine Sodium (Synthroid), 2 TAB PO QAM Ocuvite Preservision (Ocuvite Preservision), 1 TAB PO BID Polyethylene Glycol 3350 (Miralax), 17 GM PO DAILY Simvastatin (Zocor), 40 MG PO HS Scheduled PRN Lidocaine-Prilocaine (Lidocaine/Prilocaine), 1 APPLN TOP UD PRN for Pain Risperidone (Risperidone), 0.5 MG PO Q12 PRN for agitation Current Inpatient Medications Current Inpatient Medications Medications (Trade) Dose Ordered Sig/Robert Route Start Time Stop Time Status Last Admin Dose Admin Ondansetron HCl (Zofran Inj) 4 mg Q6H PRN IV 07/18/17 14:15 08/17/17 14:14 Glucose (Glucose 40% Gel) 15-30 GRAMS 15 GRAMS... UD PRN PO 07/18/17 14:15 08/17/17 14:14 Glucose (Glucose Chew Tab) 4-8 Tablets 4 Tabl... UD PRN PO 07/18/17 14:15 08/17/17 14:14 Dextrose (Dextrose 50% 50ML Syringe) 25-50ML OF 50% DW IV FOR... UD PRN IV 07/18/17 14:15 08/17/17 14:14 Glucagon (Glucagon Inj) 1 mg UD PRN SQ 07/18/17 14:15 08/17/17 14:14 Aspirin (Ecotrin Tab) 81 mg QAM PO 07/19/17 09:00 08/18/17 08:59 07/21/17 09:36 81 MG Levothyroxine Sodium (Synthroid Tab) 176 mcg DAILYBB PO 07/19/17 06:00 08/18/17 05:59 07/21/17 06:00 176 MCG Multivitamins/ Minerals (Multivitamin W/ Minerals Tab) 1 tab BID PO 07/18/17 21:00 08/17/17 20:59 07/21/17 09:36 1 TAB Risperidone (Risperdal Tab) 0.5 mg Q12 PRN PO 07/18/17 14:15 08/17/17 14:14 Simvastatin (Zocor Tab) 40 mg HS PO 07/18/17 21:00 08/17/17 20:59 07/20/17 20:33 40 MG Polyethylene (Miralax Powder Packet) 17 gm QAM PO 07/19/17 09:00 08/18/17 08:59 07/21/17 09:36 17 GM Insulin Aspart (novoLOG ASPART) SLIDING SCALE G... ACHS SC 07/18/17 16:15 08/17/17 16:14 07/21/17 12:49 7 UNITS Miscellaneous Information (Consult) 1 ea DAILY PRN N/A 07/19/17 00:32 08/18/17 00:31 Miscellaneous Information (Consult) 1 ea UD PRN N/A 07/19/17 01:00 08/18/17 00:59 Acetaminophen 650 mg/Empty Bag 65 ml @ 260 mls/hr Q6H PRN IV 07/19/17 07:15 08/18/17 07:14 07/20/17 21:07 260 MLS/HR Metoprolol Tartrate (Lopressor Tab) 12.5 mg BID PO 07/19/17 21:00 08/18/17 20:59 Future hold Vancomycin HCl 1500 mg/Sodium Chloride 530 ml @ 200 mls/hr Q18H IV 07/19/17 16:00 07/26/17 15:59 07/21/17 03:32 200 MLS/HR Ioversol (Optiray 320) 100 ml UD PRN IV 07/19/17 12:15 07/23/17 12:14 Heparin Sodium (Porcine) (Heparin Sq 5000 Unit/0.5ml) 5,000 unit Q8 SQ 07/20/17 22:00 08/19/17 21:59 07/21/17 14:21 5,000 UNIT Doxycycline Hyclate 100 mg/ Dextrose 110 ml @ 55 mls/hr Q12 IV 07/21/17 09:00 07/28/17 08:59 07/21/17 09:36 55 MLS/HR Piperacillin Sod/ Tazobactam Sod 4.5 gm/Dextrose 120 ml @ 30 mls/hr Q8 IV 07/21/17 14:00 07/26/17 05:59 07/21/17 12:47 30 MLS/HR Furosemide (Lasix Tab) 40 mg QAM PO 07/22/17 09:00 08/21/17 08:59 Review of Systems Unable to obtain due to patients non directive nature and lethargy Physical Exam Date Time Temp Pulse Resp B/P (MAP) Pulse Ox O2 Delivery O2 Flow Rate FiO2 07/21/17 17:15 96 Nasal Cannula 4.0 07/21/17 17:03 37.9 111 24 111/76 (88) 80 07/21/17 12:00 37.1 94 22 111/51 (71) 92 Nasal Cannula 2.0 07/21/17 12:00 95 Room Air 07/21/17 08:00 95 Room Air 07/21/17 08:00 37.1 90 22 131/62 (85) 98 Room Air 07/21/17 06:00 99 07/21/17 04:00 Nasal Cannula 2.0 07/21/17 03:37 37.7 96 26 131/62 (85) 97 Nasal Cannula 2.0 07/21/17 00:00 Nasal Cannula 2.0 07/20/17 23:48 92 07/20/17 23:28 38.0 90 26 103/66 (78) 94 Nasal Cannula 2.0 07/20/17 20:30 39.0 94 32 128/78 (95) 97 Nasal Cannula 2.0 07/20/17 20:00 Nasal Cannula 2.0 Pt seen resting at bedside in NAD but is not alert and or oriented to person place or time. His vital signs show tachycardia and increase RR but not current fever is noted and is satting well on NC. Focused exam of the LLE revels severe +4 pitting edema to the extremity with erythema and calor present. The pusles of the foot are non-palpable on exam. Capillary refill is brisk to digits. No hair growth is noted to digits. No varicosities are present. Erythema and calor extend from dorsal and plantar forefoot to level of midfoot. There is a small open wound to the plantar foot with minimal depth measuring approximately 0.8 cm in length and 0.2 cm in width with a depth of 0.2 cm after debridement. No purulence was obtained and no malodor is present. The wound does not probe deeply on inspection and there is a healthy granular base to the wound. Laboratory Results Last 24 Hours Test 07/20/17 20:31 07/21/17 03:23 07/21/17 06:17 07/21/17 16:15 Bedside Glucose 146 mg/dl 150 mg/dl 154 mg/dl White Blood Count 10.62 K/uL Red Blood Count 3.34 M/uL Hemoglobin 10.7 g/dL Hematocrit 32.7 % Mean Corpuscular Volume 97.9 fL Mean Corpuscular Hemoglobin 32.0 pg Mean Corpuscular Hemoglobin Concent 32.7 g/dl RDW Standard Deviation 48.6 fL RDW Coefficient of Variation 13.5 % Platelet Count 97 K/uL Mean Platelet Volume 8.8 fL Platelet Estimate DECREASED Creatinine 1.52 mg/dl Est Creatinine Clear Calc Drug Dose 43.4 ml/min Estimated GFR () 47.4 Estimated GFR (Non- 40.9 Vancomycin Level Trough 19.5 mcg/ml Assessment & Plan #Left foot wound and Cellulitis - 87 yo male with DM and UTI admitted with S&S of sepsis including tachycardia and tachypnea with low pulse ox readings who my service was consulted for regarding a left foot cellulitis and wound. He has a negative CT scan for abscess or osteomyelitis. On inspection of the wound, it does not appear to be probing deeply or harboring purulence. This appears to be a localized issue complicated by a foot cellulitis likely 2/2 diffuse non-pitting edema. His current WBC is stable with IV abx. A partial thickness debridement was performed at bedside using #15 blade sharply. This revealed no purulence or deep probing of wound. I recommend dressing with saline wet to dry dressing at this time and continuing with local IV abx. There is no need for an incision and drainage at this time. He is welcome to follow up with me in my clinic in [place] for further care of the issue. Podiatry will sign off at this time. Thank you for the consultation and ability to take part in this patients care. Vivek Soria DPM AACFAS Additional Copies To Darren Carlson DO
[2017-07-21] MEDS: POTASSIUM CHLR 10 MEQ / WTR 10 MEQ in PREMIXED WATER 100 ML IV SCH ×2 (20:10→21:57)
[2017-07-21] MEDS: ACETAMINOPHEN IV 650 MG in EMPTY BAG 0 ML IV PRN (21:05)
[2017-07-22] VITALS (8 sets, daily range): BP systolic 107–138; BP diastolic 56–87; PULSE 79–126; TEMP 36.5–37.6; O2SAT 94–99
[2017-07-22] MEDS: PIPERACILL/TAZOBAC IV 4.5 GM in DEXTROSE 5% 100ML 100 ML IV SCH ×4 (00:32→19:49)
[2017-07-22] MEDS: VANCOMYCIN INJ 1,500 MG in SODIUM CHLORIDE 0.9% 500ML 500 ML IV SCH ×2 (00:32→15:38)
[2017-07-22] MEDS: LEVOTHYROXINE 88 MCG TAB PO SCH (05:24)
[2017-07-22] MEDS: HEPARIN SOD 5000 UNIT/0.5 ML CARP SQ SCH ×3 (05:24→20:57)
[2017-07-22] MEDS ORDERED: METOPROLOL TARTRATE 25 MG TAB PO ONE (06:29)
[2017-07-22] MEDS ORDERED: POTASSIUM CHLORIDE 20 MEQ TABCR PO STA (06:33)
[2017-07-22 06:46] LABS: HEMATOCRIT 34.2 % (42-52); HEMOGLOBIN 11.2 g/dL (14.0-18.0); MEAN CELL VOLUME 99.7 fL (80-100); MEAN CORPUSCULAR HEMOGLOBIN 32.7 pg (25-34); MEAN CORPUSCULAR HGB CONC 32.7 g/dl (32-36); MEAN PLATELET VOLUME 9.4 fL (7.4-10.4); PLATELET COUNT 108 K/uL (130-400); RED CELL DISTRIBUTION WIDTH CV 13.4 % (11.5-14.5); RED CELL DISTRIBUTION WIDTH SD 48.6 fL (36.4-46.3); WHITE BLOOD COUNT 8.69 K/uL (4.8-10.8)
[2017-07-22 07:20] LABS: CALCIUM 8.9 mg/dl (8.5-10.1); CREATININE 1.38 mg/dl (0.60-1.40); POTASSIUM 3.8 mmol/L (3.5-5.1)
[2017-07-22] MEDS: CEROVITE ADV FORMULA TAB PO SCH ×2 (07:53→19:47)
[2017-07-22] MEDS: POLYETHYLENE (MIRALAX) 17 GM PACK PO SCH (07:54)
[2017-07-22] MEDS: ASPIRIN 81 MG ECTAB PO SCH (07:54)
[2017-07-22] MEDS: INSULIN ASPART 100 UNITS/ML 3 ML PEN SC SCH ×4 (07:57→20:32)
[2017-07-22] MEDS ORDERED: FUROSEMIDE 40 MG TAB PO SCH (09:00)
[2017-07-22] MEDS: DOXYCYCLINE HYCLATE 100 MG in DEXTROSE 5% 100ML IV SCH ×2 (09:37→19:46)
[2017-07-22] MEDS ORDERED: FUROSEMIDE INJ 40 MG in SYRINGE 0 ML IV ONE (11:15)
--- NOTE | 2017-07-22 11:28 | INFECT. DISEASE CONSULTATION ---
DATE OF CONSULTATION: 07/22/2017 HISTORY OF PRESENT ILLNESS: This is an 87-year-old gentleman who has a history of chronic indwelling catheter secondary to phimosis, who was admitted with fevers and chills and shortness of breath. He has had persistent fevers since admission with a T-max being as high as 39.1 on admission. Overnight, his T-max was 39. He is currently afebrile. His family is at the bedside and they provide the majority of his symptoms. He was started initially on azithromycin, Rocephin and vancomycin for suspected upper respiratory infection and then was changed to Zosyn. He has been on Zosyn for multiple days. He did have a urine culture from the , which grew pansensitive E. coli. His UA was positive with large leukocyte esterase, greater than 30 WBCs and 3+ bacteria. Blood cultures were obtained on the that were negative to date. He had doxycycline added yesterday for left lower extremity cellulitis. His family states he has pain and edema in his lower extremities and there was some erythema of the left foot and also a wound. He was followed by podiatry, but no intervention is planned. He did have a CAT scan of the leg on the , which showed diffuse cellulitis, but no evidence of osteomyelitis or collection. A CAT scan of the chest, abdomen and pelvis on the was unremarkable. His most recent chest x-ray was on the and it showed volume overload with no evidence of infiltration. A flu swab in the ER was negative. His white blood cell count was initially 11 and it has improved to 8. He is tolerating antibiotics well. He is somewhat confused on exam, but appropriate. He denies any chest pain. He feels his breathing is better. He denies any cough, but does admit to some shortness of breath. He continues with oxygen. He denies any nausea, vomiting or diarrhea. He states his appetite has been stable. He does admit to pain in his feet, but states this is chronic and not any worse. His remaining review of systems is unremarkable. PAST MEDICAL HISTORY: Significant for severe aortic stenosis, chronic anemia, dyslipidemia, history of colon cancer, hypertension, history of lymphoma, morbid obesity, type 2 diabetes, hypothyroidism and chronic Monson catheter. PAST SURGICAL HISTORY: Significant for cataract surgery, right toe amputation and a TURP. FAMILY HISTORY: Noncontributory. SOCIAL HISTORY: Negative for tobacco use, alcohol use or drug use. ALLERGIES: HE IS ALLERGIC TO BACLOFEN AND BACTRIM. CURRENT MEDICATIONS: Include furosemide, Lopressor, Zosyn, doxycycline, subQ heparin, vancomycin, aspirin, MiraLax, acetaminophen, Synthroid, multivitamin, simvastatin, insulin, Zofran, and Risperdal. PHYSICAL EXAMINATION: VITAL SIGNS: He is afebrile, pulse 102, respiratory rate 20, blood pressure 117/73, and oxygen saturation 96% on 2 liters. GENERAL: He is awake, alert and oriented. He is somewhat confused. HEENT: Mucous membranes are moist. HEART: Regular. LUNGS: There are decreased breath sounds bilaterally at the bases. There is no wheezing or rhonchi. ABDOMEN: Mildly distended, but soft and nontender. EXTREMITIES: There is trace lower extremity edema bilaterally. Examination of the left foot reveals minimal erythema at the distal foot. There is a superficial ulceration on the dorsal aspect. There is no purulent drainage or bleeding. LABORATORY STUDIES: CBC today reveals a white count of 8.6, hemoglobin 11.2, and platelets of 108. Chemistry panel reveals a sodium of 137, potassium 3.8, chloride 103, bicarbonate 28, BUN 33, creatinine 1.3, and glucose is 152. UA is as above. Flu swab was negative. Urine culture is growing pansensitive E. coli. Blood culture is negative to date. IMAGING: As above. ASSESSMENT AND PLAN: Urinary tract infection, currently on Zosyn. Cellulitis of the left lower extremity. Leukocytosis, resolved. Fever, which is intermittent. At this time, I would continue him on his current antibiotics. Certainly, he can finish Zosyn after a 7-day course. He will remain on doxycycline for his lower extremity and will be following for improvement.
--- NOTE | 2017-07-22 11:30 | Progress Note ---
Progress Note Date of Service Jul 22, 2017. Progress Note ID Consult Dictated #[id number] A/P: 1. UTI 2. LLE cellulitis 3. Fever -Continue current abx, can stop zosyn after 7 days -Will follow
--- NOTE | 2017-07-22 12:16 | DIAGNOSTIC IMAGING REPORT ---
CHEST ONE VIEW PORTABLE HISTORY: 87 years-old Male r/o overload acute hypoxia with fever COMPARISON: Chest radiograph 07/20/2017 TECHNIQUE: Portable AP view of the chest FINDINGS: Patient is slightly rotated to the right. Cardiac silhouette remains enlarged. Atherosclerosis of the aorta. Pulmonary vascular congestion with persistent interstitial coarsening appears unchanged. No pneumothorax. Blunting of the costophrenic angles suggests trace effusions. Mild right hemidiaphragm elevation. Linear subsegmental bibasilar opacities suggest atelectasis. Right internal jugular [id number] catheter appears unchanged. Bones appear grossly intact. IMPRESSION: 1. Cardiomegaly with persistent mild pulmonary edema. 2. Suspected trace pleural effusions with subsegmental bibasilar atelectasis. The above report was generated using voice recognition software. It may contain grammatical, syntax or spelling errors. Electronically signed by: Khai Nicole M.D. 07/22/2017 12:15 PM Dictated Date/Time: 07/22/2017 12:13 PM
--- NOTE | 2017-07-22 12:47 | Cardiology Follow-Up ---
Subjective General Date of Service: Jul 22, 2017. Pt evaluation today including: conversation w/ patient, conversation w/ family , physical exam, chart review, lab review, review of studies, conversation w/ job service consultant, review of inpatient medication list History of Present Illness The patient is a 87 year old male seen in follow-up. Intermittent periods of confusion reported by nursing. Left lower extremity edema somewhat more prominent today. Patient transitioned to oral Lasix today. Denies chest discomfort or palpitations. Allergies Coded Allergies: Baclofen (Verified Allergy, Intermediate, HIVES, 07/18/17) Sulfamethoxazole w/Trimethoprim (Verified Allergy, Mild, rash per PCP records , 07/18/17) Social History Smoking Status: Unknown if Ever Smoked Hx Tobacco Use In Past Year?: Yes Hx Alcohol Use - Type And Amou: No Hx Substance Use - Type And Am: No Problem List Medical Problems: (1) Acute bronchitis Status: Acute (2) Bronchitis Status: Acute (3) Confusion Status: Acute (4) Elevated troponin Status: Acute (5) Fever Status: Acute (6) Urinary tract infection associated with indwelling urethralcatheter Status: Acute (7) UTI (urinary tract infection) Status: Acute (8) UTI (urinary tract infection) Status: Acute (9) UTI (urinary tract infection) Status: Acute (10) UTI (urinary tract infection) Status: Acute Review of Systems Respiratory: + cough, + dyspnea on exertion, No sputum, No wheezing, No shortness of breath, No dyspnea at rest, No hemoptysis Cardiac: + edema, No chest pain, No orthopnea, No PND, No claudication, No palpitations Physical Exam Vital Signs Last Vital Signs Documentation Date Time Temp Pulse Resp B/P (MAP) Pulse Ox O2 Delivery O2 Flow Rate FiO2 07/22/17 11:03 36.5 79 20 109/65 (80) 99 Nasal Cannula 4.0 07/20/17 04:00 40 Physical Exam Constitutional: General Apperance: obese Level of Distress: NAD Head: normocephalic, atraumatic Lungs: Auscultation: no wheezing, no rales/crackles, no rhonchi Cardiovascular: Heart Auscultation: II/ DAVID, irregular rate rhythm Abdomen: Bowel Sounds: normal Inspection & Palpation: soft, non-distended, no masses Liver: non-tender Extremities: no cyanosis, no clubbing, no ulcers, edema (2+ LLE edema, + erythema) Neurologic: Cranial Nerves: grossly intact Assessment and Plan Assessment and Plan FINAL IMPRESSION: 1. Sepsis secondary to Escherichia coli UTI and left lower extremity cellulitis. 2. Acute decompensated heart failure secondary to critical aortic stenosis. -Worsening left lower edema noted today 3. Paroxysmal atrial fibrillation with a rapid ventricular response. -Spontaneously converted to sinus rhythm with frequent PACs 4. Respiratory insufficiency with a transient BiPAP secondary to decompensated heart failure and sepsis syndrome. 5. Delirium secondary to hypoxia, sepsis, heart failure. -mental status improving 6. Mild thrombocytopenia. 7. Chart history of contraindications to long-term anticoagulation. PLAN AND RECOMMENDATIONS: Restart intravenous Lasix 40 mg IV daily. Repeat BMP in a.m. Agree with titration of Lopressor to 25 mg twice daily. Antibiotics and supportive care as per internal medicine. Laboratory Results Last 24 Hours Test 07/21/17 16:15 07/21/17 20:17 07/22/17 06:26 07/22/17 06:51 Bedside Glucose 154 mg/dl 160 mg/dl 152 mg/dl White Blood Count 8.69 K/uL Red Blood Count 3.43 M/uL Hemoglobin 11.2 g/dL Hematocrit 34.2 % Mean Corpuscular Volume 99.7 fL Mean Corpuscular Hemoglobin 32.7 pg Mean Corpuscular Hemoglobin Concent 32.7 g/dl RDW Standard Deviation 48.6 fL RDW Coefficient of Variation 13.4 % Platelet Count 108 K/uL Mean Platelet Volume 9.4 fL Sodium Level 137 mmol/L Potassium Level 3.8 mmol/L Chloride Level 103 mmol/L Carbon Dioxide Level 28 mmol/L Anion Gap 6.0 mmol/L Blood Urea Nitrogen 33 mg/dl Creatinine 1.38 mg/dl Est Creatinine Clear Calc Drug Dose 47.8 ml/min Estimated GFR () 53.3 Estimated GFR (Non- 46.0 BUN/Creatinine Ratio 23.9 Random Glucose 164 mg/dl Calcium Level 8.9 mg/dl Magnesium Level 2.8 mg/dl Test 07/22/17 11:01 Bedside Glucose 238 mg/dl
--- NOTE | 2017-07-22 13:11 | Progress Note ---
Subjective Date of Service: Jul 22, 2017. Subjective Pt evaluation today including: conversation w/ patient, physical exam, lab review, review of studies, review of inpatient medication list Saw/examined the patient in room 221 He is doing better, confusion improved; good PO intake as per nursing, he intermittently gets short of breath working to breath with some accessory muscle use Problem List Medical Problems: (1) Acute bronchitis Status: Acute (2) Bronchitis Status: Acute (3) Confusion Status: Acute (4) Elevated troponin Status: Acute (5) Fever Status: Acute (6) Urinary tract infection associated with indwelling urethralcatheter Status: Acute (7) UTI (urinary tract infection) Status: Acute (8) UTI (urinary tract infection) Status: Acute (9) UTI (urinary tract infection) Status: Acute (10) UTI (urinary tract infection) Status: Acute Review of Systems Respiratory: + cough, + shortness of breath, No sputum, No wheezing, No dyspnea on exertion, No dyspnea at rest, No hemoptysis Cardiac: + edema, No chest pain, No palpitations Medications Current Inpatient Medications Medications (Trade) Dose Ordered Sig/Robert Route Start Time Stop Time Status Last Admin Dose Admin Ondansetron HCl (Zofran Inj) 4 mg Q6H PRN IV 07/18/17 14:15 08/17/17 14:14 Glucose (Glucose 40% Gel) 15-30 GRAMS 15 GRAMS... UD PRN PO 07/18/17 14:15 08/17/17 14:14 Glucose (Glucose Chew Tab) 4-8 Tablets 4 Tabl... UD PRN PO 07/18/17 14:15 08/17/17 14:14 Dextrose (Dextrose 50% 50ML Syringe) 25-50ML OF 50% DW IV FOR... UD PRN IV 07/18/17 14:15 08/17/17 14:14 Glucagon (Glucagon Inj) 1 mg UD PRN SQ 07/18/17 14:15 08/17/17 14:14 Aspirin (Ecotrin Tab) 81 mg QAM PO 07/19/17 09:00 08/18/17 08:59 07/22/17 07:54 81 MG Levothyroxine Sodium (Synthroid Tab) 176 mcg DAILYBB PO 07/19/17 06:00 08/18/17 05:59 07/21/17 06:00 176 MCG Multivitamins/ Minerals (Multivitamin W/ Minerals Tab) 1 tab BID PO 07/18/17 21:00 08/17/17 20:59 07/22/17 07:53 1 TAB Risperidone (Risperdal Tab) 0.5 mg Q12 PRN PO 07/18/17 14:15 08/17/17 14:14 Simvastatin (Zocor Tab) 40 mg HS PO 07/18/17 21:00 08/17/17 20:59 07/21/17 20:05 40 MG Polyethylene (Miralax Powder Packet) 17 gm QAM PO 07/19/17 09:00 08/18/17 08:59 07/21/17 09:36 17 GM Insulin Aspart (novoLOG ASPART) SLIDING SCALE G... ACHS SC 07/18/17 16:15 08/17/17 16:14 07/22/17 11:45 8 UNITS Miscellaneous Information (Consult) 1 ea DAILY PRN N/A 07/19/17 00:32 08/18/17 00:31 Miscellaneous Information (Consult) 1 ea UD PRN N/A 07/19/17 01:00 08/18/17 00:59 Acetaminophen 650 mg/Empty Bag 65 ml @ 260 mls/hr Q6H PRN IV 07/19/17 07:15 08/18/17 07:14 07/21/17 21:05 260 MLS/HR Vancomycin HCl 1500 mg/Sodium Chloride 530 ml @ 200 mls/hr Q18H IV 07/19/17 16:00 07/26/17 15:59 07/22/17 00:32 200 MLS/HR Ioversol (Optiray 320) 100 ml UD PRN IV 07/19/17 12:15 07/23/17 12:14 Heparin Sodium (Porcine) (Heparin Sq 5000 Unit/0.5ml) 5,000 unit Q8 SQ 07/20/17 22:00 08/19/17 21:59 07/21/17 23:04 5,000 UNIT Doxycycline Hyclate 100 mg/ Dextrose 110 ml @ 55 mls/hr Q12 IV 07/21/17 09:00 07/28/17 08:59 07/22/17 09:37 55 MLS/HR Piperacillin Sod/ Tazobactam Sod 4.5 gm/Dextrose 120 ml @ 30 mls/hr Q8 IV 07/21/17 14:00 07/26/17 05:59 07/22/17 06:08 30 MLS/HR Metoprolol Tartrate (Lopressor Tab) 25 mg BID PO 07/22/17 21:00 08/18/17 20:59 Furosemide 40 mg/ Syringe 4 ml @ 4 mls/min DAILY IV 07/23/17 09:00 08/22/17 08:59 Objective Vital Signs Date Time Temp Pulse Resp B/P (MAP) Pulse Ox O2 Delivery O2 Flow Rate FiO2 07/22/17 11:03 36.5 79 20 109/65 (80) 99 Nasal Cannula 4.0 07/22/17 08:00 Nasal Cannula 2.0 07/22/17 07:24 36.8 102 20 117/73 (88) 96 Nasal Cannula 2.0 07/22/17 06:27 126 138/59 (85) 07/22/17 04:00 Nasal Cannula 2.0 07/22/17 03:59 36.9 86 16 118/63 (81) 94 Nasal Cannula 2.0 07/22/17 00:15 37.2 91 17 116/63 (80) 98 Nasal Cannula 3.0 07/21/17 23:59 Nasal Cannula 2.0 07/21/17 20:03 39.0 108 26 96/58 (71) 96 Nasal Cannula 3.0 07/21/17 20:00 Nasal Cannula 2.0 07/21/17 18:50 37.1 109 24 148/58 (88) 94 Nasal Cannula 4.0 07/21/17 17:15 96 Nasal Cannula 4.0 07/21/17 17:03 37.9 111 24 111/76 (88) 80 Physical Exam General Appearance: + mild distress Respiratory/Chest: + accessory muscle use, + crackles Cardiovascular: regular rate, rhythm Abdomen: normal bowel sounds, non tender, soft Extremities: normal inspection, no pedal edema Laboratory Results Last 24 Hours Test 07/21/17 16:15 07/21/17 20:17 07/22/17 06:26 07/22/17 06:51 Bedside Glucose 154 mg/dl 160 mg/dl 152 mg/dl White Blood Count 8.69 K/uL Red Blood Count 3.43 M/uL Hemoglobin 11.2 g/dL Hematocrit 34.2 % Mean Corpuscular Volume 99.7 fL Mean Corpuscular Hemoglobin 32.7 pg Mean Corpuscular Hemoglobin Concent 32.7 g/dl RDW Standard Deviation 48.6 fL RDW Coefficient of Variation 13.4 % Platelet Count 108 K/uL Mean Platelet Volume 9.4 fL Sodium Level 137 mmol/L Potassium Level 3.8 mmol/L Chloride Level 103 mmol/L Carbon Dioxide Level 28 mmol/L Anion Gap 6.0 mmol/L Blood Urea Nitrogen 33 mg/dl Creatinine 1.38 mg/dl Est Creatinine Clear Calc Drug Dose 47.8 ml/min Estimated GFR () 53.3 Estimated GFR (Non- 46.0 BUN/Creatinine Ratio 23.9 Random Glucose 164 mg/dl Calcium Level 8.9 mg/dl Magnesium Level 2.8 mg/dl Test 07/22/17 11:01 Bedside Glucose 238 mg/dl Assessment and Plan This is an obese 87 year old male with a PMH of severe aortic stenosis, paroxysmal atrial fibrillation, hx. 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 He was subsequently transferred to the ICU due to worsening metabolic encephalopathy and acute respiratory failure. Metabolic Encephalopathy secondary to Complicated UTI in the setting of a Chronic Indwelling Catheter 07/22 appreciate ID input will d/c Zosyn after 7 days can likely d/c Vanco Doxycycline for the L LE cellulitis 07/21 patient with worsening encephalopathy/delirium. currently on Vancomycin/Zosyn/Doxycycline regimen For now, we should continue this, will consult ID for further input. Left Lower Extremity Cellulitis 07/22 continue Doxycycline 07/[address] performed - Considerable soft tissue edematous change suggesting a diffuse cellulitis warm to touch, erythematous leg Doppler suggested no acute DVT will continue abx; ID consulted Left Plantar Foot Wound 07/22 appreciate podiatry input no further surgical intervention necessary at this time 07/21 appreciate wound care nurse input the wound is significant and may need debridement/surgical evaluation unfortunately, wound care physician is not in house will consult podiatry for further input Acute Hypoxic Respiratory Failure in the setting of Valvular Heart Disease 07/22 switched back to IV Lasix 40mg daily monitor output 07/21 patient meets hypoxic respiratory failure criteria - tachypnea; pulse ox <90% on RA CXR suggests volume overload; hx. of severe aortic stenosis patient worsened and was transferred from tele to ICU; placed on bipap now back on O2 via nasal cannula was on 40mg of IV Lasix, now switched to PO Lasix 40mg daily Paroxysmal Atrial Fibrillation with Rapid Ventricular Response has had issues with rapid ventricular response during this admission, likely worsened with infection IV Lopressor will be switched to PO b-wli has had multiple PVCs on monitor during exam will give Potassium and Magnesium and recheck these in AM DM2 hx. of diabetes, diet controlled last Ha1c ~ 6.6% BSGs on presentation elevated, given SQ regular insulin will add a sliding scale, check an Ha1c in AM Hypothyroidism continue Synthroid DVT ppx subq heparin DNR - as per discussion with family; family states these are patient wishes
[2017-07-22] MEDS: METOPROLOL TARTRATE 25 MG TAB PO SCH (19:46)
[2017-07-22] MEDS: SIMVASTATIN 40 MG TAB PO SCH (19:47)
[2017-07-23] VITALS (7 sets, daily range): BP systolic 109–138; BP diastolic 66–76; PULSE 66–104; TEMP 36.7–37.3; O2SAT 92–100
[2017-07-23] MEDS: PIPERACILL/TAZOBAC IV 4.5 GM in DEXTROSE 5% 100ML 100 ML IV SCH ×4 (05:35→20:10)
[2017-07-23] MEDS: LEVOTHYROXINE 88 MCG TAB PO SCH (05:36)
[2017-07-23] MEDS: HEPARIN SOD 5000 UNIT/0.5 ML CARP SQ SCH ×3 (05:39→20:05)
[2017-07-23] MEDS: METOPROLOL TARTRATE 25 MG TAB PO SCH ×2 (08:22→20:03)
[2017-07-23] MEDS: CEROVITE ADV FORMULA TAB PO SCH ×2 (08:23→20:03)
[2017-07-23] MEDS: ASPIRIN 81 MG ECTAB PO SCH (08:24)
[2017-07-23] MEDS: INSULIN ASPART 100 UNITS/ML 3 ML PEN SC SCH ×4 (08:28→20:05)
[2017-07-23] MEDS ORDERED: FUROSEMIDE INJ 40 MG in SYRINGE 0 ML IV SCH (09:00)
[2017-07-23] MEDS ORDERED: VANCOMYCIN TROUGH ONE (09:30)
[2017-07-23] MEDS ORDERED: ACETAMINOPHEN 325 MG TAB PO PRN (09:30)
[2017-07-23] MEDS ORDERED: NURSING VERBAL MED ORDER ONE (09:30)
[2017-07-23] MEDS ORDERED: LIDOCAINE/PRILOCAINE 2.5% EA CRM EXT PRN (09:45)
--- NOTE | 2017-07-23 10:05 | Progress Note ---
Subjective Date of Service: Jul 23, 2017. Subjective Pt evaluation today including: conversation w/ patient, conversation w/ family , physical exam, chart review, lab review Patient is seen in follow-up examination. He is only complaining of pain in the left lower extremity. He states overall he is feeling better. His breathing is improved. He did have a chest x-ray yesterday which showed continued pulmonary edema. He is being followed by Cardiology. His blood cultures remain negative. Overall his fevers has improved. He is currently afebrile. He remains on doxycycline and Zosyn. His urine culture is growing E coli. He denies any chest pain cough shortness of breath on my examination. He denies any abdominal pain nausea or vomiting. His only is of pain in the left foot. He also is complaining of bilateral knee pain which she states is chronic. His family is at the bedside and they state he does use a topical anti pain medication at which relieves his knee pain they are asking if any topical agents can be prescribed during his stay. All remaining review systems are reviewed and are unremarkable. Problem List Medical Problems: (1) Acute bronchitis Status: Acute (2) Bronchitis Status: Acute (3) Confusion Status: Acute (4) Elevated troponin Status: Acute (5) Fever Status: Acute (6) Urinary tract infection associated with indwelling urethralcatheter Status: Acute (7) UTI (urinary tract infection) Status: Acute (8) UTI (urinary tract infection) Status: Acute (9) UTI (urinary tract infection) Status: Acute (10) UTI (urinary tract infection) Status: Acute Objective Vital Signs Date Time Temp Pulse Resp B/P (MAP) Pulse Ox O2 Delivery O2 Flow Rate FiO2 07/23/17 07:46 37.3 104 20 121/71 (88) 97 Nasal Cannula 4.0 07/23/17 04:00 Nasal Cannula 4.0 07/23/17 03:16 37.2 87 28 138/76 (96) 98 Nasal Cannula 3.5 07/22/17 23:24 37.6 95 28 107/56 (73) 98 Nasal Cannula 3.5 07/22/17 23:18 Nasal Cannula 4.0 07/22/17 20:02 37.3 88 24 117/69 (85) 98 Nasal Cannula 4.0 07/22/17 20:00 Nasal Cannula 4.0 07/22/17 16:00 Nasal Cannula 4.0 07/22/17 15:51 37.0 84 18 134/87 (103) 98 Nasal Cannula 2.0 07/22/17 12:00 Nasal Cannula 4.0 07/22/17 11:03 36.5 79 20 109/65 (80) 99 Nasal Cannula 4.0 Physical Exam General Appearance: WD/WN, no apparent distress Eyes: normal inspection, EOMI Neck: supple Respiratory/Chest: normal breath sounds, + decreased breath sounds Cardiovascular: regular rate, rhythm Abdomen: soft Extremities: + inflammation, + pedal edema, + swelling Neurologic/Psychiatric: alert, oriented x 3 Skin: normal color Comments: Examination of the left foot reveals a continued erythema. There is no significant difference from yesterday. There is a ulceration on the dorsal aspect of his foot but there is no opening, dehiscence, drainage, bleeding, warmth, tenderness. He has not had any extension of the erythema left foot. Her no other open wounds. Laboratory Results Item Value Date Time Urine Culture - Final Complete 07/18/17 1305 Urine,Catheterized Escherichia Coli Blood Culture - Preliminary Resulted 07/18/17 1115 Blood NO GROWTH TO DATE. Blood Culture - Preliminary Resulted 07/18/17 1030 Blood NO GROWTH TO DATE. Last 24 Hours Test 07/22/17 11:01 07/22/17 15:43 07/22/17 20:06 07/23/17 06:52 Bedside Glucose 238 mg/dl 165 mg/dl 151 mg/dl 148 mg/dl Test 07/23/17 09:30 07/23/17 09:36 Assessment and Plan (1) Left leg cellulitis Assessment & Plan: I would suggest continuing him the doxycycline for a total of 14 days. (2) Complicated UTI (urinary tract infection) Assessment & Plan: He should complete a 7 days Zosyn for urinary tract infection
[2017-07-23] MEDS: DOXYCYCLINE HYCLATE 100 MG in DEXTROSE 5% 100ML IV SCH (10:07)
[2017-07-23 10:15] LABS: HEMATOCRIT 32.6 % (42-52); HEMOGLOBIN 10.7 g/dL (14.0-18.0); MEAN CELL VOLUME 97.3 fL (80-100); MEAN CORPUSCULAR HEMOGLOBIN 31.9 pg (25-34); MEAN CORPUSCULAR HGB CONC 32.8 g/dl (32-36); MEAN PLATELET VOLUME 8.6 fL (7.4-10.4); PLATELET COUNT 123 K/uL (130-400); RED CELL DISTRIBUTION WIDTH CV 13.3 % (11.5-14.5); WHITE BLOOD COUNT 8.16 K/uL (4.8-10.8)
--- NOTE | 2017-07-23 10:18 | Progress Note ---
Subjective Date of Service: Jul 23, 2017. Subjective Pt evaluation today including: conversation w/ patient, physical exam, lab review, review of studies, review of inpatient medication list Saw/examined the patient in room 221 He is doing better, more awake/alert today c/o lower extremity pain, states his lidocaine cream that he uses at home works for him his breathing is improving slightly today Problem List Medical Problems: (1) Acute bronchitis Status: Acute (2) Bronchitis Status: Acute (3) Confusion Status: Acute (4) Elevated troponin Status: Acute (5) Fever Status: Acute (6) Urinary tract infection associated with indwelling urethralcatheter Status: Acute (7) UTI (urinary tract infection) Status: Acute (8) UTI (urinary tract infection) Status: Acute (9) UTI (urinary tract infection) Status: Acute (10) UTI (urinary tract infection) Status: Acute Review of Systems Constitutional: + weakness Respiratory: + shortness of breath, No cough, No sputum, No wheezing, No dyspnea on exertion Cardiac: + edema, No chest pain, No palpitations Musculoskeletal: + see HPI, + muscle pain Medications Current Inpatient Medications Medications (Trade) Dose Ordered Sig/Robert Route Start Time Stop Time Status Last Admin Dose Admin Ondansetron HCl (Zofran Inj) 4 mg Q6H PRN IV 07/18/17 14:15 08/17/17 14:14 Glucose (Glucose 40% Gel) 15-30 GRAMS 15 GRAMS... UD PRN PO 07/18/17 14:15 08/17/17 14:14 Glucose (Glucose Chew Tab) 4-8 Tablets 4 Tabl... UD PRN PO 07/18/17 14:15 08/17/17 14:14 Dextrose (Dextrose 50% 50ML Syringe) 25-50ML OF 50% DW IV FOR... UD PRN IV 07/18/17 14:15 08/17/17 14:14 Glucagon (Glucagon Inj) 1 mg UD PRN SQ 07/18/17 14:15 08/17/17 14:14 Aspirin (Ecotrin Tab) 81 mg QAM PO 07/19/17 09:00 08/18/17 08:59 07/23/17 08:24 81 MG Levothyroxine Sodium (Synthroid Tab) 176 mcg DAILYBB PO 07/19/17 06:00 3/13/18 05:59 07/23/17 05:36 176 MCG Multivitamins/ Minerals (Multivitamin W/ Minerals Tab) 1 tab BID PO 07/18/17 21:00 08/17/17 20:59 07/23/17 08:23 1 TAB Risperidone (Risperdal Tab) 0.5 mg Q12 PRN PO 07/18/17 14:15 08/17/17 14:14 Simvastatin (Zocor Tab) 40 mg HS PO 07/18/17 21:00 08/17/17 20:59 07/22/17 19:47 40 MG Polyethylene (Miralax Powder Packet) 17 gm QAM PO 07/19/17 09:00 08/18/17 08:59 07/21/17 09:36 17 GM Insulin Aspart (novoLOG ASPART) SLIDING SCALE G... ACHS SC 07/18/17 16:15 08/17/17 16:14 07/23/17 08:28 4 UNITS Miscellaneous Information (Consult) 1 ea DAILY PRN N/A 07/19/17 00:32 08/18/17 00:31 Miscellaneous Information (Consult) 1 ea UD PRN N/A 07/19/17 01:00 08/18/17 00:59 Vancomycin HCl 1500 mg/Sodium Chloride 530 ml @ 200 mls/hr Q18H IV 07/19/17 16:00 07/26/17 15:59 07/22/17 15:38 200 MLS/HR Ioversol (Optiray 320) 100 ml UD PRN IV 07/19/17 12:15 07/23/17 12:14 Heparin Sodium (Porcine) (Heparin Sq 5000 Unit/0.5ml) 5,000 unit Q8 SQ 07/20/17 22:00 08/19/17 21:59 07/23/17 05:39 5,000 UNIT Doxycycline Hyclate 100 mg/ Dextrose 110 ml @ 55 mls/hr Q12 IV 07/21/17 09:00 07/28/17 08:59 07/23/17 10:07 55 MLS/HR Piperacillin Sod/ Tazobactam Sod 4.5 gm/Dextrose 120 ml @ 30 mls/hr Q8 IV 07/21/17 14:00 07/26/17 05:59 2/15/18 06:25 30 MLS/HR Metoprolol Tartrate (Lopressor Tab) 25 mg BID PO 07/22/17 21:00 08/18/17 20:59 07/23/17 08:22 25 MG Furosemide 40 mg/ Syringe 4 ml @ 4 mls/min DAILY IV 07/23/17 09:00 08/22/17 08:59 07/23/17 08:24 4 MLS/MIN Lidocaine/ Prilocaine (Emla 2.5% Crm) 1 ea UD PRN EXT 07/23/17 09:45 08/22/17 09:44 Acetaminophen (Tylenol Tab) 650 mg Q6H PRN PO 07/23/17 10:00 08/22/17 09:29 Objective Vital Signs Date Time Temp Pulse Resp B/P (MAP) Pulse Ox O2 Delivery O2 Flow Rate FiO2 07/23/17 07:46 37.3 104 20 121/71 (88) 97 Nasal Cannula 4.0 07/23/17 04:00 Nasal Cannula 4.0 07/23/17 03:16 37.2 87 28 138/76 (96) 98 Nasal Cannula 3.5 07/22/17 23:24 37.6 95 28 107/56 (73) 98 Nasal Cannula 3.5 07/22/17 23:18 Nasal Cannula 4.0 07/22/17 20:02 37.3 88 24 117/69 (85) 98 Nasal Cannula 4.0 07/22/17 20:00 Nasal Cannula 4.0 07/22/17 16:00 Nasal Cannula 4.0 07/22/17 15:51 37.0 84 18 134/87 (103) 98 Nasal Cannula 2.0 07/22/17 12:00 Nasal Cannula 4.0 07/22/17 11:03 36.5 79 20 109/65 (80) 99 Nasal Cannula 4.0 Physical Exam General Appearance: no apparent distress Respiratory/Chest: no respiratory distress, no accessory muscle use, + decreased breath sounds Cardiovascular: no murmur, + irregularly irregular Extremities: + pertinent finding (mild edema of b/l LE, erythema of L dorsal aspect of foot) Laboratory Results Last 24 Hours Test 07/22/17 11:01 07/22/17 15:43 07/22/17 20:06 07/23/17 06:52 Bedside Glucose 238 mg/dl 165 mg/dl 151 mg/dl 148 mg/dl Test 07/23/17 09:30 07/23/17 09:55 Assessment and Plan This is an obese 87 year old male with a PMH of severe aortic stenosis, paroxysmal atrial fibrillation, hx. 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 He was subsequently transferred to the ICU due to worsening metabolic encephalopathy and acute respiratory failure. Metabolic Encephalopathy secondary to Complicated UTI in the setting of a Chronic Indwelling Catheter 07/23 we will likely d/c Zosyn in about 1-2 days will continue doxycycline for prolonged cellulitis 07/22 appreciate ID input will d/c Zosyn after 7 days can likely d/c Vanco Doxycycline for the L LE cellulitis 07/21 patient with worsening encephalopathy/delirium. currently on Vancomycin/Zosyn/Doxycycline regimen For now, we should continue this, will consult ID for further input. Left Lower Extremity Cellulitis 07/22 continue Doxycycline 07/[address] performed - Considerable soft tissue edematous change suggesting a diffuse cellulitis warm to touch, erythematous leg Doppler suggested no acute DVT will continue abx; ID consulted Left Plantar Foot Wound 07/22 appreciate podiatry input no further surgical intervention necessary at this time 07/21 appreciate wound care nurse input the wound is significant and may need debridement/surgical evaluation unfortunately, wound care physician is not in house will consult podiatry for further input Acute Hypoxic Respiratory Failure in the setting of Valvular Heart Disease 07/23 continue IV Lasix for now monitor breathing status check labs for K and kidney function 07/22 switched back to IV Lasix 40mg daily monitor output 07/21 patient meets hypoxic respiratory failure criteria - tachypnea; pulse ox <90% on RA CXR suggests volume overload; hx. of severe aortic stenosis patient worsened and was transferred from tele to ICU; placed on bipap now back on O2 via nasal cannula was on 40mg of IV Lasix, now switched to PO Lasix 40mg daily Paroxysmal Atrial Fibrillation with Rapid Ventricular Response 07/23 current Lopressor dose is 25mg BID, monitor HRs which have been labile if blood pressure allows, can titrate up if needed 07/22 has had issues with rapid ventricular response during this admission, likely worsened with infection IV Lopressor will be switched to PO b-wil has had multiple PVCs on monitor during exam will give Potassium and Magnesium and recheck these in AM DM2 hx. of diabetes, diet controlled last Ha1c ~ 6.6% BSGs on presentation elevated, given SQ regular insulin will add a sliding scale, check an Ha1c in AM Hypothyroidism continue Synthroid DVT ppx subq heparin DNR - as per discussion with family; family states these are patient wishes
[2017-07-23 10:35] LABS: CALCIUM 9.1 mg/dl (8.5-10.1); CREATININE 1.19 mg/dl (0.60-1.40); POTASSIUM 3.8 mmol/L (3.5-5.1)
[2017-07-23] MEDS: ACETAMINOPHEN 325 MG TAB PO PRN ×2 (11:07→20:07)
[2017-07-23] MEDS: VANCOMYCIN INJ 1,500 MG in SODIUM CHLORIDE 0.9% 500ML 500 ML IV SCH (11:07)
--- NOTE | 2017-07-23 14:41 | PROGRESS NOTE ---
DATE: 07/23/2017 CARDIOLOGY CONSULTATION FOLLOWUP NOTE The patient seen and examined. Chart, medications, telemetry reviewed. SUBJECTIVE: The patient is alert and oriented today, accompanied by his has been observed to have intermittence of confusion at times but feels clinically improved, specifically denies any chest pain or discomfort. Notes no dizziness or lightheadedness. He is being treated for underlying cellulitis with improved clinical status, per history. He has mild discomfort in the left leg which remains warm to touch. PHYSICAL EXAMINATION: VITAL SIGNS: Heart rate is 80, blood pressure is 117/72. HEENT: Normocephalic, atraumatic. NECK: There is no jugular venous distention at 30 degrees. LUNGS: Reveal mildly diminished breath sounds, bibasilar. There is no rhonchi or wheeze. CARDIOVASCULAR: Regular, grade 2/6 systolic murmur. There is no diastolic murmur. There is no S3 gallop. ABDOMEN: Soft. EXTREMITIES: Reveal 1-2+ lower extremity edema. There is mild warmth to the left calf, but erythema and tenderness is not present. LABORATORY DATA: White cell count is 8.1, hemoglobin is 10.7. Sodium is 136, potassium is 3.8, chloride is 111, bicarb is 30, BUN is 32, and creatinine is 1.1. IMPRESSION AND PLAN: An 87-year-old male whose prehospital history is notable for critical aortic stenosis, paroxysmal atrial fibrillation, chronic mild thrombocytopenia who was admitted with acute clinical decline in respiratory failure and mild obtundation secondary to sepsis, Escherichia coli urinary tract infection and left lower extremity cellulitis. The patient is gradually improving. Heart rates have been controlled and remains in sinus rhythm on metoprolol 25 mg twice per day, IV furosemide was initiated, dose given today. Plan to hold a.m. dose until further reassessed in a.m. Likely resume oral diuretic dosing in the next 1-2 days, depending on clinical course. The patient by 's description and own description is substantially improved from initial admission.
--- NOTE | 2017-07-23 15:16 | Palliative Care Consultation ---
Consultation Date of Consultation: Jul 23, 2017. Requesting Physician: Dr. Carlson Attending Physician: Dr. 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 In ED, patient had abnormal UA, and was hypoxic in 80s on room air. CXR showed cardiomegaly with volume overload in the setting of severe valvular heart disease. Patient was initially admitted to telemetry unit, received Lasix and abx for UTI. Patient was transferred to ICU on 07/21 for worsening metabolic encephalopathy and acute respiratory failure. Family had made the decision at that time to make patient a DNR as he did not want to be intubated. He was placed on bipap and was able to be transitioned back to nasal cannula the next day as he did markedly improve. Palliative care is now consulted to establish goals of care and complete POLST form. I met with the patient and his , Daniella, in room 221. Patient is awake alert and oriented x4. He denies any complaints at this time. We talked about goals of care. Patient almost immediately stated, "I've been through hell, I don 't want to come back to the hospital." Patient and both agree that they are okay with continuing current medical treatment while he is in hospital, getting patient as well as we can get him, and going to SNF for rehab in hopes of getting patient home. Patient states that if he does not do well with rehab or if another acute event happens, or even if he does get well enough to go home , he does NOT want to return to the hospital. At that point, he wants to transition to hospice and be made comfortable so he can pass away peacefully. Again, patient does want to give rehab a try first. POLST form completed, see plan below. Past Medical/Surgical History Medical History: Aortic stenosis, severe Chronic anemia Dyslipidemia Colon cancer Htn Lympohoma- remission Obesity Surgical History: Cataract, right Left toe amputation TURP Social History Smoking Status: Unknown if Ever Smoked History of Alcohol Use: No Drug Use: none Marital Status: Housing Status: lives with family Occupation Status: retired Review of Systems Constitutional: + weakness ENT: No trouble swallowing Respiratory: + cough, + dyspnea on exertion, No wheezing, No dyspnea at rest Cardiac: + edema, No chest pain Abdomen: No pain, No nausea, No vomiting Male : No problem reported Psychiatric: No depression symptoms, No anxiety Allergies Coded Allergies: Baclofen (Verified Allergy, Intermediate, HIVES, 07/18/17) Sulfamethoxazole w/Trimethoprim (Verified Allergy, Mild, rash per PCP records , 07/18/17) Medications Current Inpatient Medications Medications (Trade) Dose Ordered Sig/Robert Route Start Time Stop Time Status Last Admin Dose Admin Ondansetron HCl (Zofran Inj) 4 mg Q6H PRN IV 07/18/17 14:15 08/17/17 14:14 Glucose (Glucose 40% Gel) 15-30 GRAMS 15 GRAMS... UD PRN PO 07/18/17 14:15 08/17/17 14:14 Glucose (Glucose Chew Tab) 4-8 Tablets 4 Tabl... UD PRN PO 07/18/17 14:15 08/17/17 14:14 Dextrose (Dextrose 50% 50ML Syringe) 25-50ML OF 50% DW IV FOR... UD PRN IV 07/18/17 14:15 08/17/17 14:14 Glucagon (Glucagon Inj) 1 mg UD PRN SQ 07/18/17 14:15 08/17/17 14:14 Aspirin (Ecotrin Tab) 81 mg QAM PO 07/19/17 09:00 08/18/17 08:59 07/23/17 08:24 81 MG Levothyroxine Sodium (Synthroid Tab) 176 mcg DAILYBB PO 07/19/17 06:00 08/18/17 05:59 07/23/17 05:36 176 MCG Multivitamins/ Minerals (Multivitamin W/ Minerals Tab) 1 tab BID PO 07/18/17 21:00 08/17/17 20:59 07/23/17 08:23 1 TAB Risperidone (Risperdal Tab) 0.5 mg Q12 PRN PO 07/18/17 14:15 08/17/17 14:14 Simvastatin (Zocor Tab) 40 mg HS PO 07/18/17 21:00 08/17/17 20:59 07/22/17 19:47 40 MG Polyethylene (Miralax Powder Packet) 17 gm QAM PO 07/19/17 09:00 08/18/17 08:59 07/21/17 09:36 17 GM Insulin Aspart (novoLOG ASPART) SLIDING SCALE G... ACHS SC 07/18/17 16:15 08/17/17 16:14 07/23/17 12:23 6 UNITS Miscellaneous Information (Consult) 1 ea UD PRN N/A 07/19/17 01:00 08/18/17 00:59 Heparin Sodium (Porcine) (Heparin Sq 5000 Unit/0.5ml) 5,000 unit Q8 SQ 07/20/17 22:00 08/19/17 21:59 07/23/17 13:59 5,000 UNIT Piperacillin Sod/ Tazobactam Sod 4.5 gm/Dextrose 120 ml @ 30 mls/hr Q8 IV 07/21/17 14:00 07/26/17 05:59 07/23/17 13:52 30 MLS/HR Metoprolol Tartrate (Lopressor Tab) 25 mg BID PO 07/22/17 21:00 08/18/17 20:59 07/23/17 08:22 25 MG Furosemide 40 mg/ Syringe 4 ml @ 4 mls/min DAILY IV 07/23/17 09:00 08/22/17 08:59 Future Hold 07/23/17 08:24 4 MLS/MIN Lidocaine/ Prilocaine (Emla 2.5% Crm) 1 ea UD PRN EXT 07/23/17 09:45 08/22/17 09:44 07/23/17 11:06 1 EA Acetaminophen (Tylenol Tab) 650 mg Q6H PRN PO 07/23/17 10:00 08/22/17 09:29 07/23/17 11:07 650 MG Doxycycline Hyclate (Vibramycin Cap) 100 mg BID PO 07/23/17 21:00 08/04/17 20:59 Physical Exam Date Time Temp Pulse Resp B/P (MAP) Pulse Ox O2 Delivery O2 Flow Rate FiO2 07/23/17 12:00 Nasal Cannula 2.0 07/23/17 10:53 37.3 81 20 117/72 (87) 95 Nasal Cannula 4.0 07/23/17 08:00 Nasal Cannula 2.0 07/23/17 07:46 37.3 104 20 121/71 (88) 97 Nasal Cannula 4.0 07/23/17 04:00 Nasal Cannula 4.0 07/23/17 03:16 37.2 87 28 138/76 (96) 98 Nasal Cannula 3.5 07/22/17 23:24 37.6 95 28 107/56 (73) 98 Nasal Cannula 3.5 07/22/17 23:18 Nasal Cannula 4.0 07/22/17 20:02 37.3 88 24 117/69 (85) 98 Nasal Cannula 4.0 07/22/17 20:00 Nasal Cannula 4.0 07/22/17 16:00 Nasal Cannula 4.0 07/22/17 15:51 37.0 84 18 134/87 (103) 98 Nasal Cannula 2.0 General Appearance: no apparent distress ENT: hearing grossly normal Neck: supple, no JVD Respiratory: no respiratory distress, no accessory muscle use, + decreased breath sounds Cardiovascular: regular rate, rhythm, + normal peripheral pulses, + pertinent finding (+1 BLE edema) Abdomen: normal bowel sounds, non tender, soft Neurologic/Psychiatric: alert, normal mood/affect, oriented x 3 Laboratory Results Last 24 Hours Test 07/22/17 15:43 07/22/17 20:06 07/23/17 06:52 07/23/17 09:30 Bedside Glucose 165 mg/dl 151 mg/dl 148 mg/dl Vancomycin Level Trough 20.2 mcg/ml Test 07/23/17 09:55 07/23/17 10:56 White Blood Count 8.16 K/uL Red Blood Count 3.35 M/uL Hemoglobin 10.7 g/dL Hematocrit 32.6 % Mean Corpuscular Volume 97.3 fL Mean Corpuscular Hemoglobin 31.9 pg Mean Corpuscular Hemoglobin Concent 32.8 g/dl RDW Standard Deviation 47.0 fL RDW Coefficient of Variation 13.3 % Platelet Count 123 K/uL Mean Platelet Volume 8.6 fL Sodium Level 136 mmol/L Potassium Level 3.8 mmol/L Chloride Level 101 mmol/L Carbon Dioxide Level 30 mmol/L Anion Gap 5.0 mmol/L Blood Urea Nitrogen 32 mg/dl Creatinine 1.19 mg/dl Est Creatinine Clear Calc Drug Dose 55.3 ml/min Estimated GFR () 63.7 Estimated GFR (Non- 55.0 BUN/Creatinine Ratio 26.7 Random Glucose 196 mg/dl Calcium Level 9.1 mg/dl Bedside Glucose 181 mg/dl Assessment & Plan Problem list: SOB/MCQUEEN Weakness Metabolic encephalopathy- resolved Complicated UTI in setting of chronic indwelling Monson LLE cellulitis Left plantar wound Acute hypoxic respiratory failure 2/2 valvular heart disease Severe aortic stenosis Paroxysmal afib Goals of care Palliative care recs: discussed with patient, Daniella, and Dr. Carlson. -Patient is DNR. -Patient's goal is to get to SNF for rehab in hopes of improving enough to go home. If patient does not do well in rehab, has another acute event, or even if he improves enough to go home, he does not want to return to hospital for life- sustaining treatment. -POLST form completed as follows: DNR, comfort measures only, abx with comfort as the goal, no artificial hydration/nutrition. -Patient is okay with continuing current medical management and finishing abx course while here. He wants to get as well as he can before transferring to SNF for rehab. Thank you kindly for this consult. Please contact me with any further palliative care needs. Total time spent 70 minutes. Greater than 50% of time with the patient was spent on counseling and coordinating care.
[2017-07-23] MEDS: DOXYCYCLINE HYCLATE 100 MG CAP PO SCH (20:02)
[2017-07-23] MEDS: SIMVASTATIN 40 MG TAB PO SCH (20:03)
[2017-07-24] VITALS (7 sets, daily range): BP systolic 110–124; BP diastolic 67–72; PULSE 78–92; TEMP 36.8–37.5; O2SAT 93–100
[2017-07-24 05:48] LABS: HEMATOCRIT 31.2 % (42-52); HEMOGLOBIN 10.3 g/dL (14.0-18.0); MEAN CELL VOLUME 97.2 fL (80-100); MEAN CORPUSCULAR HEMOGLOBIN 32.1 pg (25-34); MEAN PLATELET VOLUME 9.5 fL (7.4-10.4); PLATELET COUNT 160 K/uL (130-400); RED CELL DISTRIBUTION WIDTH CV 13.1 % (11.5-14.5); RED CELL DISTRIBUTION WIDTH SD 46.4 fL (36.4-46.3); WHITE BLOOD COUNT 8.86 K/uL (4.8-10.8)
[2017-07-24] MEDS: HEPARIN SOD 5000 UNIT/0.5 ML CARP SQ SCH ×3 (05:53→22:06)
[2017-07-24] MEDS: PIPERACILL/TAZOBAC IV 4.5 GM in DEXTROSE 5% 100ML 100 ML IV SCH ×3 (05:55→22:34)
[2017-07-24] MEDS: LEVOTHYROXINE 88 MCG TAB PO SCH (05:56)
[2017-07-24 06:26] LABS: CALCIUM 8.8 mg/dl (8.5-10.1); CREATININE 1.16 mg/dl (0.60-1.40); POTASSIUM 3.9 mmol/L (3.5-5.1)
[2017-07-24] MEDS: INSULIN ASPART 100 UNITS/ML 3 ML PEN SC SCH ×4 (08:29→22:05)
[2017-07-24] MEDS: ASPIRIN 81 MG ECTAB PO SCH (08:34)
[2017-07-24] MEDS: CEROVITE ADV FORMULA TAB PO SCH ×2 (08:35→21:57)
[2017-07-24] MEDS: POLYETHYLENE (MIRALAX) 17 GM PACK PO SCH (08:35)
[2017-07-24] MEDS: METOPROLOL TARTRATE 25 MG TAB PO SCH ×2 (08:35→21:58)
[2017-07-24] MEDS: DOXYCYCLINE HYCLATE 100 MG CAP PO SCH ×2 (08:35→21:59)
[2017-07-24] MEDS ORDERED: TRAMADOL HCL 50 MG TAB PO PRN (09:00)
--- NOTE | 2017-07-24 09:01 | Progress Note ---
Subjective Date of Service: Jul 24, 2017. Subjective Pt evaluation today including: conversation w/ patient, physical exam, lab review, review of studies, review of inpatient medication list Saw/examined the patient in room 221 Tells me he's doing okay using accessory muscles to breath though, and still requiring supplemental O2 +pain in the LLE Problem List Medical Problems: (1) Acute bronchitis Status: Acute (2) Bronchitis Status: Acute (3) Confusion Status: Acute (4) Elevated troponin Status: Acute (5) Fever Status: Acute (6) Urinary tract infection associated with indwelling urethralcatheter Status: Acute (7) UTI (urinary tract infection) Status: Acute (8) UTI (urinary tract infection) Status: Acute (9) UTI (urinary tract infection) Status: Acute (10) UTI (urinary tract infection) Status: Acute Review of Systems Constitutional: No fever, No chills Respiratory: No cough, No sputum, No wheezing, No shortness of breath, No dyspnea on exertion, No dyspnea at rest, No hemoptysis Cardiac: No chest pain, No edema, No palpitations Heme: No abnormal bleeding/bruising Medications Current Inpatient Medications Medications (Trade) Dose Ordered Sig/Robert Route Start Time Stop Time Status Last Admin Dose Admin Ondansetron HCl (Zofran Inj) 4 mg Q6H PRN IV 07/18/17 14:15 08/17/17 14:14 Glucose (Glucose 40% Gel) 15-30 GRAMS 15 GRAMS... UD PRN PO 07/18/17 14:15 08/17/17 14:14 Glucose (Glucose Chew Tab) 4-8 Tablets 4 Tabl... UD PRN PO 07/18/17 14:15 08/17/17 14:14 Dextrose (Dextrose 50% 50ML Syringe) 25-50ML OF 50% DW IV FOR... UD PRN IV 07/18/17 14:15 08/17/17 14:14 Glucagon (Glucagon Inj) 1 mg UD PRN SQ 07/18/17 14:15 08/17/17 14:14 Aspirin (Ecotrin Tab) 81 mg QAM PO 07/19/17 09:00 08/18/17 08:59 07/24/17 08:34 81 MG Levothyroxine Sodium (Synthroid Tab) 176 mcg DAILYBB PO 07/19/17 06:00 08/18/17 05:59 07/24/17 05:56 176 MCG Multivitamins/ Minerals (Multivitamin W/ Minerals Tab) 1 tab BID PO 07/18/17 21:00 08/17/17 20:59 07/24/17 08:35 1 TAB Risperidone (Risperdal Tab) 0.5 mg Q12 PRN PO 07/18/17 14:15 08/17/17 14:14 07/23/17 20:02 0.5 MG Simvastatin (Zocor Tab) 40 mg HS PO 07/18/17 21:00 08/17/17 20:59 07/23/17 20:03 40 MG Polyethylene (Miralax Powder Packet) 17 gm QAM PO 07/19/17 09:00 08/18/17 08:59 07/24/17 08:35 17 GM Insulin Aspart (novoLOG ASPART) SLIDING SCALE G... ACHS SC 07/18/17 16:15 08/17/17 16:14 07/24/17 08:29 2 UNITS Miscellaneous Information (Consult) 1 ea UD PRN N/A 07/19/17 01:00 08/18/17 00:59 Heparin Sodium (Porcine) (Heparin Sq 5000 Unit/0.5ml) 5,000 unit Q8 SQ 07/20/17 22:00 08/19/17 21:59 07/24/17 05:53 5,000 UNIT Piperacillin Sod/ Tazobactam Sod 4.5 gm/Dextrose 120 ml @ 30 mls/hr Q8 IV 07/21/17 14:00 07/26/17 05:59 07/24/17 05:55 30 MLS/HR Metoprolol Tartrate (Lopressor Tab) 25 mg BID PO 07/22/17 21:00 08/18/17 20:59 07/24/17 08:35 25 MG Furosemide 40 mg/ Syringe 4 ml @ 4 mls/min DAILY IV 07/23/17 09:00 08/22/17 08:59 Future Hold 07/23/17 08:24 4 MLS/MIN Lidocaine/ Prilocaine (Emla 2.5% Crm) 1 ea UD PRN EXT 07/23/17 09:45 08/22/17 09:44 07/23/17 11:06 1 EA Acetaminophen (Tylenol Tab) 650 mg Q6H PRN PO 07/23/17 10:00 08/22/17 09:29 07/23/17 20:07 650 MG Doxycycline Hyclate (Vibramycin Cap) 100 mg BID PO 07/23/17 21:00 08/04/17 20:59 07/24/17 08:35 100 MG Furosemide 40 mg/ Syringe 4 ml @ 4 mls/min ONE ONCE IV 07/24/17 09:00 07/24/17 09:01 UNV Objective Vital Signs Date Time Temp Pulse Resp B/P (MAP) Pulse Ox O2 Delivery O2 Flow Rate FiO2 07/24/17 04:00 Nasal Cannula 2.0 07/24/17 02:55 37.5 91 20 123/67 (85) 94 Nasal Cannula 2.0 07/24/17 00:00 Nasal Cannula 2.0 07/23/17 23:00 37.1 85 20 109/66 (80) 94 Nasal Cannula 2.0 07/23/17 20:10 Nasal Cannula 2.0 07/23/17 19:25 36.7 66 18 137/70 (92) 96 Room Air 07/23/17 18:55 37.1 83 30 133/72 (92) 100 Nasal Cannula 2.0 07/23/17 16:20 Nasal Cannula 2.0 07/23/17 15:36 37.1 80 20 122/70 (87) 92 Room Air 07/23/17 12:00 Nasal Cannula 2.0 07/23/17 10:53 37.3 81 20 117/72 (87) 95 Nasal Cannula 4.0 Physical Exam General Appearance: no apparent distress Respiratory/Chest: no respiratory distress, no accessory muscle use, + decreased breath sounds, + rales Cardiovascular: regular rate, rhythm, no edema, + systolic murmur Extremities: normal inspection, no pedal edema, + pertinent finding (warm LLE, mildly erythematous) Neurologic/Psychiatric: no motor/sensory deficits, alert, normal mood/affect Laboratory Results Last 24 Hours Test 07/23/17 09:30 07/23/17 09:55 07/23/17 10:56 07/23/17 16:23 Vancomycin Level Trough 20.2 mcg/ml White Blood Count 8.16 K/uL Red Blood Count 3.35 M/uL Hemoglobin 10.7 g/dL Hematocrit 32.6 % Mean Corpuscular Volume 97.3 fL Mean Corpuscular Hemoglobin 31.9 pg Mean Corpuscular Hemoglobin Concent 32.8 g/dl RDW Standard Deviation 47.0 fL RDW Coefficient of Variation 13.3 % Platelet Count 123 K/uL Mean Platelet Volume 8.6 fL Sodium Level 136 mmol/L Potassium Level 3.8 mmol/L Chloride Level 101 mmol/L Carbon Dioxide Level 30 mmol/L Anion Gap 5.0 mmol/L Blood Urea Nitrogen 32 mg/dl Creatinine 1.19 mg/dl Est Creatinine Clear Calc Drug Dose 55.3 ml/min Estimated GFR () 63.7 Estimated GFR (Non- 55.0 BUN/Creatinine Ratio 26.7 Random Glucose 196 mg/dl Calcium Level 9.1 mg/dl Bedside Glucose 181 mg/dl 204 mg/dl Test 07/23/17 19:58 07/24/17 05:20 07/24/17 06:50 Bedside Glucose 187 mg/dl 177 mg/dl White Blood Count 8.86 K/uL Red Blood Count 3.21 M/uL Hemoglobin 10.3 g/dL Hematocrit 31.2 % Mean Corpuscular Volume 97.2 fL Mean Corpuscular Hemoglobin 32.1 pg Mean Corpuscular Hemoglobin Concent 33.0 g/dl RDW Standard Deviation 46.4 fL RDW Coefficient of Variation 13.1 % Platelet Count 160 K/uL Mean Platelet Volume 9.5 fL Sodium Level 141 mmol/L Potassium Level 3.9 mmol/L Chloride Level 103 mmol/L Carbon Dioxide Level 30 mmol/L Anion Gap 8.0 mmol/L Blood Urea Nitrogen 29 mg/dl Creatinine 1.16 mg/dl Est Creatinine Clear Calc Drug Dose 56.8 ml/min Estimated GFR () 65.7 Estimated GFR (Non- 56.7 BUN/Creatinine Ratio 25.3 Random Glucose 163 mg/dl Calcium Level 8.8 mg/dl Chemistry Specimen Hemolysis Assessment and Plan This is an obese 87 year old male with a PMH of severe aortic stenosis, paroxysmal atrial fibrillation, hx. 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 He was subsequently transferred to the ICU due to worsening metabolic encephalopathy and acute respiratory failure. Metabolic Encephalopathy secondary to Complicated UTI in the setting of a Chronic Indwelling Catheter 07/24 plan is to d/c Zosyn tomorrow will continue doxycycline as per ID 07/23 we will likely d/c Zosyn in about 1-2 days will continue doxycycline for prolonged cellulitis 07/22 appreciate ID input will d/c Zosyn after 7 days can likely d/c Vanco Doxycycline for the L LE cellulitis 07/21 patient with worsening encephalopathy/delirium. currently on Vancomycin/Zosyn/Doxycycline regimen For now, we should continue this, will consult ID for further input. Left Lower Extremity Cellulitis 07/22 continue Doxycycline 07/[address] performed - Considerable soft tissue edematous change suggesting a diffuse cellulitis warm to touch, erythematous leg Doppler suggested no acute DVT will continue abx; ID consulted Left Plantar Foot Wound 07/22 appreciate podiatry input no further surgical intervention necessary at this time 07/21 appreciate wound care nurse input the wound is significant and may need debridement/surgical evaluation unfortunately, wound care physician is not in house will consult podiatry for further input Acute Hypoxic Respiratory Failure in the setting of Valvular Heart Disease 07/24 will give a dose of IV Lasix today as he seems to be using accessory muscles to breath monitor labs appreciate cardiology input 07/23 continue IV Lasix for now monitor breathing status check labs for K and kidney function 07/22 switched back to IV Lasix 40mg daily monitor output 07/21 patient meets hypoxic respiratory failure criteria - tachypnea; pulse ox <90% on RA CXR suggests volume overload; hx. of severe aortic stenosis patient worsened and was transferred from tele to ICU; placed on bipap now back on O2 via nasal cannula was on 40mg of IV Lasix, now switched to PO Lasix 40mg daily Paroxysmal Atrial Fibrillation with Rapid Ventricular Response 07/23 current Lopressor dose is 25mg BID, monitor HRs which have been labile if blood pressure allows, can titrate up if needed 07/22 has had issues with rapid ventricular response during this admission, likely worsened with infection IV Lopressor will be switched to PO b-wil has had multiple PVCs on monitor during exam will give Potassium and Magnesium and recheck these in AM DM2 hx. of diabetes, diet controlled last Ha1c ~ 6.6% BSGs on presentation elevated, given SQ regular insulin will add a sliding scale, check an Ha1c in AM Hypothyroidism continue Synthroid DVT ppx subq heparin DNR - as per discussion with family; family states these are patient wishes
[2017-07-24] MEDS ORDERED: FUROSEMIDE INJ 40 MG in SYRINGE 0 ML IV ONE (09:30)
--- NOTE | 2017-07-24 15:53 | PROGRESS NOTE ---
DATE: 07/24/2017 CARDIOLOGY CONSULTATION FOLLOWUP NOTE SUBJECTIVE: The patient is seen and examined in presence of family. The patient appears slightly less vigorous today. Notes no specific complaints other than aches and pains in THE lower extremities. Has manifested diuresis throughout the day today. Notes no productive cough though inspiratory effort appears reduced. OBJECTIVE: VITAL SIGNS: Heart rate is 78, blood pressure is 117/67, O2 saturations 93% on 2 liters nasal cannula. HEENT: Normocephalic, atraumatic. NECK: Thick. There is no distinct jugular venous distention. LUNGS: Reveal diminished breath sounds diffusely. CARDIOVASCULAR: Regular with a grade 2/6 soft systolic murmur, distant. There is no S3 gallop. ABDOMEN: Soft. EXTREMITIES: Reveal persistent 2+ lower extremity edema, left slightly greater than right. LABORATORY DATA: Today - sodium is 141, potassium is 3.9, chloride is 103, bicarb is 30, BUN is 29, creatinine is 1.1. Hemoglobin is 10.3. IMPRESSION: Complicated 87-year-old male with issues as follows: 1. Acute metabolic encephalopathy secondary to Eustachian coli urinary tract infection/possible sepsis. 2. Left lower extremity cellulitis. 3. Acute decompensated heart failure secondary to critical calcific aortic valve disease. 4. History of paroxysmal atrial fibrillation, currently in sinus rhythm. PLAN AND RECOMMENDATIONS: The patient once again has been marginally compensated, heart rates and rhythms appear controlled, though patient appears slightly less vigorous today. Edema has not worsened, volume status appears stable. He received a single dose of IV furosemide today as appropriate. Will reassess in a.m., possibly reinstitute oral diuretics with ultimate goals to return to home, per the patient and family wishes.
[2017-07-24] MEDS: SIMVASTATIN 40 MG TAB PO SCH (21:57)
[2017-07-24] MEDS: ACETAMINOPHEN 325 MG TAB PO PRN (21:59)
[2017-07-25] VITALS (7 sets, daily range): BP systolic 118–132; BP diastolic 71–75; PULSE 71–85; TEMP 36.9–37.7; O2SAT 96–100
[2017-07-25] MEDS: PIPERACILL/TAZOBAC IV 4.5 GM in DEXTROSE 5% 100ML 100 ML IV SCH (05:05)
[2017-07-25] MEDS: HEPARIN SOD 5000 UNIT/0.5 ML CARP SQ SCH ×2 (05:07→12:29)
[2017-07-25] MEDS: LEVOTHYROXINE 88 MCG TAB PO SCH (05:08)
[2017-07-25 05:50] LABS: HEMATOCRIT 34.5 % (42-52); HEMOGLOBIN 10.9 g/dL (14.0-18.0); MEAN CELL VOLUME 98.9 fL (80-100); MEAN CORPUSCULAR HEMOGLOBIN 31.2 pg (25-34); MEAN CORPUSCULAR HGB CONC 31.6 g/dl (32-36); MEAN PLATELET VOLUME 9.5 fL (7.4-10.4); PLATELET COUNT 182 K/uL (130-400); RED CELL DISTRIBUTION WIDTH SD 46.8 fL (36.4-46.3); WHITE BLOOD COUNT 9.35 K/uL (4.8-10.8)
[2017-07-25 06:19] LABS: CREATININE 1.18 mg/dl (0.60-1.40); PHOSPHORUS 3.2 mg/dl (2.5-4.9)
[2017-07-25] MEDS: DOXYCYCLINE HYCLATE 100 MG CAP PO SCH (08:44)
[2017-07-25] MEDS: INSULIN ASPART 100 UNITS/ML 3 ML PEN SC SCH ×3 (08:44→17:16)
[2017-07-25] MEDS: POLYETHYLENE (MIRALAX) 17 GM PACK PO SCH (08:44)
[2017-07-25] MEDS: ASPIRIN 81 MG ECTAB PO SCH (08:44)
[2017-07-25] MEDS: METOPROLOL TARTRATE 25 MG TAB PO SCH (08:45)
[2017-07-25] MEDS: CEROVITE ADV FORMULA TAB PO SCH (08:45)
[2017-07-25] MEDS: ACETAMINOPHEN 325 MG TAB PO PRN ×2 (08:50→16:39)
[2017-07-25] MEDS ORDERED: DXY100 PO (12:30)
[2017-07-25] MEDS ORDERED: LPR25 PO (12:30)
[2017-07-25] MEDS ORDERED: FURO40TA3 PO (12:30)
--- NOTE | 2017-07-25 12:33 | Progress Note ---
Subjective Date of Service: Jul 25, 2017. Subjective Pt evaluation today including: conversation w/ patient, physical exam, lab review, review of studies, review of inpatient medication list Saw/examined the patient in room 221 No problems/issues to note today Denies shortness of breath Gets confused nocturnally Denies chest pain +left lower leg pain persists, but improving Problem List Medical Problems: (1) Acute bronchitis Status: Acute (2) Bronchitis Status: Acute (3) Confusion Status: Acute (4) Elevated troponin Status: Acute (5) Fever Status: Acute (6) Urinary tract infection associated with indwelling urethralcatheter Status: Acute (7) UTI (urinary tract infection) Status: Acute (8) UTI (urinary tract infection) Status: Acute (9) UTI (urinary tract infection) Status: Acute (10) UTI (urinary tract infection) Status: Acute Review of Systems Constitutional: No fever, No chills Respiratory: No shortness of breath Cardiac: No chest pain Abdomen: No pain, No nausea, No vomiting, No diarrhea Musculoskeletal: + see HPI, + joint pain Medications Current Inpatient Medications Medications (Trade) Dose Ordered Sig/Robert Route Start Time Stop Time Status Last Admin Dose Admin Ondansetron HCl (Zofran Inj) 4 mg Q6H PRN IV 07/18/17 14:15 08/17/17 14:14 Glucose (Glucose 40% Gel) 15-30 GRAMS 15 GRAMS... UD PRN PO 07/18/17 14:15 08/17/17 14:14 Glucose (Glucose Chew Tab) 4-8 Tablets 4 Tabl... UD PRN PO 07/18/17 14:15 08/17/17 14:14 Dextrose (Dextrose 50% 50ML Syringe) 25-50ML OF 50% DW IV FOR... UD PRN IV 07/18/17 14:15 08/17/17 14:14 Glucagon (Glucagon Inj) 1 mg UD PRN SQ 07/18/17 14:15 08/17/17 14:14 Aspirin (Ecotrin Tab) 81 mg QAM PO 07/19/17 09:00 08/18/17 08:59 07/25/17 08:44 81 MG Levothyroxine Sodium (Synthroid Tab) 176 mcg DAILYBB PO 07/19/17 06:00 08/18/17 05:59 07/25/17 05:08 176 MCG Multivitamins/ Minerals (Multivitamin W/ Minerals Tab) 1 tab BID PO 07/18/17 21:00 08/17/17 20:59 07/25/17 08:45 1 TAB Risperidone (Risperdal Tab) 0.5 mg Q12 PRN PO 07/18/17 14:15 08/17/17 14:14 07/23/17 20:02 0.5 MG Simvastatin (Zocor Tab) 40 mg HS PO 07/18/17 21:00 08/17/17 20:59 07/24/17 21:57 40 MG Polyethylene (Miralax Powder Packet) 17 gm QAM PO 07/19/17 09:00 08/18/17 08:59 07/25/17 08:44 17 GM Insulin Aspart (novoLOG ASPART) SLIDING SCALE G... ACHS SC 07/18/17 16:15 08/17/17 16:14 07/25/17 12:27 5 UNITS Heparin Sodium (Porcine) (Heparin Sq 5000 Unit/0.5ml) 5,000 unit Q8 SQ 07/20/17 22:00 08/19/17 21:59 07/25/17 12:29 5,000 UNIT Metoprolol Tartrate (Lopressor Tab) 25 mg BID PO 07/22/17 21:00 08/18/17 20:59 07/25/17 08:45 25 MG Furosemide 40 mg/ Syringe 4 ml @ 4 mls/min DAILY IV 07/23/17 09:00 08/22/17 08:59 Future Hold 07/23/17 08:24 4 MLS/MIN Lidocaine/ Prilocaine (Emla 2.5% Crm) 1 ea UD PRN EXT 07/23/17 09:45 08/22/17 09:44 07/23/17 11:06 1 EA Acetaminophen (Tylenol Tab) 650 mg Q6H PRN PO 07/23/17 10:00 08/22/17 09:29 07/25/17 08:50 650 MG Doxycycline Hyclate (Vibramycin Cap) 100 mg BID PO 07/23/17 21:00 08/04/17 20:59 07/25/17 08:44 100 MG Tramadol HCl (Ultram Tab) 50 mg Q4H PRN PO 07/24/17 09:00 08/23/17 08:59 07/24/17 13:36 50 MG Furosemide (Lasix Tab) 20 mg DAILY PO 07/26/17 09:00 08/25/17 08:59 Objective Vital Signs Date Time Temp Pulse Resp B/P (MAP) Pulse Ox O2 Delivery O2 Flow Rate FiO2 07/25/17 12:24 37.7 71 18 132/75 (94) 98 Nasal Cannula 2.0 07/25/17 08:10 37.3 78 20 132/75 (94) 99 Nasal Cannula 2.0 07/25/17 08:00 Nasal Cannula 2.0 07/25/17 04:19 37.1 85 20 118/71 (87) 96 Nasal Cannula 2.0 07/25/17 04:00 96 Nasal Cannula 2.0 07/25/17 00:00 96 Nasal Cannula 2.0 07/24/17 23:44 37.2 81 18 110/70 (83) 96 Nasal Cannula 2.0 07/24/17 20:00 94 Nasal Cannula 2.0 07/24/17 19:23 37.5 89 20 119/68 (85) 95 Nasal Cannula 2.0 07/24/17 16:00 Nasal Cannula 2.0 07/24/17 15:24 36.8 78 18 117/67 (84) 93 Nasal Cannula 2.0 Physical Exam General Appearance: no apparent distress, + obese ENT: hearing grossly normal Respiratory/Chest: no respiratory distress, no accessory muscle use, + decreased breath sounds Cardiovascular: regular rate, rhythm, no edema, + systolic murmur Extremities: normal inspection, no pedal edema, + pertinent finding (LLE warm to touch, improving) Neurologic/Psychiatric: no motor/sensory deficits, alert, normal mood/affect Laboratory Results Last 24 Hours Test 07/24/17 16:40 07/24/17 20:17 07/25/17 05:21 07/25/17 06:46 Bedside Glucose 165 mg/dl 272 mg/dl 178 mg/dl White Blood Count 9.35 K/uL Red Blood Count 3.49 M/uL Hemoglobin 10.9 g/dL Hematocrit 34.5 % Mean Corpuscular Volume 98.9 fL Mean Corpuscular Hemoglobin 31.2 pg Mean Corpuscular Hemoglobin Concent 31.6 g/dl RDW Standard Deviation 46.8 fL RDW Coefficient of Variation 13.0 % Platelet Count 182 K/uL Mean Platelet Volume 9.5 fL Sodium Level 140 mmol/L Potassium Level 4.0 mmol/L Chloride Level 101 mmol/L Carbon Dioxide Level 34 mmol/L Anion Gap 6.0 mmol/L Blood Urea Nitrogen 27 mg/dl Creatinine 1.18 mg/dl Est Creatinine Clear Calc Drug Dose 55.9 ml/min Estimated GFR () 64.4 Estimated GFR (Non- 55.5 BUN/Creatinine Ratio 22.7 Random Glucose 166 mg/dl Calcium Level 9.0 mg/dl Phosphorus Level 3.2 mg/dl Magnesium Level 2.0 mg/dl Test 07/25/17 11:17 Bedside Glucose 170 mg/dl Assessment and Plan This is an obese 87 year old male with a PMH of severe aortic stenosis, paroxysmal atrial fibrillation, hx. 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 He was subsequently transferred to the ICU due to worsening metabolic encephalopathy and acute respiratory failure. Metabolic Encephalopathy secondary to Complicated UTI in the setting of a Chronic Indwelling Catheter 07/25 doxycycline 100mg BID for the next 10 days to total 2 weeks all other abx. discontinued 07/24 plan is to d/c Zosyn tomorrow will continue doxycycline as per ID 07/23 we will likely d/c Zosyn in about 1-2 days will continue doxycycline for prolonged cellulitis 07/22 appreciate ID input will d/c Zosyn after 7 days can likely d/c Vanco Doxycycline for the L LE cellulitis 07/21 patient with worsening encephalopathy/delirium. currently on Vancomycin/Zosyn/Doxycycline regimen For now, we should continue this, will consult ID for further input. Left Lower Extremity Cellulitis 07/22 continue Doxycycline 07/[address] performed - Considerable soft tissue edematous change suggesting a diffuse cellulitis warm to touch, erythematous leg Doppler suggested no acute DVT will continue abx; ID consulted Left Plantar Foot Wound 07/22 appreciate podiatry input no further surgical intervention necessary at this time 07/21 appreciate wound care nurse input the wound is significant and may need debridement/surgical evaluation unfortunately, wound care physician is not in house will consult podiatry for further input Acute Hypoxic Respiratory Failure in the setting of Valvular Heart Disease 07/24 will give a dose of IV Lasix today as he seems to be using accessory muscles to breath monitor labs appreciate cardiology input 07/23 continue IV Lasix for now monitor breathing status check labs for K and kidney function 07/22 switched back to IV Lasix 40mg daily monitor output 07/21 patient meets hypoxic respiratory failure criteria - tachypnea; pulse ox <90% on RA CXR suggests volume overload; hx. of severe aortic stenosis patient worsened and was transferred from tele to ICU; placed on bipap now back on O2 via nasal cannula was on 40mg of IV Lasix, now switched to PO Lasix 40mg daily Paroxysmal Atrial Fibrillation with Rapid Ventricular Response 07/23 current Lopressor dose is 25mg BID, monitor HRs which have been labile if blood pressure allows, can titrate up if needed 07/22 has had issues with rapid ventricular response during this admission, likely worsened with infection IV Lopressor will be switched to PO b-wil has had multiple PVCs on monitor during exam will give Potassium and Magnesium and recheck these in AM DM2 hx. of diabetes, diet controlled last Ha1c ~ 6.6% BSGs on presentation elevated, given SQ regular insulin will add a sliding scale, check an Ha1c in AM Hypothyroidism continue Synthroid DVT ppx subq heparin DNR - as per discussion with family; family states these are patient wishes
--- NOTE | 2017-07-25 12:36 | Discharge Instructions ---
Discharge Instructions Date of Service Jul 25, 2017. Admission Reason for Admission: Complicated Uti,Hypoxia Discharge Discharge Diagnosis / Problem: Complicated UTI, Hypoxia Discharge Goals Goal(s): Decrease discomfort, Improve function, Diagnostic testing, Therapeutic intervention Activity Recommendations Activity Level: Up Ad Rae Therapies: Physical Therapy, Occupational Therapy . Additional Information Patient informed of condition: Yes Advance Directives: Yes DNR: Yes Level of Care: Skilled Communicable Disease: No Prognosis: Stable Oxygen at (LPM): 2L [place] Catheter: Yes Instructions / Follow-Up Instructions / Follow-Up Patient has chronic indwelling catheter presented with UTI, LLE cellulitis Critical Aortic Valve - heart failure Will want home hospice after stay at [facility] Current Hospital Diet Patient's current hospital diet: Diabetes Type 2 Diet, AHA Diet (Heart Healthy) Discharge Diet Recommended Diet: AHA Diet (Heart Healthy), Diabetes Type 2 Diet Pending Studies Studies pending at discharge: no Physician Orders On Transfer POLST Discussion: with POLST completion Laboratory Results Hemoglobin A1c Test 07/19/17 03:02 Range/Units Estimated Average Glucose 140 mg/dl Hemoglobin A1c 6.5 H 4.5-5.6 % Medical Emergencies . Who to Call and When: Medical Emergencies: If at any time you feel your situation is an emergency, please call 911 immediately. . Non-Emergent Contact Non-Emergency issues call your: Primary Care Provider . . "Provider Documentation" section prepared by Darren Carlson. . Core Measure Problem Core Measures: None
--- NOTE | 2017-07-25 12:39 | Discharge Summary ---
Discharge Summary Date of Service Jul 25, 2017. Discharge Summary Admission Date: Jul 18, 2017 at 14:16 Discharge Date: Jul 25, 2017 Discharge Disposition: longterm facility Principal Diagnosis: Metabolic Encephalopathy with UTI Chronic Indwelling Catheter Left Lower Extremity Cellulitis Critical Aortic Stenosis Decompensated Heart Failure - improved Paroxysmal A. Fib with RVR - improved Medication Reconciliation New Medications: Doxycycline Hyclate (Doxycycline Hyclate) 100 Mg Cap 100 MG PO BID for 10 Days, #20 CAP Metoprolol Tartrate (Lopressor) 25 Mg Tab 25 MG PO BID for 30 Days, #60 TAB Changed Medications: Furosemide (Lasix) 40 Mg Tab 1 TAB PO DAILY for 30 Days, #30 TAB 5 Refills (Changed from: Furosemide (Lasix) 20 Mg Tab 20 Mg PO DAILY) Continued Medications: Aspirin Enteric Coated (Ecotrin Or Generic) 81 Mg Tab 81 MG PO QAM, TAB Levothyroxine Sodium (Synthroid) 88 Mcg Tab 2 TAB PO QAM, TAB Lidocaine-Prilocaine (Lidocaine/Prilocaine) 1 Cre Cre 1 APPLN TOP UD PRN for Pain, #30 GM 1 Refill Applies to heels in evning as needed Ocuvite Preservision (Ocuvite Preservision) 1 Tab Tab 1 TAB PO BID, TAB Polyethylene Glycol 3350 (Miralax) 1 Pow Pow 17 GM PO DAILY, GM Risperidone (Risperidone) 0.5 Mg Tab 0.5 MG PO Q12 PRN for agitation , #60 TAB Simvastatin (Zocor) 40 Mg Tab 40 MG PO HS, TAB Admission Information HPI (per Admitting provider): This is an obese 87 year old male with a PMH of severe aortic stenosis, paroxysmal atrial fibrillation, hx. 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 As per patient, he felt chills, cold this morning and his told him to come to the hospital. As per patient's , he gets short of breath at night and during exertion. Patient is denying this and states he feels fine now. Denies all symptoms at this time and wants to go home. On presentation, patient noted to have dirty UA - patient states he's had issues with UTIs after having the indwelling catheter placed about 2 years prior. Also on presentation, he was noted to have hypoxia ~ 88% on RA. Denies SOB/chest pain, denies nausea/vomiting/diarrhea, denies fevers. 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 He was subsequently transferred to the ICU due to worsening metabolic encephalopathy and acute respiratory failure. Metabolic Encephalopathy secondary to Complicated UTI in the setting of a Chronic Indwelling Catheter 07/25 doxycycline 100mg BID for the next 10 days to total 2 weeks all other abx. discontinued 07/24 plan is to d/c Zosyn tomorrow will continue doxycycline as per ID 07/23 we will likely d/c Zosyn in about 1-2 days will continue doxycycline for prolonged cellulitis 07/22 appreciate ID input will d/c Zosyn after 7 days can likely d/c Vanco Doxycycline for the L LE cellulitis 07/21 patient with worsening encephalopathy/delirium. currently on Vancomycin/Zosyn/Doxycycline regimen For now, we should continue this, will consult ID for further input. Left Lower Extremity Cellulitis 07/22 continue Doxycycline 07/[address] performed - Considerable soft tissue edematous change suggesting a diffuse cellulitis warm to touch, erythematous leg Doppler suggested no acute DVT will continue abx; ID consulted Left Plantar Foot Wound 07/22 appreciate podiatry input no further surgical intervention necessary at this time 07/21 appreciate wound care nurse input the wound is significant and may need debridement/surgical evaluation unfortunately, wound care physician is not in house will consult podiatry for further input Acute Hypoxic Respiratory Failure in the setting of Valvular Heart Disease 07/24 will give a dose of IV Lasix today as he seems to be using accessory muscles to breath monitor labs appreciate cardiology input 07/23 continue IV Lasix for now monitor breathing status check labs for K and kidney function 07/22 switched back to IV Lasix 40mg daily monitor output 07/21 patient meets hypoxic respiratory failure criteria - tachypnea; pulse ox <90% on RA CXR suggests volume overload; hx. of severe aortic stenosis patient worsened and was transferred from tele to ICU; placed on bipap now back on O2 via nasal cannula was on 40mg of IV Lasix, now switched to PO Lasix 40mg daily Paroxysmal Atrial Fibrillation with Rapid Ventricular Response 07/23 current Lopressor dose is 25mg BID, monitor HRs which have been labile if blood pressure allows, can titrate up if needed 07/22 has had issues with rapid ventricular response during this admission, likely worsened with infection IV Lopressor will be switched to PO b-wil has had multiple PVCs on monitor during exam will give Potassium and Magnesium and recheck these in AM DM2 hx. of diabetes, diet controlled last Ha1c ~ 6.6% BSGs on presentation elevated, given SQ regular insulin will add a sliding scale, check an Ha1c in AM Hypothyroidism continue Synthroid DVT ppx subq heparin DNR - as per discussion with family; family states these are patient wishes Total time spent on discharge = 45 minutes This includes examination of the patient, discharge planning, medication reconciliation, and communication with other providers. Discharge Instructions Patient has chronic indwelling catheter presented with UTI, LLE cellulitis Critical Aortic Valve - heart failure Will want home hospice after stay at [facility]
[2017-07-26] MEDS ORDERED: FUROSEMIDE 20 MG TAB PO SCH (09:00)
--- NOTE | 2017-07-29 12:17 | EDITING REQUIRED CODING QUERY ---
SEPSIS To promote full compliance with coding requirements relating to patient care, physician participation is requested in all cases of activities volunteer uncertainty. Please assist us with the question(s) below: In responding to this query, please exercise your independent professional judgement. The fact that a question is asked does not imply that any particular answer is desired or expected. We appreciate your clarification on this issue. Throughout the medical record, you have clearly documented a localized infection and your patient has clinical evidence of a generalized sepsis or severe sepsis. The term urosepsis is a nonspecific entity and is coded as an UTI. If the patient has sepsis, severe sepsis, from an urinary source or some other source, please clarify in your response below. The medical record reflects the following clinical findings: Patient admitted with fever, acute respiratory failure,UTI. Please document the diagnosis you were treating. Thank you! TAM Leiva [facility] ( )Bacteremia (Nonspecific laboratory finding of bacteria in the blood) Specify Organism ( ) Present on Admission ( ) Not present on admission ( ) Unable to clinically determine ( ) Septicemia (Systemic disease associated with the presence of pathogenic microorganisms in the blood): Specify Organism ( ) Present on Admission () Not present on admission ( ) Unable to clinically determine (X ) Sepsis Specify Organism - e. coli Specify Associated Condition/Diagnosis ( ) Present on Admission ( ) Not present on admission ( ) Unable to clinically determine ( ) Severe Sepsis (Sepsis associated with acute organ dysfunction) Specify Organism Specify Associated Condition/Diagnosis ( ) Present on Admission ( ) Not present on admission ( ) Unable to clinically determine ( ) Septic Shock (Severe sepsis with acute circulatory failure, unexplained by other causes) ( ) Present on Admission ( ) Not present on admission ( ) Unable to clinically determine () Other, patient has:
--- NOTE | 2017-07-29 12:21 | EDITING REQUIRED CODING QUERY ---
CODING QUERY To promote full compliance with coding requirements relating to patient care, provider participation is requested in all cases of diagnostic tech uncertainty. Please assist us with the question(s) below: Coding Question(s): Patient admitted with E.Coli UTI and indwelling Urinary Cathete. D/S states " Complicated UTI in the setting of urinary catheter". Please check below the etiology of the UTI is known or suspected. Thanks for your help! TAM Leiva [facility] Physician's Response(s): X The UTI was caused by the Urinary Catheter The UTI was not caused by the Urinary Catheter Cannot clinically correlate if the Urinary Catheter was responsible for the UTI Other: Please document: Principal Diagnosis: "_that condition established after study, to be chiefly responsible for occasioning the admission of the patient to the hospital for care." Co-Existing Principal Diagnosis: "_when two or more diagnoses equally meet the criteria for principal diagnosis as determined by the circumstances of admission, diagnostic work up, and/or therapy provided, and the Alphabetic Index, Tabular List, or another coding guideline does not provide sequencing direction, any one of the diagnoses may be sequenced first." "When the physician has documented what appears to be a current diagnosis in the body of the record, but has not included the diagnosis in the final diagnostic statement, the physician should be asked whether the diagnosis should be added." ([facility] 2 QTR90. p3-4)
== END 2017-07-25 18:25 | DRG 698 ==
LOC: EDSEX 10:10 → EDBD 10:10 → C.EDB 10:11 → UNDOADMIN 14:16 → C.2T 14:16 → ENRESERV 16:54 → C.MSICU 07-19 19:07 → C.2T 07-19 19:07 → ENRESERV 07-21 16:05 → C.2T 07-21 16:59 → C.MSICU 07-21 16:59
PROVIDERS: ADMIT Family Medicine; ATTEND Family Medicine
DX: T83.511A Infection and inflammatory reaction due to indwelling urethral catheter, initial encounter (principal); G93.41 Metabolic encephalopathy; A41.51 Sepsis due to Escherichia coli [E. coli]; L03.116 Cellulitis of left lower limb; J96.01 Acute respiratory failure with hypoxia; R65.20 Severe sepsis without septic shock; I35.0 Nonrheumatic aortic (valve) stenosis; N39.0 Urinary tract infection, site not specified; Z87.440 Personal history of urinary (tract) infections; I11.0 Hypertensive heart disease with heart failure; Z85.038 Personal history of other malignant neoplasm of large intestine; Z88.8 Allergy status to other drugs, medicaments and biological substances; I50.9 Heart failure, unspecified; Z88.2 Allergy status to sulfonamides; E03.9 Hypothyroidism, unspecified; I48.0 Paroxysmal atrial fibrillation; E11.9 Type 2 diabetes mellitus without complications; N47.1 Phimosis; Z68.36 Body mass index [BMI] 36.0-36.9, adult; J20.9 Acute bronchitis, unspecified; L90.0 Lichen sclerosus et atrophicus; Y84.6 Urinary catheterization as the cause of abnormal reaction of the patient, or of later complication, without mention of misadventure at the time of the procedure; Z85.72 Personal history of non-Hodgkin lymphomas; Y92.039 Unspecified place in apartment as the place of occurrence of the external cause

== ENCOUNTER → 2017-08-20 | Outpatient (CLI) | payer OTHER, MEDICARE ==
[~2017-08-20] MED LIST changes: +DXY100 PO; +FURO40TA3 PO; +LPR25 PO; -LVQ500 PO; -MOMLX PO; -Nicotine TD; -TPRSR25 PO
== END | disposition home or self-care (01) ==
LOC: C.LABSPEC 23:50
PROVIDERS: ATTEND Family Medicine
DX: R41.0 Disorientation, unspecified (principal); R50.9 Fever, unspecified